=== PATIENT | female | born 1955 | race Caucasian/White ===

== ENCOUNTER 2019-09-04 15:03 | Outpatient (CLI) | payer OTHER, SELFPAY ==
[2019-09-04 16:01] LABS: Hematocrit 41.7 % (37.0-47.0); Hemoglobin 13.6 g/dL (12.0-15.0); Mean Corpuscular HGB Conc 32.6 g/dl (32-36); Mean Corpuscular Hemoglobin 32.5 pg (26-34); Mean Corpuscular Volume 99.8 fl (80-100); Mean Platelet Volume 9.2 fl (7.4-10.4); Platelet Count Result 211 k/mm3 (150-375); Red Blood Count 4.18 M/mm3 (4.2-5.4); Red Cell Distribution Width 12.9 % (11.5-14.5); White Blood Count 4.4 K/mm3 (4.5-10.0)
[2019-09-04 16:19] LABS: Alanine Aminotransferase 7 U/L (4-35); Albumin Level 4.3 g/dL (3.5-5.1); Alkaline Phosphatase 57 U/L (38-126); Amylase 114 U/L (30-110); Aspartate Amino Transferase 25 U/L (14-36); Bilirubin,Total 0.3 mg/dL (0.2-1.3); Blood Urea Nitrogen 24 mg/dL (7-17); Carbon Dioxide 26 mmol/L (22-30); Chloride 102 mmol/L (98-107); Estimated Glomerular Filt Rate > 60; Glucose 90 mg/dL (65-105); Potassium 4.2 mmol/L (3.4-5.0); Sodium 137 mmol/L (137-145)
== END 2019-09-04 15:04 | disposition home or self-care (01) ==
LOC: ANHLAB 15:05
PROVIDERS: PCP Internal Medicine; Visit Provider Internal Medicine Gastroenterology
DX: R10.9 Unspecified abdominal pain (principal)
CPT/HCPCS: 36415; 80053; 82150; 85027

== ENCOUNTER 2019-12-04 06:42 | Outpatient (CLI) | payer OTHER, SELFPAY ==
--- NOTE | ~2019-12-04 | MR_ITS ---
EXAMINATION: MR MRCP wo/w con/w 3D wo ind DATE: 12/04/2019 08:11 INDICATION: Severe abdominal pain. TECHNIQUE: Magnetic resonance imaging (MRI) of the abdomen was performed without and with 14 mL Multi Velasquez intravenous contrast. Sequences included coronal T2-weighted FS FSE, coronal T2-weighted FSE, a xial T1-weighted LAVA, coronal FS FIESTA, axial dual-echo T1-weighted SPGR, coronal lava-FLEX, sagitt al T2-weighted FSE, axial T2-weighted FSE, and axial DWI. Thick-slab T2-weighted FSE images were obta ined for magnetic resonance cholangiopancreatography (MRCP). Maximum intensity projection 3-D reconst ructions of the volumetric data were created by the technologist. Postcontrast sequences included cor onal LAVA-flex and time course of axial T1-weighted LAVA. COMPARISON: None. FINDINGS: ABDOMEN MRI: There is mild intrahepatic biliary duct dilatation. The common duct is dilated to 12 mm. The gallbladder is absent. The spleen, pancreas, adrenal glands, and kidneys are normal. There are n o dilated loops of bowel. There are no pathologically enlarged lymph nodes. There is trace pelvic asc ites. ABDOMEN MRCP: There is mild intrahepatic and extrahepatic biliary duct dilatation. The common duct is dilated to 12 mm. No choledocholithiasis. IMPRESSION: 1. Mild intrahepatic and extrahepatic biliary duct dilatation status post cholecystectomy. No choledo cholithiasis. Correlate with liver function tests to determine if this finding is clinically signific ant. Reviewed, dictated and finalized at location A. IMPRESSION: 1. Mild intrahepatic and extrahepatic biliary duct dilatation status post josef cystectomy. No choledocholithiasis. Correlate with liver function tests to dete rmine if this finding is clinically significant.
[2019-12-04 07:22] LABS: Estimated Glomerular Filt Rate > 60
== END 2019-12-04 06:43 | disposition home or self-care (01) ==
PROVIDERS: PCP Internal Medicine; Visit Provider Internal Medicine Gastroenterology
DX: R10.9 Unspecified abdominal pain (principal); Z90.49 Acquired absence of other specified parts of digestive tract
CPT/HCPCS: 74183; 76376; A9577

== ENCOUNTER 2019-12-30 04:06 | Outpatient (CLI) | payer OTHER, SELFPAY ==
[2019-12-30 19:05] LABS: SARS-CoV-2 RNA PCR Negative
== END 2019-12-30 04:07 | disposition home or self-care (01) ==
LOC: ANHCOVIDDT 04:06
PROVIDERS: PCP Internal Medicine; Visit Provider Internal Medicine Critical Care Medicine
DX: Z01.812 Encounter for preprocedural laboratory examination (principal); Z20.828 Contact with and (suspected) exposure to other viral communicable diseases
CPT/HCPCS: 87635; C9803; U0003

== ENCOUNTER 2021-12-30 17:30 | Emergency (ER) | payer OTHER, SELFPAY ==
[2021-12-30] VITALS (12 sets, daily range): BP systolic 91–139; BP diastolic 50–91; PULSE 78–92; RESP 8–21; TEMP 36.2–36.7; O2SAT 96–100
--- NOTE | ~2021-12-30 | CT_ITS ---
EXAMINATION: CT abdomen pelvis w con DATE: 12/30/2021 19:31 INDICATION: Epigastric pain. Nausea, vomiting and diarrhea. TECHNIQUE: Computed tomography (CT) of the abdomen and pelvis was performed with 100 mL Omnipaque-350 intravenous contrast. Automated exposure control and iterative reconstruction technique were employe d. The dose-length product was 497.61 mGy-cm. COMPARISON: MRI/MRCP dated 12/04/2019 FINDINGS: Mild atelectasis in the lingula and bilateral lower lobes. Heart size is normal. No pericardial or pl eural effusion. Postoperative change of prior Magaly-en-Y gastric bypass procedure. No significant celeste ge in mild intrahepatic biliary ductal dilation and mild dilation of the common bile duct which measu res up to 12 mm in maximal diameter likely related to prior cholecystectomy with surgical clips at th e gallbladder fossa. Calcified hepatic nodule along the ligamentum teres consistent with old granulom atous disease. Fluid scattered throughout the colon consistent with diarrhea. No dilated bowel to sug gest obstruction. The appendix is not visualized. No pericecal inflammatory change to suggest acute a ppendicitis. Bladder is normal. The uterus is not identified and has likely been surgically resected. No free intraperitoneal gas or fluid. No pathologically enlarged abdominal or pelvic lymphadenopathy . Mild S-shaped curvature of the thoracolumbar spine with severe spondylosis. IMPRESSION: 1. Chronic mild intrahepatic and extrahepatic biliary ductal dilation likely related to prior cholecy stectomy. Could consider correlation with liver function tests. 2. Nonspecific diarrhea. Correlate clinically for gastroenteritis. Reviewed, dictated and finalized at location A. IMPRESSION: 1. Chronic mild intrahepatic and extrahepatic biliary ductal dilation likely re lated to prior cholecystectomy. Could consider correlation with liver function tests. 2. Nonspecific diarrhea. Correlate clinically for gastroenteritis.
--- NOTE | 2021-12-30 17:45 | ED.ABDPAIN ---
HPI - Abdominal Pain General Chief Complaint: Abdominal Pain <ABBY Salazar Last Filed: 12/31/21 01:07> Stated Complaint: ABD Pain, Diarrhea <ABBY Salazar Last Filed: 12/31/21 01:07> Time Seen by Provider: 12/30/21 17:38 <ABBY Salazar Last Filed: 12/31/21 01:07> Source: patient <ABBY Salazar Last Filed: 12/31/21 01:07> Mode of arrival: ambulatory <ABBY Salazar Filed: 12/31/21 01:07> Limitations: no limitations <ABBY Salazar Filed: 12/31/21 01:07> History of Present Illness HPI narrative: Patient is a 66 y/o female who presents to the ED with c/o abdominal pain, N/V/D. Patient reports she received her flu vaccination on Saturday and began to feel unwell afterwards. She thought it was just a reaction to the vaccine. She then developed nausea, vomiting, diarrhea on Saturday evening. Symptoms, particularly the diarrhea, have since persisted. Patient also reports having upper abdominal pain, decreased intake, generalized weakness. Denies any relieving factors. She has not taken anything for pain. Patient denies any dysuria, hematuria, fevers, hematemesis, melena, rectal bleeding. <ABBY Salazar Last Filed: 12/31/21 01:07> Related Data Home Medications: Home Medications Medication Instructions Recorded Confirmed albuterol sulfate 90 mcg/actuation inhalation 12/30/21 aerosol inhaler alprazolam 1 mg tablet 1 mg PO HS PRN anxiety 12/30/21 folic acid 1 mg tablet 12/30/21 <ABBY Salazar Last Filed: 12/31/21 01:07> Allergies/Adverse Reactions: Allergies Allergy/AdvReac Type Severity Reaction Status Date / Time ipratropium Allergy Severe nervousness Verified 12/30/21 17:50 albuterol AdvReac Severe Short of Verified 12/30/21 17:50 breath amitriptyline AdvReac Severe Nervousness Verified 12/30/21 17:50 dexamethasone AdvReac Severe short of Verified 12/30/21 17:50 breath duloxetine AdvReac Severe Anxiety Verified 12/30/21 17:50 prednisone AdvReac Severe short of Verified 12/30/21 17:50 breath topiramate AdvReac Severe Nausea and Verified 12/30/21 17:50 Vomiting <Khadra Beach PA-C - Last Filed: 12/31/21 01:07> Review of Systems Review of Systems: CONSTITUTIONAL: Reports decreased appetite, generalized weakness. Denies fever, chills, or sweats. CARDIOVASCULAR: Denies chest pain. RESPIRATORY: Denies cough or dyspnea. GASTROINTESTINAL: Reports upper abdominal pain, nausea, vomiting, and diarrhea. Denies constipation, melena, rectal bleeding. GENITOURINARY: Denies dysuria or hematuria. NEUROLOGICAL: Denies focal weakness. <Khadra Beach PA-C - Last Filed: 12/31/21 01:07> All systems reviewed & are unremarkable except as noted in HPI and below <Khadra Beach PA-C - Last Filed: 12/31/21 01:07> [facility] Past Medical History Medical History: Medical History Anemia Anxiety Arthritis Asthma Chronic pain syndrome Dilated bile duct Establishing care with new doctor, encounter for Angie's thyroiditis Headache, migraine Influenza vaccination administered at current visit Kidney disease Nausea and vomiting in adult Personal history of diabetes mellitus resolved with gastric bypass Postherpetic neuralgia Psychiatric diagnosis Restless legs syndrome Skin cancer Small intestinal bacterial overgrowth Stomach ulcer Thyroid disease Vitamin B12 deficiency Vitamin D deficiency, unspecified Voice hoarseness <Khadra Beach PA-C - Last Filed: 12/31/21 01:07> Surgical History Surgical History: Surgical History History of cholecystectomy History of esophagogastroduodenoscopy (EGD) History of gastric bypass History of hysterectomy History of thyroidectomy History
[2021-12-30 18:26] LABS: Basophils Absolute Auto 0.1 K/mm3 (0.0-0.1); Basophils Percent Auto 1.8 % (0.2-1.2); Eosinophils Percent Auto 0.3 % (0-4.4); Hematocrit 40.3 % (37.0-47.0); Hemoglobin 13.7 g/dL (12.0-15.0); Immature Granulocyte Absolute 0.04 K/mm3 (0.00-0.031); Lymphocytes Percent Auto 12.9 % (18.3-44.2); Mean Corpuscular Hemoglobin 33.7 pg (26-34); Mean Corpuscular Volume 99.3 fl (80-100); Monocytes Absolute Auto 0.4 K/mm3 (0.1-0.6); Monocytes Percent Auto 10.6 % (2.6-8.5); Neutrophils Absolute Auto 2.9 K/mm3 (1.3-6.7); Neutrophils Percent Auto 73.4 % (45.5-73.1); Platelet Count Result 174 k/mm3 (150-375); Red Blood Count 4.06 M/mm3 (4.2-5.4); Red Cell Distribution Width 12.2 % (11.5-14.5); White Blood Count 3.9 K/mm3 (4.5-10.0)
[2021-12-30 18:36] LABS: Alanine Aminotransferase 15 U/L (6-35); Albumin Level 4.3 g/dL (3.5-5.1); Alkaline Phosphatase 69 U/L (38-126); Anion Gap 13 mmol/L (8-16); Aspartate Amino Transferase 45 U/L (14-36); Bilirubin,Total 0.9 mg/dL (0.2-1.3); Blood Urea Nitrogen 24 mg/dL (7-17); Calcium 7.2 mg/dL (8.4-10.2); Carbon Dioxide 24 mmol/L (22-30); Chloride 95 mmol/L (98-107); Estimated Glomerular Filt Rate 45; Glucose 112 mg/dL (65-110); Lipase 21 U/L (23-300); Potassium 3.4 mmol/L (3.4-5.0); Sodium 132 mmol/L (137-145)
[2021-12-30 18:41] LABS: Ovalocytes 1+ (NORMAL); Platelet Estimate Adequate (Adequate); Schistocytes None Seen (NORMAL)
[2021-12-30 19:00] LABS: Add Urine Microscopic? YES; Appearance Urine Cloudy (Clear); Bilirubin Urine Negative (Negative); Blood Urine 2+ (Negative); Color Urine Amber (Yellow); Glucose Urine UA Negative (Negative); Ketones Urine Trace mg/dL (Negative); Leukocyte Esterase Ur Negative LEU/UL (Negative); Mucus Urine Heavy /lpf; Nitrate Urine Negative (Negative); Protein Urine 1+ mg/dL (Negative); RBC Urine 21-50 /hpf (0-2); Urobilinogen Urine Negative mg/dL (<2.0)
[2021-12-30 19:01] LABS: Influenza A QL RT-PCR Negative (Negative); Influenza B QL RT-PCR Negative (Negative); SARS-CoV-2 RNA PCR Negative
[2021-12-30] MEDS: ONDANSETRON INJ 4 MG/2 ML VIAL IV PUSH (19:16)
[2021-12-30] MEDS: SODIUM CHLORIDE 0.9% IV 1,000 ML 999 ML IV CONT ×2 (19:32→20:54)
[2021-12-30 22:54] LABS: Toxigenic C. Diff NEGATIVE (NEGATIVE)
== END 2021-12-30 23:56 | disposition home or self-care (01) ==
PROVIDERS: Physician Assistant; Emergency Provider Emergency Medicine; PCP Physician Assistant Medical
DX: K52.9 Noninfective gastroenteritis and colitis, unspecified (principal); Z20.822 Contact with and (suspected) exposure to COVID-19; G89.4 Chronic pain syndrome; E06.3 Autoimmune thyroiditis; N28.9 Disorder of kidney and ureter, unspecified; F41.9 Anxiety disorder, unspecified; G25.81 Restless legs syndrome; E53.8 Deficiency of other specified B group vitamins; E55.9 Vitamin D deficiency, unspecified; E89.0 Postprocedural hypothyroidism; Z98.84 Bariatric surgery status; Z90.710 Acquired absence of both cervix and uterus; Z86.2 Personal history of diseases of the blood and blood-forming organs and certain disorders involving the immune mechanism; Z87.891 Personal history of nicotine dependence
CPT/HCPCS: 36415; 74177; 80053; 81001; 83690; 85025; 87045; 87077; 87086; 87186; 87427; 87493; 87502; 96361; 96365; 96375; 99284; C9803; J0131; J2405; J7030; Q9967; U0003; U0005

== ENCOUNTER 2022-09-17 18:03 | Emergency (ER) | payer MEDICARE, SELFPAY ==
[2022-09-17 18:10] VITALS: BP 107/62; PULSE 78; RESP 20; TEMP 36.5; O2SAT 97
[2022-09-17 20:14] VITALS: BP 116/80; PULSE 70; RESP 16; O2SAT 98
[2022-09-17 20:18] LABS: Basophils Percent Auto 0.9 % (0.2-1.2); Eosinophils Absolute Auto 0.1 K/mm3 (0-0.3); Eosinophils Percent Auto 1.5 % (0-4.4); Hematocrit 39.6 % (37.0-47.0); Hemoglobin 12.8 g/dL (12.0-15.0); Immature Granulocyte Absolute 0.01 K/mm3 (0.00-0.031); Immature Granulocyte Percent A 0.2 % (0-0.5); Lymphocytes Absolute Auto 1.71 K/mm3 (0.9-3.2); Lymphocytes Percent Auto 37.3 % (18.3-44.2); Mean Corpuscular HGB Conc 32.3 g/dl (32-36); Mean Corpuscular Hemoglobin 32.8 pg (26-34); Mean Corpuscular Volume 101.5 fl (80-100); Mean Platelet Volume 8.9 fl (7.4-10.4); Monocytes Absolute Auto 0.4 K/mm3 (0.1-0.6); Monocytes Percent Auto 9.6 % (2.6-8.5); Neutrophils Absolute Auto 2.3 K/mm3 (1.3-6.7); Neutrophils Percent Auto 50.5 % (45.5-73.1); Platelet Count Result 203 k/mm3 (150-375); Red Cell Distribution Width 12.9 % (11.5-14.5); White Blood Count 4.6 K/mm3 (4.5-10.0)
[2022-09-17 20:28] LABS: Anion Gap 3 mmol/L (8-16); Blood Urea Nitrogen 16 mg/dL (7-17); Calcium 5.4 mg/dL (8.4-10.2); Carbon Dioxide 35 mmol/L (22-30); Chloride 99 mmol/L (98-107); Estimated Glomerular Filt Rate > 60; Glucose 92 mg/dL (65-110); Sodium 137 mmol/L (137-145)
[2022-09-17 21:42] LABS: Parathyroid Intact 24.5 pg/mL (7.5-53.5)
--- NOTE | 2022-09-17 21:42 | ECG_ITS ---
Measurements Intervals [place] Rate: 68 P: 29 ND: 204 QRS: -10 QRSD: 78 T: 11 QT: 448 QTc: 477 Interpretive Statements SINUS RHYTHM DELAYED PRECORDIAL R/S TRANSITION LOW QRS VOLTAGE IN PRECORDIAL LEADS BASELINE ARTIFACT- I, II, III, AVR, AVL, AVF BORDERLINE ECG NO PREVIOUS ECG AVAILABLE FOR COMPARISON Electronically Signed On 09-18-2022 6:55:04 CDT by Marshall Knowles D.O.
--- NOTE | 2022-09-17 21:51 | ED.RECABL ---
HPI - Recheck/Abnormal Lab/Rx General Chief Complaint: Recheck/Abnormal Lab/Rx Stated Complaint: needs calcium infusion Time Seen by Provider: 09/17/22 20:12 Source: patient and old records reviewed Mode of arrival: ambulatory Limitations: no limitations History of Present Illness HPI narrative: Patient is a 67-year-old female who presents to the ED with report of muscle spasms. Patient reports a history of thyroidectomy and chronic hypocalcemia. She takes a calcium carbonate 500 mg supplement twice daily. Over the last 3 to 4 days, she reports having muscle spasms in her legs and hands, paraesthesias in her lips and fingers. She was advised to come to the ED for further evaluation. Patient states her symptoms have never been this severe before. She does not currently see an stock order lister. She denies any fevers, recent illness, CP, SOB, N/V, weakness. Related Data Home Medications Medication Instructions Recorded Confirmed calcium carbonate 500 mg calcium 500 mg PO BID 02/14/22 09/03/22 (1,250 mg) chewable tablet (Calcium 500) cholecalciferol (vitamin D3) 100 100 mcg PO DAILY 02/14/22 09/03/22 mcg (4,000 unit) tablet Allergies Allergy/AdvReac Type Severity Reaction Status Date / Time ipratropium Allergy Severe nervousness Verified 08/23/22 10:35 albuterol AdvReac Severe Short of Verified 08/23/22 10:35 breath amitriptyline AdvReac Severe Nervousness Verified 08/23/22 10:35 dexamethasone AdvReac Severe short of Verified 08/23/22 10:35 breath duloxetine AdvReac Severe Anxiety Verified 08/23/22 10:35 prednisone AdvReac Severe short of Verified 08/23/22 10:35 breath topiramate AdvReac Severe Nausea and Verified 08/23/22 10:35 Vomiting Review of Systems Review of Systems: CONSTITUTIONAL: Denies fever, chills, or sweats. EYES: Denies visual changes. CARDIOVASCULAR: Denies chest pain. RESPIRATORY: Denies dyspnea. GASTROINTESTINAL: Denies abdominal pain, nausea, vomiting. GENITOURINARY: Denies dysuria or hematuria. MUSCULOSKELETAL: See HPI. NEUROLOGIC: See HPI. All systems reviewed & are unremarkable except as noted in HPI and below PMFSH Past Medical History Medical History Anemia Anxiety Arthritis Asthma Chronic pain syndrome Dilated bile duct Establishing care with new doctor, encounter for Angie's thyroiditis Headache, migraine Influenza vaccination administered at current visit Kidney disease Nausea and vomiting in adult chronic, daily since Bariatric surgery Pain of right lower extremity Paresthesia hands and feet Personal history of diabetes mellitus resolved with gastric bypass Post-nasal drip Postherpetic neuralgia Psychiatric diagnosis Restless legs syndrome Skin cancer Small intestinal bacterial overgrowth Spinal stenosis Stomach ulcer Thyroid disease Vitamin B12 deficiency Vitamin D deficiency, unspecified Voice hoarseness Surgical History Surgical History History of cholecystectomy History of esophagogastroduodenoscopy (EGD) History of gastric bypass History of hysterectomy History of thyroidectomy History of tonsillectomy Family History Family History Mother Hypertension Family history of diabetes mellitus in first degree relative Family history of lung cancer Family history of heart disease in male family member before age 55 Father Malignant neoplasm of prostate Family history of heart disease in male family member before age 55 Other Family history of malignant neoplasm of breast Social History Social History Smoking packs per day: 1 Smoking cigarettes per day: 20.0 Years smoked: 15 Smoking pack-years: 15.00 Smoking status: Former smoker Second hand tobacco smoke exposure: No Smoking
[2022-09-17 22:05] LABS: Magnesium 1.9 mg/dL (1.6-2.3); Phosphorus 6.7 mg/dL (2.5-4.5)
[2022-09-17 22:06] VITALS: BP 107/75; PULSE 69; RESP 16; O2SAT 100
[2022-09-17] MEDS: CALCIUM GLUC 2,000 MG/NS 100ML 2,000 MG/100 ML BAG 100 MG IVPB (22:09)
[2022-09-17 23:11] VITALS: BP 121/74; PULSE 71; RESP 17; O2SAT 100
[2022-09-17 23:44] LABS: Free T4 Free Thyroxine Reflex 1.58 ng/dL (0.78-2.19)
[2022-09-18 00:26] LABS: Total Triiodothyronine (T3) 1.23 NG/ML (0.97-1.69)
[2022-09-18 01:43] VITALS: BP 115/80; PULSE 71; RESP 15; TEMP 36.9; O2SAT 97
[2022-09-18 03:50] VITALS: BP 122/78; PULSE 71; RESP 17; O2SAT 100
[2022-09-25 15:17] LABS: Parathyroid Hormone Related Pr 12 pg/mL (11-20)
== END 2022-09-18 03:54 | disposition short-term general hospital (02) ==
PROVIDERS: Emergency Medicine; Emergency Provider Physician Assistant; PCP Physician Assistant Medical
DX: E83.51 Hypocalcemia (principal); R20.2 Paresthesia of skin; R25.2 Cramp and spasm; E03.9 Hypothyroidism, unspecified; Z87.891 Personal history of nicotine dependence
CPT/HCPCS: 36415; 80048; 83519; 83735; 83970; 84100; 84439; 84443; 84480; 85025; 93005; 96365; 99285; J0613

== ENCOUNTER 2023-03-27 15:33 | Outpatient (CLI) | payer MEDICARE, SELFPAY ==
[2023-03-27 16:54] LABS: Iron 55 ug/dL (37-170)
[2023-03-27 16:56] LABS: Alanine Aminotransferase 13 U/L (6-35); Albumin Level 4.1 g/dL (3.5-5.1); Alkaline Phosphatase 98 U/L (38-126); Anion Gap 5 mmol/L (8-16); Aspartate Amino Transferase 41 U/L (14-36); Bilirubin,Total 0.3 mg/dL (0.2-1.3); Blood Urea Nitrogen 27 mg/dL (7-17); Carbon Dioxide 28 mmol/L (22-30); Chloride 104 mmol/L (98-107); Estimated Glomerular Filt Rate > 60; Glucose 90 mg/dL (65-110); Potassium 4.4 mmol/L (3.4-5.0); Sodium 137 mmol/L (137-145)
[2023-03-27 17:09] LABS: Percent Iron Saturation 10 % (20-50)
[2023-03-27 17:56] LABS: Ferritin 9.54 ng/mL (11.1-264)
[2023-03-27 18:25] LABS: Folic Acid > 20.0 ng/mL (2.76->20)
[2023-03-28 19:44] LABS: Immunoglobulin A 151 mg/dL (70-400); Immunoglobulin G 937 mg/dL (700-1600); Immunoglobulin M 77 mg/dL (40-230)
[2023-03-29 12:45] LABS: Kappa\\Lambda Light Chains 1.39 (0.26-1.65); Lambda Light Chain 16.8 mg/L (5.7-26.3)
[2023-03-29 17:16] LABS: Albumin 3.9 g/dL (3.8-4.8); Alpha 1 Globulin 0.3 g/dL (0.2-0.3); Alpha 2 Globulin 0.8 g/dL (0.5-0.9); Beta 1 Globulin 0.6 g/dL (0.4-0.6); Gamma Globulin 0.8 g/dL (0.8-1.7); Protein, Total 6.8 g/dL (6.1-8.1)
[2023-04-01 07:20] LABS: Methylmalonic Acid 146 nmol/L (87-318)
[2023-04-05 15:34] LABS: Soluble Transferrin Receptor 2.52 mg/L (0.76-1.76)
== END 2023-03-27 15:34 | disposition home or self-care (01) ==
LOC: ANHLAB 15:35
PROVIDERS: PCP Physician Assistant Medical; Visit Provider Internal Medicine Hematology & Oncology
DX: D47.2 Monoclonal gammopathy (principal); D64.9 Anemia, unspecified
CPT/HCPCS: 36415; 80053; 82607; 82728; 82746; 82784; 83540; 83550; 83883; 83921; 84155; 84165; 84238

== ENCOUNTER 2023-03-29 16:19 | Outpatient (CLI) | payer MEDICARE, SELFPAY ==
--- NOTE | ~2023-03-29 | XR_ITS ---
XR chest 2V DATE: 03/29/2023 16:38 INDICATION: Shortness of breath for 2 years, worsening lately. History of hypertension. TECHNIQUE: PA and lateral views COMPARISON: April 21, 2018 2 view chest FINDINGS: Heart size is within normal limits. There is aortic tortuosity. No hilar or mediastinal enl argement. No pulmonary infiltrate or consolidation, pleural effusion or pulmonary vascular congestion or pneumothorax. Postoperative change of left upper quadrant of abdomen. IMPRESSION: No active cardiopulmonary disease Reviewed, dictated and finalized at location B. MANAGER
== END 2023-03-29 16:20 | disposition home or self-care (01) ==
LOC: ANHIMG 16:21
PROVIDERS: PCP Physician Assistant Medical; Visit Provider Internal Medicine
DX: R06.02 Shortness of breath (principal)
CPT/HCPCS: 71046

== ENCOUNTER 2023-07-22 16:22 | Outpatient (CLI) | payer MEDICARE, SELFPAY ==
--- NOTE | ~2023-07-22 | MR_ITS ---
MRI of the cervical spine Clinical History: Cervicalgia Technique: Axial T2-weighted and gradient images, and sagittal T1-weighted, T2-weighted, and STIR [place] ges were acquired. Findings: There is no fracture or subluxation of the cervical spine. Vertebral bodies maintain normal height and alignment. No suspicious bone marrow signal abnormality seen. At C2-C3, there is mild degenerative disc narrowing. There is minimal disc bulge. No spinal canal piper nosis, cord compression, or neural foraminal narrowing. At C3-C4, there is minimal disc bulge and left-sided facet arthropathy. Probable minimal left neural foraminal narrowing. Right neural foramen preserved. No central canal stenosis or cord compression. At C4-C5, there is advanced degenerative distended with minimal disc bulge. There is mild bilateral f acet arthropathy with bilateral neural foraminal narrowing, left worse than right. No central canal s tenosis or cord compression. At C5-C6, there is advanced generative disc narrowing with small disc osteophyte complex. No canal st enosis or cord compression. There is mild bilateral facet arthropathy without definite neural foramin al narrowing. At C6-C7, there is advanced degenerative disc narrowing. There is minimal disc osteophyte complex, wi thout central canal stenosis or cord compression. No definite neural foraminal narrowing seen. No abnormal signal seen in the spinal cord. Paravertebral soft tissues are unremarkable. Impression: [id number] degenerative spondylosis, as above. Reviewed, dictated and finalized at [facility]. Impression: [id number] degenerative spondylosis, as above.
== END 2023-07-22 16:23 | disposition home or self-care (01) ==
LOC: ANHIMG 16:24
PROVIDERS: PCP Physician Assistant Medical; Visit Provider Physician Assistant Medical
DX: R20.2 Paresthesia of skin (principal); M48.00 Spinal stenosis, site unspecified; M47.892 Other spondylosis, cervical region
CPT/HCPCS: 72141

== ENCOUNTER 2023-07-31 09:54 | Outpatient (CLI) | payer MEDICARE, SELFPAY ==
--- NOTE | 2023-07-31 11:30 | NEURO_ITS ---
Impression: # Non-diabetic complains of numbness in upper and lower extremities. # No Carpal Tunnel Syndrome or ulnar neuropathy. # Sensory neuropathy of lower extremities. # Right posterior tibial neuropathy. # Needle/EMG exam decreased motor unit potentials but no fibs or myotonia. # Clinical correlation recommended. Nerve Conduction Studies Anti Sensory Summary Table Stim Site NR Peak (ms) P-T Amp (?V) Site1 Site2 Delta-P (ms) Dist (cm) Evin (m/s) Left Median Anti Sensory (2-3nd Digit) Wrist 3.7 27.5 Wrist 2-3nd Digit 3.7 14.0 38 Wrist 3.8 55.5 Wrist 2-3nd Digit 3.7 14.0 38 Right Median Anti Sensory (2-3nd Digit) Wrist 3.6 40.8 Wrist 2-3nd Digit 3.6 14.0 39 Wrist 3.4 51.6 Wrist 2-3nd Digit 3.6 14.0 39 Left Radial Anti Sensory (Base 1st Digit) Wrist 2.0 37.5 Wrist Base 1st Digit 2.0 0.0 Right Radial Anti Sensory (Base 1st Digit) Wrist 2.4 25.8 Wrist Base 1st Digit 2.4 0.0 Left Sup Fibular Anti Sensory (Ant Lat Mall) NO RESPONSE 14 cm NR 14 cm Ant Lat Mall 16.0 Right Sup Fibular Anti Sensory (Ant Lat Mall) NO RESPONSE 14 cm NR 14 cm Ant Lat Mall 16.0 Left Sural Anti Sensory (Lat Mall) Calf 3.8 7.3 Calf Lat Mall 3.8 16.0 42 Right Sural Anti Sensory (Lat Mall) NO RESPONSE Calf NR Calf Lat Mall 16.0 Left Ulnar Anti Sensory (5th Digit) Wrist 3.2 40.0 Wrist 5th Digit 3.2 14.0 44 Right Ulnar Anti Sensory (5th Digit) Wrist 2.8 23.7 Wrist 5th Digit 2.8 14.0 50 Motor Summary Table Stim Site NR Onset (ms) O-P Amp (mV) Site1 Site2 Delta-0 (ms) Dist (cm) Evin (m/s) Left Median Motor (Abd Poll Brev) Wrist 4.1 2.2 Elbow Wrist 4.6 28.0 61 Elbow 8.7 2.1 Right Median Motor (Abd Poll Brev) Wrist 3.6 1.9 Elbow Wrist 4.8 28.0 58 Elbow 8.4 5.8 Left Peroneal Motor (Vastus Med) Ankle 5.9 3.1 Popit Ankle 7.5 37.0 49 Popit 13.4 3.0 Right Peroneal Motor (Vastus Med) Ankle 5.9 1.0 Popit Ankle 6.4 34.0 53 Popit 12.3 1.0 Left Tibial Motor (Abd Shahid Brev) Ankle 5.5 1.9 Knee Ankle 8.9 39.0 44 Knee 14.4 3.0 Right Tibial Motor (Abd Shahid Brev) Ankle 5.2 3.0 Knee Ankle 10.3 37.0 36 Knee 15.5 2.5 Left Ulnar Motor (Abd Dig Minimi) Wrist 2.9 9.3 A Elbow Wrist 5.1 30.0 59 A Elbow 8.0 8.0 Right Ulnar Motor (Abd Dig Minimi) Wrist 2.6 10.1 A Elbow Wrist 4.7 28.0 60 A Elbow 7.3 8.4 F Wave Studies NR F-Lat (ms) L-R F-Lat (ms) Left Median (Mrkrs) (Abd Poll Brev) 27.27 0.00 Right Median (Mrkrs) (Abd Poll Brev) 27.27 0.00 Left Peroneal (Mrkrs) (EDB) 56.72 0.71 Right Peroneal (Mrkrs) (EDB) 57.43 0.71 Left Tibial (Mrkrs) (Abd Hallucis) 58.21 1.48 Right Tibial (Mrkrs) (Abd Hallucis) 56.72 1.48 Left Ulnar (Mrkrs) (Abd Dig Min) 27.42 1.07 Right Ulnar (Mrkrs) (Abd Dig Min) 26.35 1.07 EMG Side Muscle Nerve Root Ins Act Fibs Amp Dur Recrt Comment Right 1stDorInt Ulnar C8-T1 Nml Nml Nml Nml Nml Right Ext Indicis Radial (Post Int) C7-8 Nml Nml Nml Nml Nml Right Ext Digitorum Radial (Post Int) C7-8 Nml Nml Nml Nml Nml Right BrachioRad Radial C5-6 Nml Nml Nml Nml Nml Right PronatorTeres Median C6-7 Nml Nml Nml Nml Nm
== END 2023-07-31 09:55 | disposition home or self-care (01) ==
LOC: ANHNEURO 09:54
PROVIDERS: PCP Physician Assistant Medical; Visit Provider Physician Assistant Medical
DX: G62.89 Other specified polyneuropathies (principal)
CPT/HCPCS: 95886; 95913

== ENCOUNTER 2023-08-14 15:56 | Outpatient (CLI) | payer MEDICARE, SELFPAY ==
--- NOTE | ~2023-08-14 | CT_ITS ---
EXAMINATION: CT brain wo con DATE: 08/14/2023 16:22 INDICATION: Syncope. TECHNIQUE: Computed tomography (CT) of the head was performed without intravenous contrast. The mA wa s adjusted according to patient size. Iterative reconstruction technique was employed. The dose-lengt h product was 605.33 mGy-cm. COMPARISON: None FINDINGS: There is no intracranial hemorrhage, acute infarction, or abnormal intracranial mass lesion . The ventricles are normal in size. The orbits are normal. The paranasal sinuses are clear. The mast oid air cells are normal. IMPRESSION: 1. Normal brain. Reviewed, dictated and finalized at location A. IMPRESSION: 1. Normal brain.
--- NOTE | ~2023-08-14 | MR_ITS ---
MRI of the brain Clinical History: Myoclonus Technique: Axial and sagittal T1-weighted images were acquired. These were followed by axial T2-weigh patience, diffusion weighted, gradient, and FLAIR images. Following intravenous administration of 18 cc Mu ltiHance gadolinium, T1-weighted fat-sat imaging was performed in the axial and coronal planes. Findings: There is no acute infarct, intracranial hemorrhage or mass lesion. There are minimal chroni c white matter changes in the periventricular white matter bilaterally. Ventricles and subarachnoid spaces are unremarkable. Orbits are unremarkable. Paranasal sinuses and m astoid air cells are clear. Major intracranial flow voids are grossly intact. Sagittal midline structures are intact. No abnormal postcontrast enhancement identified. IMPRESSION: Minimal chronic microvascular ischemic change, otherwise unremarkable exam. Reviewed, dictated and finalized at location .
== END 2023-08-14 15:57 | disposition home or self-care (01) ==
LOC: ANHIMG 15:59
PROVIDERS: PCP Physician Assistant Medical; Visit Provider Physician Assistant Medical
DX: I67.82 Cerebral ischemia (principal); R20.2 Paresthesia of skin
CPT/HCPCS: 70450; 70553; A9577

== ENCOUNTER 2023-08-22 14:10 | Outpatient (CLI) | payer MEDICARE, SELFPAY ==
[2023-08-22 14:32] LABS: Basophils Absolute Auto 0.1 K/mm3 (0.0-0.1); Basophils Percent Auto 1.1 % (0.2-1.2); Eosinophils Percent Auto 0.9 % (0-4.4); Hematocrit 42.3 % (37.0-47.0); Hemoglobin 13.7 g/dL (12.0-15.0); Immature Granulocyte Absolute 0.01 K/mm3 (0.00-0.031); Immature Granulocyte Percent A 0.2 % (0-0.5); Immature Reticulocyte Fraction 9.1 % (3.0-15.9); Lymphocytes Absolute Auto 1.45 K/mm3 (0.9-3.2); Lymphocytes Percent Auto 31.2 % (18.3-44.2); Mean Corpuscular HGB Conc 32.4 g/dl (32-36); Mean Corpuscular Hemoglobin 31.7 pg (26-34); Mean Corpuscular Volume 97.9 fl (80-100); Mean Platelet Volume 8.8 fl (7.4-10.4); Monocytes Absolute Auto 0.4 K/mm3 (0.1-0.6); Monocytes Percent Auto 8.2 % (2.6-8.5); Neutrophils Absolute Auto 2.7 K/mm3 (1.3-6.7); Neutrophils Percent Auto 58.4 % (45.5-73.1); Platelet Count Result 210 k/mm3 (150-375); Red Blood Count 4.32 M/mm3 (4.2-5.4); Red Cell Distribution Width 14.1 % (11.5-14.5); Reticulocyte Hemoglobin Conten 34.8 pg (28.2-36.6); Reticulocyte Percent 1.42 % (0.7-4.3); Reticulocytes Absolute 0.06 10^6/uL (0.02-0.10); White Blood Count 4.7 K/mm3 (4.5-10.0)
== END 2023-08-22 14:11 | disposition home or self-care (01) ==
LOC: ANHLAB 14:12
PROVIDERS: PCP Physician Assistant Medical; Visit Provider Physician Assistant Medical
DX: D64.9 Anemia, unspecified (principal)
CPT/HCPCS: 36415; 85025; 85046

== ENCOUNTER 2024-02-26 16:31 | Outpatient (CLI) | payer MEDICARE, SELFPAY ==
--- NOTE | ~2024-02-26 | CT_ITS ---
EXAMINATION: CT abdomen pelvis wo con DATE: 02/26/2024 16:52 INDICATION: Unspecified abdominal pain. TECHNIQUE: Computed tomography (CT) of the abdomen and pelvis was performed without intravenous contr ast. Automated exposure control and iterative reconstruction technique were employed. The dose-length product was 1069.99 mGy-cm. COMPARISON: CT abdomen and pelvis 12/30/2021 FINDINGS: The visualized portions of the lung bases demonstrate mild atelectasis. A calcified left darien ng nodule is consistent with old granulomatous disease. No pleural effusion. The heart size is normal . No pericardial effusion. The liver is normal. Calcifications in the spleen are consistent with old granulomatous disease. There are changes of cholecystectomy. The pancreas, adrenal glands, and kidney s are normal. There is no urolithiasis. There is diverticulosis of the colon without evidence of dive rticulitis. There are no dilated loops of bowel. The appendix is not visualized. There are no patholo gically enlarged lymph nodes. There is no free intraperitoneal fluid. There are changes of gastric by pass procedure. There is severe lumbar spondylosis and moderate thoracic spondylosis. IMPRESSION: 1. No etiology for the patient's symptoms. Reviewed, dictated and finalized at location A. THAND REPORTER
== END 2024-02-26 16:32 | disposition home or self-care (01) ==
PROVIDERS: PCP Physician Assistant Medical; Visit Provider Physician Assistant Medical
DX: R10.9 Unspecified abdominal pain (principal)
CPT/HCPCS: 74176

== ENCOUNTER 2024-06-01 14:57 | Observation (INO) | payer MEDICARE, SELFPAY ==
[2024-06-01] VITALS (9 sets, daily range): BP systolic 133–147; BP diastolic 74–80; PULSE 61–73; RESP 17–20; TEMP 36.4–37.1; O2SAT 98–100; BMI 42.5
--- NOTE | ~2024-06-01 | MR_ITS ---
EXAMINATION: MR brain/brain stem wo/w con DATE: 06/02/2024 12:41 INDICATION: Right facial numbness. TECHNIQUE: Magnetic resonance imaging (MRI) of the brain and brainstem was performed without and with 18 mm ProHance intravenous contrast. COMPARISON: Brain MRI 08/14/2023, head CT 06/01/2024 FINDINGS: There are scattered areas of nonspecific increased T2-weighted signal intensity in the cere bral white matter similar to the prior exam, which is within normal limits for the patient's age. The re is no intracranial hemorrhage, acute infarction, or abnormal intracranial mass lesion. The ventric les are normal in size. IMPRESSION: 1. Normal aging brain. Reviewed, dictated and finalized at location A. IMPRESSION: 1. Normal aging brain.
--- NOTE | ~2024-06-01 | CT_ITS ---
EXAMINATION: CT brain wo con DATE: 06/01/2024 15:16 INDICATION: tingling/numbness one side of body . TECHNIQUE: Computed tomography (CT) of the head was performed without intravenous contrast. The mA wa s adjusted according to patient size. Iterative reconstruction technique was employed. The dose-lengt h product was 605.33 mGy-cm. COMPARISON: 08/14/2023. FINDINGS: No acute intracranial hemorrhage or extra-axial fluid collection. No hydrocephalus, mass, or herniation. No acute ischemic infarct. Unremarkable dural venous sinus attenuation. No acute osseous abnormality. The aerated spaces are clear. IMPRESSION: No acute intracranial process. Reviewed, dictated and finalized at location K.
--- NOTE | ~2024-06-01 | US_ITS ---
EXAMINATION: US carotid duplex BI DATE: 06/02/2024 10:51 INDICATION: Facial paresthesias. TECHNIQUE: Grayscale, color Doppler, and pulsed Doppler images of the cervical carotid arteries were obtained. The degree of vessel stenosis is placed in one of the following categories: normal, <50%, 5 0-69%, >=70% but less than near-occlusion, near-occlusion, or total occlusion. Note that percent sten osis relative to normal distal artery lumen diameter is indirectly measured from velocity measurement s as described by Micha, et al. Radiology 2003; 229:340-346. COMPARISON: None. FINDINGS: RIGHT: The right common carotid artery (CCA) peak systolic velocity (PSV) is 62 cm/s. The right internal car otid artery (ICA) PSV is 61 cm/s. The right ICA end-diastolic velocity (EDV) is 26 cm/s. The right IC A/CCA PSV ratio is 1.0. Grayscale and color Doppler images yield an estimate of <50% diameter reducti on from plaque in the ICA. There is antegrade flow in the right vertebral artery. LEFT: The left CCA PSV is 59 cm/s. The left ICA PSV is 45 cm/s. The left ICA EDV is 18 cm/s. The left ICA/C CA PSV ratio is 0.8. Grayscale and color Doppler images yield an estimate of <50% diameter reduction from plaque in the ICA. There is antegrade flow in the left vertebral artery. IMPRESSION: 1. <50% stenosis in the right internal carotid artery. 2. <50% stenosis in the left internal carotid artery. Reviewed, dictated and finalized at location A.
--- NOTE | ~2024-06-01 | US_ITS ---
EXAMINATION: US venous doppler [facility] DATE: 06/02/2024 18:16 INDICATION: Lower limb swelling, rule out dvt . TECHNIQUE: Grayscale images without and with compression and Doppler images of the bilateral lower ex tremity veins were obtained. COMPARISON: None FINDINGS: The right common femoral vein, profunda (deep) femoral vein, femoral vein, popliteal vein, peroneal v ein, posterior tibial veins, gastrocnemius vein, and greater saphenous vein are patent. The left common femoral vein, profunda (deep) femoral vein, femoral vein, popliteal vein, peroneal v ein, posterior tibial veins, gastrocnemius vein, and greater saphenous vein are patent. IMPRESSION: Patent bilateral lower extremity veins. No evidence of deep venous thrombosis. Reviewed, dictated and finalized at location K.
--- NOTE | 2024-06-01 15:06 | ED.NEUROSD ---
HPI - Neuro Symptoms/Deficit General Chief Complaint: Neuro Symptoms/Deficit <aKthy Meza APRN - Last Filed: 06/01/24 15:09> Stated Complaint: PCP sent her, numbness to face 05/30 <Kathy Meza APRN - Last Filed: 06/01/24 15:09> Time Seen by Provider: 06/01/24 15:00 <Kathy Meza APRN - Last Filed: 06/01/24 15:09> Focused HPI: Patient is a 9-year-old female who presents to the ER after being sent by her primary care provider. She reports she was told she has low calcium levels. Patient also endorses right-sided facial numbness that started on Saturday afternoon. This morning patient endorses left hand numbness and tingling. Patient endorses a history of right foot neuropathy. She denies any chest pain, shortness of breath, recent fevers. GENERAL: Well-appearing, well-nourished, and in no acute distress. HEAD: Normocephalic, atraumatic. CHEST: Clear to auscultation. ?No respiratory distress. HEART: Regular rate and rhythm.? NEURO: ?Alert and oriented x3. Patient screened in triage and initial orders placed.? ?Additional care and disposition to be based upon?diagnostic testing and treatment. <Kathy Meza APRN - Last Filed: 06/01/24 15:09> Source: patient <Quinn Lopez PA-C - Last Filed: 06/02/24 01:27> Mode of arrival: ambulatory <ABBY Zhang Last Filed: 06/02/24 01:27> Limitations: no limitations <Quinn Lopez PA-C - Last Filed: 06/02/24 01:27> History of Present Illness HPI Narrative: This is a 69-year-old female with PMH of hypocalcemia, GERD, chronic pain syndrome, spinal stenosis, lymphedema, anemia, peripheral neuropathy who presents to the ED for chief complaint of facial numbness that began Saturday afternoon. Patient states that the face was feeling numb and weak throughout the right side and has since decreased down to near the corner of the right side of the mouth. Patient states that this does affect her speech. States that she has had issues like this in the past with hypocalcemia. Denies numbness or weakness that is new to the extremities. She has chronic peripheral neuropathy to the right foot with weakness to the right foot chronically. Family members with the patient and states that she has not had any episodes of confusion. States that she has been taking Tums tabs multiple times a day for probable low calcium as well as her normal calcitriol. Patient states she is unsure what causes her hypocalcemia. Patient is denying double vision or dizziness. Denies head injury, neck pain, fevers, chills, abdominal pain, chest pain, shortness of breath. <Quinn Lopez PA-C - Last Filed: 06/02/24 01:27> Related Data Home Medications: Home Medications ?Medication ?Instructions ?Recorded ?Confirmed ?Last Taken ?Type calcium carbonate (Calcium 500) 1,500 mg PO TID 09/25/22 06/01/24 Unknown History calcitriol 0.5 mcg capsule 0.5 mcg PO Q12H 06/01/24 06/01/24 Unknown History ondansetron 4 mg disintegrating 4 mg PO Q6H PRN nausea and vomiting 06/01/24 06/01/24 Unknown History tablet <Kathy Meza APRN - Last Filed: 06/01/24 15:09> Allergies/Adverse Reactions: Allergies Allergy/AdvReac Type Severity Reaction Status Date / Time ipratropium Allergy Severe nervousness Verified 04/28/24 10:20 pregabalin (From Lyrica) Allergy Swelling Verified 04/28/24 10:20 of the legs albuterol AdvReac Severe Short of Verified 04/28/24 10:20 breath amitriptyline AdvReac Severe Nervousness Verified 04/28/24 10:20 dexamethasone AdvReac Severe short of Verified 04/28/24 10:20 breath duloxetine AdvReac Severe Anxiety Verified 04/28/24 10:20 prednisone AdvReac Severe short of Verified 04/28/24 10:20 breath topiramate AdvReac Severe Nausea and Verified 04/28/24 10:20 Vomiting fluoxetine (From Prozac) AdvReac [place] Verified 04/28/24 10:20 ?funny metoclopramide (From Reglan) AdvReac Anxious Verified 04/28/24 10:20 and jittery paroxetine (From Paxil) AdvReac [place] Verified 04/28/24 10:20 funny? sertraline AdvReac Jittery Verified 04/28/24 10:20 <Kathy Meza APRN - Last Filed: 06/01/24 15:09> Review of Systems Review of Systems: All systems as dictated in HPI <Quinn Lopez PA-C - Last Filed: 06/02/24 01:27> [facility] Past Medical History Medical History: Medical History (Updated 06/01/24 @ 20:35 by Delmy Cross DO) Post-traumatic stress disorder, chronic Allergic rhinitis Exocrine pancreatic insufficiency Cervical radiculopathy Iron deficiency Lichen sclerosus of vulva Chronic bronchitis Peripheral neuropathy In stocking-glove distribution Dysphagia EGD 09/12/2021-Dr. Batista Lymphedema Bilateral lower extremities Chronic malnutrition Hypogammaglobulinemia Polyarthralgia Cellulitis of toe of right foot Spinal stenosis Mild cervical at C5-6, mild lumbar at L4-5 Campylobacter diarrhea Stomach ulcer Closed fracture of right ankle Dilated bile duct Small intestinal bacterial overgrowth Nausea and vomiting in adult chronic, daily since Bariatric surgery Postherpetic neuralgia Carpal tunnel syndrome on both sides Chronic fatigue Chronic pain syndrome Hypothyroidism (acquired) Other intervertebral disc degeneration, lumbosacral region Personal history of diabetes mellitus resolved with gastric bypass Restless legs syndrome Vitamin D deficiency, unspecified Vitamin B12 deficiency Diastolic dysfunction Echocardiogram August 2018 demonstrated grade 2 diastolic dysfunction with EF is 66 5%, repeat echo May 2022 demonstrated EF of 55-60 with right ventricular dilatation no common of diastolic dysfunction Anxiety Anemia Headache, migraine Psychiatric diagnosis Kidney disease Skin cancer <Kathy Meza APRN - Last Filed: 06/01/24 15:09> Surgical History Surgical History: Surgical History (Updated 06/01/24 @ 20:32 by Delmy Cross, ) History of total abdominal hysterectomy and bilateral salpingo-oophorectomy (2003) Benign disease History of Magaly-en-Y gastric bypass (2008) History of esophagogastroduodenoscopy (EGD) History of tonsillectomy History of thyroidectomy History of cholecystectomy <Kathy Meza APRN - Last Filed: 06/01/24 15:09> Family History Family History: Family History Mother Hypertension Family history of diabetes mellitus in first degree relative Family history of lung cancer Family history of heart disease in male family member before age 55 Father Malignant neoplasm of prostate Family history of heart disease in male family member before age 55 Other Family history of malignant neoplasm of breast <Kathy Meza, STRAPPING MACHINE OPERATOR - Last Filed: 06/01/24 15:09> Social History Social History: Social History (Updated 06/01/24 @ 20:33 by Delmy Cross DO) Social History: Code status: Full code Surrogate decision maker: Smoking packs per day: 1 Smoking cigarettes per day: 20.0 Years smoked: 15 Smoking pack-years: 15.00 Smoking status: Former smoker Second hand tobacco smoke exposure: No Smoking end date: 03/11/88 Alcohol intake: never Substance use: never Substance use type: does not use Do You Feel Safe in your Home?: Yes Lack of Transportation: No Lack of Food: Never True Current Housing: I Have Housing Concerned About Future Housing: No Difficulty Paying Gas/Electric Bills: No Difficulty Paying for Meds: No Currently Unemployed: No Education: Trade/Vocational Certificate Difficulty w/ Childcare or Family Care: No Living arrangements: alone Occupation/Education: retired Gender identity (if verbalized by the patient): Female Spiritual care concerns: No <Kathy Meza, STRAPPING MACHINE OPERATOR - Last Filed: 06/01/24 15:09> Exam Narrative: GENERAL: Well-appearing, well-nourished, and in no acute distress. HEAD: Normocephalic, atraumatic. EYES: PERRLA and EOMI. ENT: Nares clear, no rhinorrhea or epistaxis. Mucous membranes moist. Oropharynx without tonsillar hypertrophy exudate or other lesions. NECK: Supple. No adenopathy or masses. CHEST: No respiratory distress. Clear to auscultation. No wheezes rales or rhonchi HEART: Regular rate and rhythm. No murmur heard. Normal peripheral pulses. ABDOMEN: Soft, nontender, nondistended, normal active bowel sounds. MSK: Normal range of motion. No edema. SKIN: Warm, dry, no rash. NEURO: Alert and oriented x4. Subjective sensation loss to the V1, V2, V3 branches of cranial nerve 5 on the right side of her face. Very slight and dysarthria noted with slight drooping at the corner of the right. Smiling and frowning is normal. Forehead is spared. Negative pronator drift bilaterally. Roll Scale Man strength equal bilaterally with no acute deficits noted to extremities. Normal finger-nose bilaterally. PSYCH: Normal mood and affect. <Quinn Lopez PA-C - Last Filed: 06/02/24 01:27> Course CUSTOMER ACQUISITION MANAGER/PA Physician Supervision For this patient encounter, I reviewed the CUSTOMER ACQUISITION MANAGER or PA documentation, treatment plan, and medical decision making; and I had [id number] time with this patient. <Canelo Parmar MD - Last Filed: 06/01/24 22:11> Consultations Consultation #1: Spoke with Dr. Willard (Neurology) who does agree that the patient needs to be admitted for MRI to rule out infarct, however we will not have official neuro covered over the next 2 days. <Quinn Lopez PA-C - Last Filed: 06/02/24 01:27> Date: 06/01/24 <Quinn Lopez PA-C - Last Filed: 06/02/24 01:27> Vital Signs Vital signs: Vital Signs Temperature 97.6 F 06/01/24 14:59 Pulse Rate 73 06/01/24 14:59 Respiratory Rate 18 06/01/24 14:59 Blood Pressure 147/75 H 06/01/24 14:59 Pulse Oximetry 100 06/01/24 14:59 Oxygen Delivery Room Air 06/01/24 14:59 Temperature 98.7 F 06/01/24 21:47 Pulse Rate 67 06/01/24 23:50 Respiratory Rate 18 06/01/24 23:50 Blood Pressure 134/77 06/01/24 21:47 Pulse Oximetry 98 06/01/24 23:50 Oxygen Delivery Room Air 06/01/24 23:50 <Kathy Meza APRN - Last Filed: 06/01/24 15:09> Vital Signs Temperature 97.6 F 06/01/24 14:59 Pulse Rate 73 06/01/24 14:59 Respiratory Rate 18 06/01/24 14:59 Blood Pressure 147/75 H 06/01/24 14:59 Pulse Oximetry 100 06/01/24 14:59 Oxygen Delivery Room Air 06/01/24 14:59 Temperature 98.7 F 06/01/24 21:47 Pulse Rate 67 06/01/24 23:50 Respiratory Rate 18 06/01/24 23:50 Blood Pressure 134/77 06/01/24 21:47 Pulse Oximetry 98 06/01/24 23:50 Oxygen Delivery Room Air 06/01/24 23:50 <Quinn Lopez PA-C - Last Filed: 06/02/24 01:27> Vital Signs Temperature 97.6 F 06/01/24 14:59 Pulse Rate 73 06/01/24 14:59 Respiratory Rate 18 06/01/24 14:59 Blood Pressure 147/75 H 06/01/24 14:59 Pulse Oximetry 100 06/01/24 14:59 Oxygen Delivery Room Air 06/01/24 14:59 Temperature 98.7 F 06/01/24 21:47 Pulse Rate 67 06/01/24 23:50 Respiratory Rate 18 06/01/24 23:50 Blood Pressure 134/77 06/01/24 21:47 Pulse Oximetry 98 06/01/24 23:50 Oxygen Delivery Room Air 06/01/24 23:50 <Canelo Parmar MD - Last Filed: 06/01/24 22:11> MDM - Neuro Symptoms/Deficit MDM Narrative Medical decision making narrative: This is a 69-year-old female who presents to the ED for chief complaint of right facial numbness, right mouth droop. Vitals are normal. Exam remarkable for the above. She does have slight dysarthria and slight drooping of the corner of the right mouth. She does have altered sensation to the right side of the face. Lab work shows mildly low calcium at 7.8, however do not feel this level calcium this sterilely correlate with an acute neurologic deficit. She is chronically hypocalcemic. CT brain shows no acute infarct. Urinalysis shows 1+ leuks, 6-10 whites but she has no urinary symptoms. Culture pending. Due to the above exam, there is concern for possible stroke. She is well out of the window for any kind of thrombolytics or neurointerventional therapy for this in the case of a stroke. I discussed with neurologist who does agree that patient needs to stay for MRI. Discussed with the hospitalist irregular as MR with and without contrast. Patient is understanding and agreeable to plan for admission and will be admitted in stable condition <Quinn Lopez PA-C - Last Filed: 06/02/24 01:27> Lab Data Result diagrams: 06/01/24 16:56 06/01/24 18:08 <Kathy Meza APRN - Last Filed: 06/01/24 15:09> Labs: Lab Results 06/01/24 06/01/24 06/01/24 Range/Units 16:56 17:24 18:08 WBC 4.7 (4.5-10.0) K/mm3 RBC 4.10 L (4.2-5.4) M/mm3 Hgb 14.1 (12.0-15.0) g/dL Hct 42.3 (37.0-47.0) % MCV 103.2 H (80-100) fl MCH 34.4 H (26-34) pg MCHC 33.3 (32-36) g/dl RDW 12.4 (11.5-14.5) % Plt Count 201 (150-375) k/mm3 MPV 9.0 (7.4-10.4) fl Immature Gran % (Auto) 0.4 (0-0.5) % Neut % (Auto) 65.5 (45.5-73.1) % Lymph % (Auto) 24.0 (18.3-44.2) % Crockett % (Auto) 8.5 (2.6-8.5) % Eos % (Auto) 0.8 (0-4.4) % Baso % (Auto) 0.8 (0.2-1.2) % Lymph # (Auto) 1.13 (0.9-3.2) K/mm3 [place] # (Auto) 0.4 (0.1-0.6) K/mm3 Eos # (Auto) 0.0 (0-0.3) K/mm3 Baso # (Auto) 0.0 (0.0-0.1) K/mm3 Abs Immat Gran (auto) 0.02 (0.00-0.031) K/mm3 Absolute Neuts (auto) 3.1 (1.3-6.7) K/mm3 Absolute Nucleated RBC 0.000 (0.0-0.012) K/mm3 Nucleated RBC % 0.0 (0.0-0.2) % PT 13.5 (11.1-14.7) Seconds INR 1.0 APTT 28.8 (22.3-36.8) Seconds Sodium 139 (137-145) mmol/L Potassium 4.1 (3.4-5.0) mmol/L Chloride 103 (98-107) mmol/L Carbon Dioxide 31 H (22-30) mmol/L Anion Gap 5 (4-12) mmol/L BUN 15 D (7-17) mg/dL Creatinine 0.80 (0.7-1.0) mg/dL Estim Creat Clear Calc Not Reportable Estimated GFR > 60 (59 - ) Glucose 93 (65-110) mg/dL Calcium 7.8 L (8.4-10.2) mg/dL Ionized Calcium Arash Pending Phosphorus 3.9 (2.5-4.5) mg/dL Magnesium 2.0 (1.6-2.3) mg/dL Total Bilirubin 0.4 (0.2-1.3) mg/dL AST 38 H (14-36) U/L ALT 18 (6-35) U/L Alkaline Phosphatase 82 (38-126) U/L Troponin I < 0.012 (0.000-0.034) ng/mL Total Protein 7.0 (6.3-8.2) g/dL Albumin 4.4 (3.5-5.1) g/dL TSH 5.930 H (0.465-4.680) uIU/mL Urine Color Yellow (Yellow) Urine Appearance Clear (Clear) Urine pH 7.5 (5.0-9.0) Ur Specific [place] 1.006 (1.001-1.035) Urine Protein Negative (Negative) mg/dL Urine Glucose (UA) Negative (Negative) mg/dL Urine Ketones Negative (Negative) mg/dL Ur Blood (Man) Negative (Negative) Urine Nitrate Negative (Negative) Urine Bilirubin Negative (Negative) Urine Urobilinogen 0.2 (<2.0) mg/dL Leukocyte Esterase Rfl 1+ H (Negative) FRANCISCA/UL Urine RBC 0-2 (0-2) /hpf Urine WBC 6-10 H (0-3) /hpf Ur Squamous Epith Cells None seen (Few) /hpf Urine Bacteria None seen /hpf Urine Casts 0-2 <Kathy Meza, STRAPPING MACHINE OPERATOR - Last Filed: 06/01/24 15:09> Lab Results 06/01/24 06/01/24 06/01/24 Range/Units 16:56 17:24 18:08 WBC 4.7 (4.5-10.0) K/mm3 RBC 4.10 L (4.2-5.4) M/mm3 Hgb 14.1 (12.0-15.0) g/dL Hct 42.3 (37.0-47.0) % MCV 103.2 H (80-100) fl MCH 34.4 H (26-34) pg MCHC 33.3 (32-36) g/dl RDW 12.4 (11.5-14.5) % Plt Count 201 (150-375) k/mm3 MPV 9.0 (7.4-10.4) fl Immature Gran % (Auto) 0.4 (0-0.5) % Neut % (Auto) 65.5 (45.5-73.1) % Lymph % (Auto) 24.0 (18.3-44.2) % Crockett % (Auto) 8.5 (2.6-8.5) % Eos % (Auto) 0.8 (0-4.4) % Baso % (Auto) 0.8 (0.2-1.2) % Lymph # (Auto) 1.13 (0.9-3.2) K/mm3 [place] # (Auto) 0.4 (0.1-0.6) K/mm3 Eos # (Auto) 0.0 (0-0.3) K/mm3 Baso # (Auto) 0.0 (0.0-0.1) K/mm3 Abs Immat Gran (auto) 0.02 (0.00-0.031) K/mm3 Absolute Neuts (auto) 3.1 (1.3-6.7) K/mm3 Absolute Nucleated RBC 0.000 (0.0-0.012) K/mm3 Nucleated RBC % 0.0 (0.0-0.2) % PT 13.5 (11.1-14.7) Seconds INR 1.0 APTT 28.8 (22.3-36.8) Seconds Sodium 139 (137-145) mmol/L Potassium 4.1 (3.4-5.0) mmol/L Chloride 103 (98-107) mmol/L Carbon Dioxide 31 H (22-30) mmol/L Anion Gap 5 (4-12) mmol/L BUN 15 D (7-17) mg/dL Creatinine 0.80 (0.7-1.0) mg/dL Estim Creat Clear Calc Not Reportable Estimated GFR > 60 (59 - ) Glucose 93 (65-110) mg/dL Calcium 7.8 L (8.4-10.2) mg/dL Ionized Calcium Arash Pending Phosphorus 3.9 (2.5-4.5) mg/dL Magnesium 2.0 (1.6-2.3) mg/dL Total Bilirubin 0.4 (0.2-1.3) mg/dL AST 38 H (14-36) U/L ALT 18 (6-35) U/L Alkaline Phosphatase 82 (38-126) U/L Troponin I < 0.012 (0.000-0.034) ng/mL Total Protein 7.0 (6.3-8.2) g/dL Albumin 4.4 (3.5-5.1) g/dL TSH 5.930 H (0.465-4.680) uIU/mL Urine Color Yellow (Yellow) Urine Appearance Clear (Clear) Urine pH 7.5 (5.0-9.0) Ur Specific [place] 1.006 (1.001-1.035) Urine Protein Negative (Negative) mg/dL Urine Glucose (UA) Negative (Negative) mg/dL Urine Ketones Negative (Negative) mg/dL Ur Blood (Man) Negative (Negative) Urine Nitrate Negative (Negative) Urine Bilirubin Negative (Negative) Urine Urobilinogen 0.2 (<2.0) mg/dL Leukocyte Esterase Rfl 1+ H (Negative) FRANCISCA/UL Urine RBC 0-2 (0-2) /hpf Urine WBC 6-10 H (0-3) /hpf Ur Squamous Epith Cells None seen (Few) /hpf Urine Bacteria None seen /hpf Urine Casts 0-2 <Quinn Lopez PA-C - Last Filed: 06/02/24 01:27> Lab Results 03/24/25 03/24/25 03/24/25 Range/Units 16:56 17:24 18:08 WBC 4.7 (4.5-10.0) K/mm3 RBC 4.10 L (4.2-5.4) M/mm3 Hgb 14.1 (12.0-15.0) g/dL Hct 42.3 (37.0-47.0) % MCV 103.2 H (80-100) fl MCH 34.4 H (26-34) pg MCHC 33.3 (32-36) g/dl RDW 12.4 (11.5-14.5) % Plt Count 201 (150-375) k/mm3 MPV 9.0 (7.4-10.4) fl Immature Gran % (Auto) 0.4 (0-0.5) % Neut % (Auto) 65.5 (45.5-73.1) % Lymph % (Auto) 24.0 (18.3-44.2) % [place]ett % (Auto) 8.5 (2.6-8.5) % Eos % (Auto) 0.8 (0-4.4) % Baso % (Auto) 0.8 (0.2-1.2) % Lymph # (Auto) 1.13 (0.9-3.2) K/mm3 [place]ett # (Auto) 0.4 (0.1-0.6) K/mm3 Eos # (Auto) 0.0 (0-0.3) K/mm3 Baso # (Auto) 0.0 (0.0-0.1) K/mm3 Abs Immat Gran (auto) 0.02 (0.00-0.031) K/mm3 Absolute Neuts (auto) 3.1 (1.3-6.7) K/mm3 Absolute Nucleated RBC 0.000 (0.0-0.012) K/mm3 Nucleated RBC % 0.0 (0.0-0.2) % PT 13.5 (11.1-14.7) Seconds INR 1.0 APTT 28.8 (22.3-36.8) Seconds Sodium 139 (137-145) mmol/L Potassium 4.1 (3.4-5.0) mmol/L Chloride 103 (98-107) mmol/L Carbon Dioxide 31 H (22-30) mmol/L Anion Gap 5 (4-12) mmol/L BUN 15 D (7-17) mg/dL Creatinine 0.80 (0.7-1.0) mg/dL Estim Creat Clear Calc Not Reportable Estimated GFR > 60 (59 - ) Glucose 93 (65-110) mg/dL Calcium 7.8 L (8.4-10.2) mg/dL Ionized Calcium Arash Pending Phosphorus 3.9 (2.5-4.5) mg/dL Magnesium 2.0 (1.6-2.3) mg/dL Total Bilirubin 0.4 (0.2-1.3) mg/dL AST 38 H (14-36) U/L ALT 18 (6-35) U/L Alkaline Phosphatase 82 (38-126) U/L Troponin I < 0.012 (0.000-0.034) ng/mL Total Protein 7.0 (6.3-8.2) g/dL Albumin 4.4 (3.5-5.1) g/dL TSH 5.930 H (0.465-4.680) uIU/mL Urine Color Yellow (Yellow) Urine Appearance Clear (Clear) Urine pH 7.5 (5.0-9.0) Ur Specific [place] 1.006 (1.001-1.035) Urine Protein Negative (Negative) mg/dL Urine Glucose (UA) Negative (Negative) mg/dL Urine Ketones Negative (Negative) mg/dL Ur Blood (Man) Negative (Negative) Urine Nitrate Negative (Negative) Urine Bilirubin Negative (Negative) Urine Urobilinogen 0.2 (<2.0) mg/dL Leukocyte Esterase Rfl 1+ H (Negative) FRANCISCA/UL Urine RBC 0-2 (0-2) /hpf Urine WBC 6-10 H (0-3) /hpf Ur Squamous Epith Cells None seen (Few) /hpf Urine Bacteria None seen /hpf Urine Casts 0-2 <Canelo Parmar MD - Last Filed: 06/01/24 22:11> Discharge Plan Discharge Clinical Impression: Right facial numbness <Kathy eMza APRN - Last Filed: 06/01/24 15:09> Patient Disposition: Still a Patient <Kathy Meza APRN - Last Filed: 06/01/24 15:09> Condition: Stable <Kathy Meza APRN - Last Filed: 06/01/24 15:09>
--- NOTE | 2024-06-01 15:50 | ECG_ITS ---
Test Date: 2024-06-01 16:05:19 Measurements Intervals Snyder Rate: 66 P: 53 MS: 229 QRS: -3 QRSD: 77 T: 27 QT: 398 QTc: 420 Interpretive Statements SINUS RHYTHM WITH FIRST DEGREE AV BLOCK LOW QRS VOLTAGE IN PRECORDIAL LEADS [QRS DEFLECTION < 1.0 mV IN CHEST LEADS] No previous ECG available for comparison Electronically Signed On 06-02-2024 15:39:46 CDT by Liz Ayala M.D.
--- NOTE | 2024-06-01 16:09 | PC.NURSE ---
Pt is a difficult stick for labs. During first attempt, pt requested I take it out. States she usually requires US. Unable to obtain labs at this time. EKG completed. Pt waiting on treatment room.
[2024-06-01 17:10] LABS: Basophils Percent Auto 0.8 % (0.2-1.2); Eosinophils Percent Auto 0.8 % (0-4.4); Hematocrit 42.3 % (37.0-47.0); Hemoglobin 14.1 g/dL (12.0-15.0); Immature Granulocyte Absolute 0.02 K/mm3 (0.00-0.031); Immature Granulocyte Percent A 0.4 % (0-0.5); Lymphocytes Absolute Auto 1.13 K/mm3 (0.9-3.2); Mean Corpuscular HGB Conc 33.3 g/dl (32-36); Mean Corpuscular Hemoglobin 34.4 pg (26-34); Mean Corpuscular Volume 103.2 fl (80-100); Monocytes Absolute Auto 0.4 K/mm3 (0.1-0.6); Monocytes Percent Auto 8.5 % (2.6-8.5); Neutrophils Absolute Auto 3.1 K/mm3 (1.3-6.7); Neutrophils Percent Auto 65.5 % (45.5-73.1); Platelet Count Result 201 k/mm3 (150-375); Red Cell Distribution Width 12.4 % (11.5-14.5); White Blood Count 4.7 K/mm3 (4.5-10.0)
--- OUTSIDE RECORDS SUMMARY | 2024-06-01 17:21 | XMS_ITS | Encounter Summary ---
Author Organization [facility] Address [facility] [place] [address] Care Team Providers Care Melt House Supervisor Name Role Phone Julio Giron MD Primary Care Provider Ayad Garcia MD Primary Care Provider [phone] Encounter Details Date Type Department Care Team (Late st Contact Info) Description 09/29/2021 [employer] Message Enc [facility] [address] [address] [facility] Provider results Social History Tobacco Use Types Packs/Day Years Used Date Smoking Tobacco: Former Cigarettes Q uit: 1989 Smokeless Tobacco: Never Alcohol Use Standard Drinks/Week Comments No 0 (1 standard drink = 0.6 oz pur e alcohol) AUDIT-C Answer Date Recorded Frequency of Alcohol Consumption Never 09/30/2018 Average Number of Drinks Not on file 019 Frequency of Binge Drinking Not on file 09/09 Comments No Sex and Gender Information Value Date Recorded Sex Assigned at Not on file Legal Sex Female 11:33 PM CDT Gender Identity Female 03/20/2021 5:50 PM CHARGING BOARD OPERATOR Sexual Orientation Straight 03/20/2021 5: 50 PM CHARGING BOARD OPERATOR COVID-19 Exposure Response Date Recorded In the last 10 days, have yo u been in contact with someone who was confirmed or suspected to have Coronavirus/COVID-19? No / Unsure 09/29/2021 9:07 AM CDT documented as of this encounter Plan of Treatment Not on file documented as of this encounter Visit Diagnoses Not on filedocumented in this encounter Care Teams Melt House Supervisor Relationship Specialty Start Date End Date Julio Giron MD PCP - General INTERNAL MEDICINE 12/26/20 10/08/21 Ayad Garcia MD [address] [place] [id number] PCP - General FAMILY PRACTICE 10/09/21 documented as of this encounter
--- OUTSIDE RECORDS SUMMARY | 2024-06-01 17:21 | XMS_ITS | Encounter Summary ---
Author Organization [facility] Address [facility] [place] [address] Care Team Providers Care Turpentine Farmer Name Role Phone Ayad Garcia MD Primary Care Provider [phone] Encounter Details Date Type Department Care Team (Late st Contact Info) Description 12/19/2022 [employer] Message Enc [facility] [place] BUSINESS OFFICE [facility], [facility] Provider Missed Call Social History Tobacco Use Types Packs/Day Years [...] CDT Gender Identity Female 03/20/2021 5:50 PM PUBLIC HEALTH ASSISTANT Sexual Orientation Straight 03/20/2021 5: 50 PM PUBLIC HEALTH ASSISTANT documented as of this encounter Plan of Treatment Not on file documented as of this encounter Visit Diagnoses Not on filedocumented in this encounter Care Teams Turpentine Farmer Relationship Specialty Start Date End Date Ayad Garcia MD [address] [place] [id number] PCP - General FAMILY PRACTICE 10/09/21 documented as of this encounter
--- OUTSIDE RECORDS SUMMARY | 2024-06-01 17:21 | XMS_ITS | Encounter Summary ---
Author Organization [facility] Address [address] [place] [address] Phone Care Team Providers Care Manager Service Desk Name Role Phone Adrienne Pereira Primary Care Provider [phone] Encounter Details Date Type Department Care Team (Late st Contact Info) Description 05/11/2024 Results Follow-Up [facility] General Neurology [address] [facility] [address] 6th [address] [place] [id number] Byron Burgess Jr., MD [address] [place] [address] Social History Tobacco Use Types Packs/Day Years Used Date Smoking Tobacco: Former Cigarettes 1 17 0 03/11/1970 - 03/11/1987 Passive Smoke Exposure: Past Smokeless Tobacco: Never Comments:wish id never start ed but i did quit cold turkey & never smoked since AUDIT-C Answer Date Recorded Q1: How often do you have a drink containing alc ohol? Never 05/11/2024 Average Number of Drinks Not on file 025 Frequency of Binge Drinking Not on file 05/2024 Comments Unknown Sex and Gender Information Value Date Recorded Sex Assigned at Not on file Legal Sex Female 11:54 PM NEWSPAPER EDITOR MANAGING Gender Identity Female 01/11/2024 3:47 AM CDT Sexual Orientation Straight 01/11/2024 3: 47 AM CDT documented as of this encounter Functional Status documented as of this encounter Plan of Treatment Not on file documented as of this encounter Visit Diagnoses Not on filedocumented in this encounter Care Teams Manager Service Desk Relationship Specialty Start Date End Date Adrienne Pereira PA [address] [place] [address] PCP - General Physician Electric Freight Car Operator 01/07/24 documented as of this encounter
--- OUTSIDE RECORDS SUMMARY | 2024-06-01 17:21 | XMS_ITS | Clinical Summary ---
Author Organization [facility] Address [address] [place] [address] Care Team Providers Care Manufacturing Project Manager Name Role Phone Dm Villanueva MD Primary Care Provider [phone] Source Comments [facility],non-owned Affiliates and Associated Physician Practices is amultiple site organization consisting of ambulatory clinics and hospital sitesin [place], [place], [place] and [place]. This disclosure is being madepursuant to the Care Everywhere program and may not contain all information available regarding this patient. Last updated 17.[facility] Allergies Active Allergy Reactions Criticality Noted Date Comments Albuterol-Ipratropium Shortness of Breath High 05/19 Amitriptyline Other Low 05/20/2015 Night sweats Dexamethasone Shortness of Breath High 05/20/2015 Duloxetine Other Low 05/20/2015 Panic attack Ipratropium Shortness of Breath High 05/20/2015 Polysorbate 80-Topiramate Other Low 05/20/2015 Passed out Prednisone Shortness of Breath High 05/20/2015 Topiramate Other,Swelling Low 05/20/2015 Passed out Medications * Be aware that medications may not be up to date on this document. Alwaysverify current medications with the patient. Medication Sig Dispensed Refills Start Date End Date Status ALPRAZolam (XANAX) 1 MG tablet Take 1 mg by mouth as needed 10/01/2019 Active ZENPEP [id number] units capsule TK 2 CS PO TID 09/10/2019 Active oxyCODONE-acetamin ophen (PERCOCET) 10-325 MG tablet TK 1 T PO FID PRN 09/23/2019 A ctive rOPINIRole (REQUIP) 2 MG tablet Take 2 mg by mouth 2 times daily 12/18/2018 Active tiZANidine (ZANAFLEX) 4 MG tablet TK 1 TO 2 TS PO BID PRF MSP OR CERVICOGENIC HEADACHE 09/23/2019 Active pregabalin (LYRICA) 200 MG capsule TK 1 C PO BID 10/15/2019 Active levothyroxine (SYNTHROID) 100 MCG tablet Take 100 mcg by mouth daily before breakfast 03/31/2019 Active NARCAN 4 MG/0.1ML nasal spray INSTILL 1 SPRAY INTO NOSTRIL NEEDED. MAY REPEAT 2ND DOSE. 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 Resolved Problems Problem Noted Date Diagnosed Date Resolved Date Constipation 11/03/2015 07/08/2017 Family History Medical History Relation Name Comments Dementia Father Heart Disease Father Status: Deceas ed Cancer Mother lung; Status: D eceased Relation Name Status Comments Father Mother Social History Tobacco Use Types Packs/Day Years Used Date Smoking Tobacco: Former Cigarettes Q uit: 03/11/1985 Smokeless Tobacco: Never Alcohol Use Standard Drinks/Week Comments No 0 (1 standard drink = 0.6 oz pur e alcohol) Sex and Gender Information Value Date Recorded Sex Assigned at Not on file Gender Identity Not on file Sexual Orientation Not on file Last Filed Vital Signs Vital Sign Reading Time Taken Comments Blood Pressure 112/70 12/22/2019 3:00 PM CDT Pulse 81 12/22/2019 3:00 PM CDT Temperature 36.3 C (97.3 F) 12/22/2019 3:00 PM CDT Respiratory Rate 16 12/22/2019 3:00 PM CDT Oxygen Saturation 96% 12/22/2019 3:00 PM CDT Inhaled Oxygen Concentration - - Weight 73.5 kg (162 lb) 04/28/2020 4:07 PM PENSION ADVISER Height 151.1 cm (4' 11.5 ) 04/28/2020 4:07 PM CS T Body Mass Index 32.17 04/28/2020 4:07 PM PENSION ADVISER Plan of Treatment Health Maintenance Due Date Last Done Comments BONE DENSITY TESTING 1955 COLOGUARD (AGES 45-75) - COL ON CA SCREENING 1957 COLON MONITORING 1957 COLONOSCOPY - COLON CA SCREENING 1957 CT COLONOGRAPHY - COLON CA SCREENING 1957 Colorectal Cancer Screening 1957 FIT - COLON CA SCREENING 1957 FLEX SIG - COLON CA SCREENING 1957 MAMMOGRAM 1957 HEPATITIS C SCREENING 02/09/1975 DTAP/TDAP/TD VACCINES (1 - Tdap) 02/14/1976 PNEUMOCOCCAL VACCINE 50+ (1 of 1 - PCV) 2007 ZOSTER VACCINE (1 of 2) 2007 SCREENING FOR DIABETES 10/20/2019 COVID-19 VACCINE ( - 2023-2 5 season) 2023 INFLUENZA VACCINE (#1) 2023 12/03/2018 DEPRESSION SCREENING 03/11/2024 LIPID TESTING 10/20/2024 10/21/2019, 08/13/2019 Respiratory Syncytial Virus (RSV) Vaccine Pt: or over 60 yrs (1 - 1-dose 75+ series) 02/14/2032 HEPATITIS B VACCINE Aged Out No longe r eligible based on patient's age to complete this topic HIB VACCINE Aged Out No longer eligi ble based on patient's age to complete this topic HPV VACCINE Aged Out No longer eligi ble based on patient's age to complete this topic MENINGOCOCCAL (Group B) VACCINE SHARED DECISION-MAKING Aged Out No longer eligible based on patient's age to complete this topic MENINGOCOCCAL GROUPS A/C/Y/W VACCINE Aged Out No longer eligible b ased on patient's age to complete this topic Care Teams Manufacturing Project Manager Relationship Specialty Start Date End Date Dm Villanueva MD [address] [address] PCP - General 05/20/15
--- OUTSIDE RECORDS SUMMARY | 2024-06-01 17:21 | XMS_ITS | Encounter Summary ---
Author Organization [facility] Address Replaced by [facility] [place] [address] Care Team Providers Care Food Mobile Driver Name Role Phone Ayad Garcia MD Primary Care Provider [phone] Encounter Details Date Type Department Care Team (Late st Contact Info) Description 06/07/2022 [facility] Message Enc [facility] [address] [address] [place], [facility] Provider Echocardiogram Social History Tobacco Use Types Packs/Day Years [...] CDT Gender Identity Female 03/20/2021 5:50 PM GUEST SERVICE AGENT Sexual Orientation Straight 03/20/2021 5: 50 PM GUEST SERVICE AGENT COVID-19 Exposure Response Date Recorded In the last 10 days, have yo u been in contact with someone who was confirmed or suspected to have Coronavirus/COVID-19? No / Unsure 06/06/2022 12:05 PM CDT documented as of this encounter Plan of Treatment Not on file documented as of this encounter Visit Diagnoses Not on filedocumented in this encounter Care Teams Food Mobile Driver Relationship Specialty Start Date End Date Ayad Garcia MD [address] [place] [address] PCP - General FAMILY PRACTICE 10/09/21 documented as of this encounter
--- OUTSIDE RECORDS SUMMARY | 2024-06-01 17:21 | XMS_ITS | Encounter Summary ---
Author Organization [facility] Address [address] [place] [address] Care Team Providers Care Personal Care Assistant Name Role Phone Adrienne Pereira Primary Care Provider [phone] Encounter Details Date Type Department Care Team (Late st Contact Info) Description 06/01/2024 Results Follow-Up [facility] Diabetes and Endocrinology [address] [place] [phone] [place] [address] [facility] [address] [place], [place] [id number] Social History Tobacco Use Types Packs/Day Years [...] on file Legal Sex Female 11:54 PM CHECK EMBOSSER Gender Identity Female 01/11/2024 3:47 AM CDT Sexual Orientation Straight 01/11/2024 3: 47 AM CDT documented as of this encounter Miscellaneous Notes * Result Encounter Note - Mi Prescott NP - 06/01/2024 5:06 PM CDT Are you taking the calcitrol? Did you use the GoodRx coupon to get the cheaper martinez? You were supposed to start 50mcg twice daily. documented in this encounter Plan of Treatment Not on file documented as of this encounter Visit Diagnoses Not on filedocumented in this encounter Care Teams Personal Care Assistant Relationship Specialty Start Date End Date Adrienne Pereira PA [address] [place] [address] PCP - General Physician Battalion Chief 01/07/24 documented as of this encounter
--- OUTSIDE RECORDS SUMMARY | 2024-06-01 17:21 | XMS_ITS | Encounter Summary ---
Author Organization [facility] Address [address] [place] [place] [address] Phone Care Team Providers Care Bowling Ball Molder Name Role Phone Dm Villanueva MD Primary Care Provider [phone] Julio Giron MD Primary Care Provider [phone] Stoney Barajas MD Unavailable [phone] Adrienne Pereira Primary Care Provider [phone] Encounter Details Date Type Department Care Team (Late st Contact Info) Description 02/18/2020 Telephone [facility] [address] [facility] [address] [place] [address] Stoney Barajas MD [address] [place] [address] Social History Tobacco Use Types Packs/Day Years Used Date Smoking Tobacco: Former Cigarettes Q uit: 03/16/1987 Smokeless Tobacco: Never PHQ-2 Answer Date Recorded PHQ-2 Score 0 08/20/2019 Comments Unknown Sex and Gender Information Value Date Recorded Sex Assigned at Not on file Legal Sex Female 12:37 PM LASTING ROOM SUPERVISOR Gender Identity Not on file Sexual Orientation Not on file documented as of this encounter Miscellaneous Notes * Telephone Encounter - Melissa Schroeder - 02/18/2020 8:12 AM CST Patient called early this morning before we opened to cancel her appointment. She stated that she has been throwing up and diarrhea since 5:00 this morning. ING ROOM SUPERVISOR documented in this encounter Plan of Treatment Not on file documented as of this encounter Visit Diagnoses Not on filedocumented in this encounter Additional Health Concerns Assessment Noted Time PHQ-9 Depression Total Score: 0 08/20/19 8:44 AM CDT documented as of this encounter Care Teams Bowling Ball Molder Relationship Specialty Start Date End Date Dm Villanueva MD [address] [place] [place] [address] PCP - General Internal Medicine 04/07/19 11/20/20 Julio Giron MD [address] [place] [address] PCP - General Internal Medicine 03/16/21 01/27/23 Adrienne Pereira PAC [address] [place] [address] PCP - General Physician Reading Assistant 01/28/23 Stoney Barajas MD [address] [place] [phone] Consulting Physician Oncology 01/28/23 documented as of this encounter
--- OUTSIDE RECORDS SUMMARY | 2024-06-01 17:22 | XMS_ITS | Referral Summary ---
Author Organization [facility] at the Medical Office Building Address [address] [place] [address] Care Team Providers Care Glaze Grinder Name Role Phone Adrienne Pereira Primary Care Provider [phone]- [phone] Encounters Date Type Department Care Team Description 06/01/2024 Results Follow-Up [facility] Diabetes and Endocrinology [address] [place] [phone] Mi Prescott NP 05/29/2024 1:20 PM CDT - 05/29/2024 11:59 PM CDT Hospital Encounter [facility] [place] [address] SOB (shortness of breath) Discharge Disposition: Discharge to home or self care 05/26/[address] [facility] General Neurology [address] [facility] 6th [place] [address] [place] [phone] Snehal Schroeder RN 05/19/[address] [facility] Scheduling [address] [place] [address] Kristal Caldera CMA 05/11/2024 Results Follow-Up [facility] General Neurology [address] [facility] 6th Floor [address] [place] [phone] Byron Burgess Jr., MD 05/11/2024 11:15 AM GEOCHEMICAL LABORATORY TECHNICIAN Lab [facility] [address] [place] [phone] Pain in right foot 05/11/2024 8:30 AM GEOCHEMICAL LABORATORY TECHNICIAN Office Visit [facility] General Neurology [address] [facility] 6th [place] [address] [place] [phone] Byron Burgess Jr., MD Imbalance (Primary Dx); Pain in right foot; Abnormal response to nerve stimulation; Memory loss; Obesity (BMI 30.0-34.9) 05/06/[address] [facility] Hematology [address] [facility] Floor 6 [place] [phone] Noelle Stevens 05/05/2024 2:00 PM GEOCHEMICAL LABORATORY TECHNICIAN Office Visit [facility] Diabetes and Endocrinology [address] [place] [phone] Mi Prescott NP Hypocalcemia (Primary Dx); Postoperative hypothyroidism; Vitamin D deficiency 04/21/2024 Orders Only [facility] Diabetes and Endocrinology [address] [place] [phone] Mi Prescott NP Hypocalcemia 04/16/2024 Telephone [facility] Pulmonology [address] [place] [phone] Parish Galarza MD 04/16/2024 9:25 AM GEOCHEMICAL LABORATORY TECHNICIAN - 04/16/2024 11:59 PM GEOCHEMICAL LABORATORY TECHNICIAN Hospital Encounter [facility] [address] [place] [address] SOB (shortness of breath) Discharge Disposition: Discharge to home or self care 04/16/2024 8:30 AM GEOCHEMICAL LABORATORY TECHNICIAN Office Visit [facility] Pulmonology [address] [place] [address] [place] [phone] Parish Galarza MD Obesity, unspecified class, unspecified obesity type, unspecified whether serious comorbidity present (Primary Dx); Cough, unspecified type; SOB (shortness of breath); Nicotine dependence, cigarettes, in remission; Snoring 04/02/2024 Orders Only [facility] Diabetes and Endocrinology [address] [place] [phone] Mi Prescott NP 03/25/2024 Orders Only LAB INTERFACE [id number] Adrienne Pereira PA 03/25/2024 12:17 PM GEOCHEMICAL LABORATORY TECHNICIAN - 03/25/2024 11:59 PM GEOCHEMICAL LABORATORY TECHNICIAN Hospital Encounter [facility] [address] [facility] [address] [place] [address] Right foot pain Discharge Disposition: Discharge to home or self care 03/25/2024 1:00 PM GEOCHEMICAL LABORATORY TECHNICIAN Office Visit [facility] Orthopaedic Surgery [address] [facility] Medical Office Building [address] [place] [phone] Maycol Koehler NP Right foot pain (Primary Dx); Pain in right foot; Abnormal response to nerve stimulation 03/09/2024 Orders Only [facility] Diabetes and Endocrinology [address] [place] [phone] Mi Prescott NP Vitamin D deficiency (Primary Dx); Hypocalcemia; Acquired hypothyroidism from Last 3 Months Allergies Active Allergy Reactions Criticality Noted Date Comments Amitriptyline Anxiety Low 07/11/2021 Bumetanide Syncope High 05/03/2023 Corticosteroids (Glucocorticoids) Anaphylaxis High 07/11/2021 Duloxetine Anxiety,Edema,Swelli n g Medium 05/20/2015 Panic attack Ipratropium Shortness of breath High 05/20/2015 Ipratropium-Albuterol Shortness of breath High 05/19 Topiramate Anxiety Low 07/11/2021 Medications albuterol HFA (PROVENTIL HFA,VENTOLIN HFA,PROAIR HFA) 90 mcg/actuation inhaler 1-2 puffs 06/03/19 22 Active ergocalciferol (VITAMIN D) 50,000 unit capsule 05/12/19 22 Active folic acid (FOLVITE) 1 mg tablet 05/12/19 22 Active HYDROcodone-acetam inophen (NORCO) 10-325 mg per tablet Take 1 tablet by mouth 3 (three) times a day as needed 06/15/19 22 Active rOPINIRole (REQUIP) 4 mg tablet TAKE 1/2 (ONE-HALF) TABLET BY MOUTH IN THE MORNING AND IN THE EVENING AND 1 AT BEDTIME 04/10/19 22 Active loratadine-pseudoe phedrine (CLARITIN-D 24-hour) 10-240 mg per 24 hr tablet Take 1 tablet by mouth daily Active ondansetron ODT (ZOFRAN-ODT) 4 mg disintegrating tablet DISSOLVE 1 TO 2 TABLETS ON THE TONGUE EVERY 6 HOURS NEEDED FOR NAUSEA OR VOMITING 09/25/19 23 Active TiZANidine (ZANAFLEX) 4 mg capsule TAKE 1 CAPSULE BY MOUTH TWICE DAILY NEEDED FOR MUSCLE SPASMS 11/16/19 23 Active nitroglycerin (NITROSTAT) 0.[address] 1 tablet (0.4 mg total) under the tongue every 5 (five) minutes as needed for chest pain Active ALPRAZolam (XANAX) 1 mg tablet Take 1 tablet (1 mg total) by mouth 2 (two) times a day as needed 04/16/19 24 Active diclofenac sodium (VOLTAREN) 1 % gel APPLY 4 GM TOPICALLY FOUR TIMES DAILY 06/12/19 24 Active furosemide (LASIX) 20 mg tablet Take 1 tablet (20 mg total) by mouth 2 (two) times a day 02/15/20 22 Active miSOPROStoL (CYTOTEC) 200 mcg tablet TAKE 1 TABLET BY MOUTH THREE TIMES DAILY AND EVERY NIGHT AT BEDTIME NEEDED 10/08/19 24 Active levothyroxine (SYNTHROID) 137 mcg tablet Take 1 tablet (137 mcg total) by mouth daily 11/25/19 24 Active potassium chloride ER (KLOR-CON) 10 mEq CR tabletIndications: Diastolic dysfunction without heart failure Take 2 tablet/capsule (20 mEq total) by mouth daily as needed (when taking more than 20 mg of furosemide) 60 tablet 3 11/28/19 24 Active Stiolto Respimat 2.5-2.5 mcg/actuation inhaler 01/22/20 24 Active clobetasoL (TEMOVATE) 0.05 % ointment 04/28/19 25 Active clotrimazole-betam ethasone (LOTRISONE) cream 04/27/19 25 Active ketoconazole (NIZORAL) 2 % cream 01/27/20 24 Active meclizine (ANTIVERT) 12.5 mg tablet 04/14/19 25 Active calcitRIOL (ROCALTROL) 0.5 mcg capsuleIndications :hypocalcemia Take 1 capsule (0.5 mcg total) by mouth 2 (two) times a day 180 capsule 3 05/05/19 25 026 Active fluticasone propionate (FLONASE) 50 mcg/actuation nasal spray Administer 2 sprays into affected nostril(s) daily 09/16/19 24 025 Discontin ued(Alter anne therapy) empagliflozin (JARDIANCE) 10 mg tabletIndications: Diastolic dysfunction without heart failure Take 1 tablet (10 mg total) by mouth daily 14 tablet 11/28/19 24 025 Discontin ued(Alter anne therapy) rosuvastatin (CRESTOR) 5 mg tablet Take 1 tablet (5 mg total) by mouth daily 30 tablet 11 01/02/20 24 025 Discontin ued(Thera py completed ) cefdinir (OMNICEF) 300 mg capsule 01/17/20 24 025 Discontin ued(Alter anne therapy) fluticasone furoate-vilanteroL (Breo Ellipta) 100-25 mcg/dose diskus inhaler Inhale 1 puff daily Rinse mouth with water after use. Do not swallow. 3 each 04/16/19 25 025 Discontin ued(Alter anne therapy) ipratropium (ATROVENT) 42 mcg (0.06 %) nasal spray Administer 2 sprays into each nostril 4 (four) times a day 60 mL 11 04/16/19 25 025 Discontin ued(Alter anne therapy) calcitRIOL (ROCALTROL) 0.5 mcg capsuleIndications :hypocalcemia Take 1 capsule (0.5 mcg total) by mouth 2 (two) times a day 180 capsule 3 04/21/19 25 025 Discontin ued(Reord er) fluconazole (DIFLUCAN) 150 mg tablet 04/27/19 25 025 Discontin ued(Thera py completed ) fluocinolone (DERMA-SMOOTHE) 0.01 % external oil 02/14/20 24 025 Discontin ued(Thera py completed ) Active Problems Problem Noted Date Diagnosed Date Iron deficiency anemia 05/10/2023 Shortness of breath 03/29/2023 Postoperative hypothyroidism 03/19/2023 Assessment & Plan (05/05/2024 4:03 PM GEOCHEMICAL LABORATORY TECHNICIAN): Chronic problems. Currently taking levothyroxine 137mcg daily. Aware of recommendations take 1st thing in morning, 30-60 minutes before food/drink/other medications but takes at HS 2 hours after evening meds. Reviewed sxs hypo/hyperthyroidism. Had normal TFTs 03/25/24. No changes at this time. Assessment & Plan (07/04/2023 3:17 PM CDT): Chronic problems. Reports historically that she's had issues regulating her thyroid levels. Reports that she used to have her TFTs checked q6 weeks. Discussed that her hormone levels may not be fully adjusted at 6wk srinivasa. Will repeat labs in 8 weeks (she was agreeable). Was in ER 06/12/23 and found to have suppressed TSH. Relates that she did not receive call from our office & adjusted her levothyroxine from 175mcg daily to 125mcg daily. Did then receive call 06/20 to move to 150mcg but she did not. Will continue on 125mcg & repeat labs early August (8 weeks from med change after ER visit). Aware of recommendations take 1st thing in morning, 30-60 minutes before food/drink/other medications but takes at HS 2 hours after evening meds. Reviewed sxs hypo/hyperthyroidism. Assessment & Plan (03/19/2023 12:54 PM GEOCHEMICAL LABORATORY TECHNICIAN): Patient currently on levothyroxine 112 mcg oral daily Recheck thyroid function test today and further plans based on it Hypocalcemia 03/19/2023 Assessment & Plan (05/05/2024 4:04 PM GEOCHEMICAL LABORATORY TECHNICIAN): Chronic problem. Currently taking Calcitrol 0.5mg daily as well as Tums approx 10/day (500 [id number] tabs). Was supposed to increase calcitriol to bid but states it was >$300. Looked up on [employer] & can get 50mcg bid for $36.75/mo. printed out coupon for her. She will start today. Resent script to [facility]. Will repeat labs mid May at [facility] at her PCP office. Discussed red flags for ER eval. DEXA completed 4/11/24: normal bone density. Assessment & Plan (07/04/2023 3:26 PM CDT): Chronic problem. Currently taking Calcitrol 0.5mg daily as well as Tums 6-8 day (500 to 1000mg tabs). Calcium level 06/20/23=8.3; was 9.0 in ER 06/12/23. PTH elevated at 166 (which jumped from 19 on to 166 on June 11). Magnesium is normal at 1.9; it is at the LOW end of normal (normal 4.7-5.5). Low calcium & lower magnesium levels can also increase your PTH level. I suggested an [id number] Magnesium supplement to take in the evening with medications to see if it would help with leg pain & lower PTH level. Assessment & Plan (03/19/2023 12:55 PM GEOCHEMICAL LABORATORY TECHNICIAN): Hypocalcemia, poor absorption, vitamin-D deficiency Continue current calcitriol and calcium supplementation Recheck levels today and further plans based on it Vitamin D deficiency 03/19/2023 Assessment & Plan (05/05/2024 4:08 PM GEOCHEMICAL LABORATORY TECHNICIAN): Chronic problem. Currently taking ergocalciferol 50,000IU weekly. Last vitamin D level normal at 58 (03/25/24). No changes at this time. Assessment & Plan (07/04/2023 3:19 PM CDT): Chronic problem. Currently taking ergocalciferol 50,000IU weekly. Last level 86 (range 30-100 at that lab) at 06/12/23 ER visit. Discussed fat soluble vitamin & may need to decrease/skip week in future if it goes to/above 100. No changes at this time. Assessment & Plan (03/19/2023 12:54 PM GEOCHEMICAL LABORATORY TECHNICIAN): Patient currently on replacement therapy Recheck levels today and further plans based on it Syncope and collapse 12/07/2022 Chest pain 12/07/2022 Dysphonia 07/11/2021 Chronic cough 07/11/2021 Laryngopharyngeal reflux (LPR) 07/11/2021 Immunizations Immunization Administration Dates Next Due Influenza, Quadrivalent, Yany l Culture-based MDCK, Preservative Free, Antibiotic Free, Intramuscular 12/04/2019 Influenza, Quadrivalent, Rec ombinant, Egg Free, Preservative Free, Intramuscular 12/29/2020 Influenza, Quadrivalent, Split, Intramuscular Influenza, Trivalent, Cell C ulture-based MDCK, Preservative Free, Antibiotic Free, Intramuscular 12/04/2019 Influenza, Unspecified 12/29/2020,12/04/2019 Tdap 12/05/2018 ZOSTER Recombinant 12/29/2020 Social History Tobacco Use Types Packs/Day Years Used Date Smoking Tobacco: Former Cigarettes 1 17 0 03/11/1970 - 03/11/1987 Passive Smoke Exposure: Past Smokeless Tobacco: Never Tobacco Cessation:Counseling Given: Not Answered Comments:wish id never started but i did quit cold turkey & never smoked since AUDIT-C Answer Date Recorded Q1: How often do you have a drink containing alc ohol? Never 05/11/2024 Average Number of Drinks Not on file 025 Frequency of Binge Drinking Not on file 05/2024 Comments Unknown Sex and Gender Information Value Date Recorded Sex Assigned at Not on file Legal Sex Female 11:54 PM GEOCHEMICAL LABORATORY TECHNICIAN Gender Identity Female 01/11/2024 3:47 AM CDT Sexual Orientation Straight 01/11/2024 3: 47 AM CDT Last Filed Vital Signs Vital Sign Reading Time Taken Comments Blood Pressure 142/82 05/11/2024 8:19 AM GEOCHEMICAL LABORATORY TECHNICIAN Pulse 66 05/11/2024 8:19 AM GEOCHEMICAL LABORATORY TECHNICIAN Temperature 36.4 C (97.5 F) 04/16/2024 8:33 AM GEOCHEMICAL LABORATORY TECHNICIAN Respiratory Rate 18 05/05/2024 1:51 PM GEOCHEMICAL LABORATORY TECHNICIAN Oxygen Saturation 98% 04/16/2024 8:33 AM GEOCHEMICAL LABORATORY TECHNICIAN Inhaled Oxygen Concentration - - Weight 95.7 kg (211 lb) 05/11/2024 8:19 AM GEOCHEMICAL LABORATORY TECHNICIAN Height 149.9 cm (4' 11 ) 05/11/2024 8:19 AM GEOCHEMICAL LABORATORY TECHNICIAN Body Mass Index 42.62 05/11/2024 8:19 AM GEOCHEMICAL LABORATORY TECHNICIAN Plan of Treatment Not on file Procedures Procedure Name Priority Date/Time Associated Diagnosis Comments PULMONARY FUNCTION TEST (PFT) Routine 05/29/2024 2:35 PM CDT SOB (shortness of breath) PTH Routine 05/26/2024 9:52 AM CDT BASIC METABOLIC PANEL Routine 05/26/2024 9:52 AM CDT COPY(IES) SENT TO: Routine 05/26/2024 9: 52 AM CDT CALCIUM, IONIZED Routine 05/26/2024 9:52 AM CDT Hypocalcemia DERRICK QUALITATIVE WITH REFLEX TO DERRICK QUANTITATIVE Routine 05/11/2024 10:13 AM GEOCHEMICAL LABORATORY TECHNICIAN Pain in right foot ANTI-DOUBLE STRANDED DNA ANTIBODIES Routine 05/11/2024 10:13 AM GEOCHEMICAL LABORATORY TECHNICIAN Pain in right foot ASHLYN ANTIBODY EVALUATION WITH REFLEX Routine 05/11/2024 10:13 AM GEOCHEMICAL LABORATORY TECHNICIAN Pain in right foot XR CHEST PA LATERAL 2 VIEWS Schedule Routine, Read Routine (OP Routine) 04/16/2024 9:42 AM GEOCHEMICAL LABORATORY TECHNICIAN SOB (shortness of breath) XR FOOT RIGHT 3 OR MORE VIEWS Schedule Routine, Read Routine (OP Routine) 03/25/2024 1:16 PM GEOCHEMICAL LABORATORY TECHNICIAN Right foot pain COPY(IES) SENT TO: Routine 03/25/2024 9: 52 AM GEOCHEMICAL LABORATORY TECHNICIAN CBC WITH AUTO DIFFERENTIAL Routine 03/25/2024 9:52 AM GEOCHEMICAL LABORATORY TECHNICIAN Iron deficiency anemia, unspecified iron deficiency anemia type FERRITIN Routine 03/25/2024 9:52 AM GEOCHEMICAL LABORATORY TECHNICIAN Iron deficiency anemia, unspecified iron deficiency anemia type IRON PROFILE W/ IBC Routine 03/25/2024 9 :52 AM GEOCHEMICAL LABORATORY TECHNICIAN Iron deficiency anemia, unspecified iron deficiency anemia type VITAMIN D 25 HYDROXY Routine 03/25/2024 9:48 AM GEOCHEMICAL LABORATORY TECHNICIAN TSH W/REFL FT4 Routine 03/25/2024 9:48 AM GEOCHEMICAL LABORATORY TECHNICIAN T4, FREE Routine 03/25/2024 9:48 AM GEOCHEMICAL LABORATORY TECHNICIAN ANACHOICE(R) SPECIFIC AB CASCADING REFLEX Routine 03/25/2024 9:48 AM GEOCHEMICAL LABORATORY TECHNICIAN CYCLIC CITRUL PEPTIDE ANTIBODY, IGG Routine 03/25/2024 9:48 AM GEOCHEMICAL LABORATORY TECHNICIAN CRP, HIGH SENSITIVITY Routine 03/25/2024 9:48 AM GEOCHEMICAL LABORATORY TECHNICIAN RHEUMATOID FACTOR Routine 03/25/2024 9:4 8 AM GEOCHEMICAL LABORATORY TECHNICIAN ERYTHROCYTE SEDIMENTATION RATE Routine 03/25/2024 9:48 AM GEOCHEMICAL LABORATORY TECHNICIAN COMPREHENSIVE METABOLIC PANEL Routine 03/25/2024 9:48 AM GEOCHEMICAL LABORATORY TECHNICIAN T4, FREE Routine 03/25/2024 Acquired hypothyroidism TSH Routine 03/25/2024 Acquired hypothyroidism VITAMIN D 25 HYDROXY Routine 03/25/2024 Vitamin D deficiency COMPREHENSIVE METABOLIC PANEL Routine 03/25/2024 Hypocalcemia from Last 3 Months Results * COPY(IES) SENT TO: (05/26/2024 9:52 AM CDT) COPY(IES) SENT TO: [facility] Comment: [facility] [address] [place] [address] 05/26/2024 9:52 AM CDT 05/26/2024 9:56 AM CDT Narrative [facility] - 05/27/2024 4:39 PM CDT FASTING:YES FASTING: YES us Mi Prescott REPLENISHER LAB BLOOD ORDERABLES Patricia l Result [facility] * (ABNORMAL) Calcium, ionized (05/26/2024 9:52 AM CDT) Calcium, Ionized 4.3(L) 4.7 - 5.5 mg/dL [facility] Comment: Your request to have a duplicate copy faxed has been acknowledged. Queued to: [id number] Blood 05/26/2024 9:52 AM CDT 05/26/2024 9:56 AM CDT Narrative [facility] - 05/27/2024 4:39 PM CDT FASTING:YES FASTING: YES Mi Prescott REPLENISHER LAB BLOOD ORDERABLES Patricia live Result Performing Organization Address [facility] Co de Phone Number [facility] [address] [place] [address] * (ABNORMAL) PTH (05/26/2024 9:52 AM CDT) Parathyroid hormone, intact 15(L) 16 - 77 pg/mL [facility] Comment: Interpretive Guide Intact PTH Calcium ------- Normal Parathyroid Normal Normal Hypoparathyroidism Low or Low Normal Low Hyperparathyroidism Primary Normal or High High Secondary High Normal or Low Tertiary High High Non-Parathyroid Hypercalcemia Low or Low Normal High 05/26/2024 9:52 AM CDT 05/26/2024 9:56 AM CDT Narrative [facility] - 05/27/2024 4:39 PM CDT FASTING:YES FASTING: YES us Mi Prescott REPLENISHER LAB BLOOD ORDERABLES Patricia live Result Performing Organization Address [facility] de Phone Number [facility] [address] [place] [address] * (ABNORMAL) Basic metabolic panel (05/26/2024 9:52 AM CDT) Glucose 88 65 - 99 mg/dL [facility] Comment: Fasting reference interval BUN 22 7 - 25 mg/dL [facility] Creatinine 0.89 0.50 - 1.05 mg/dL [facility] eGFR 71 > OR = 60 mL/min/1.7 3m2 [facility] BUN/creat ratio SEE NOTE: 6 - 22 (calc) [facility] Comment: Not Reported: BUN and Creatinine are within reference range. Sodium 141 135 - 146 mmol/L [facility] Potassium, pl 4.1 3.5 - 5.3 mmol/L [facility] Chloride 102 98 - 110 mmol/L [facility] CO2 30 20 - 32 mmol/L [facility] Calcium 7.7(L) 8.6 - 10.4 mg/dL [facility] 05/26/2024 9:52 AM CDT 05/26/2024 9:56 AM CDT Narrative [facility] - 05/27/2024 4:39 PM CDT FASTING:YES FASTING: YES us Mi Prescott REPLENISHER LAB BLOOD ORDERABLES Patricia l Result [facility] [address] [place] [address] * DERRICK ab ql w/rflx to DERRICK qn (05/11/2024 10:13 AM GEOCHEMICAL LABORATORY TECHNICIAN) DERRICK Negative Comment: Interpretive Data Normal range for DERRICK Qualitative Antibody = Negative. 1. DERRICK is performed using indirect immunofluorescence against HEp-2 cells 2. DERRICK titers are performed on all positive qualitative results. 3. A significantly positive DERRICK result is defined as a positive nuclear fluorescence at a titer of 1:80 or greater. 4. 15% of normal people above age 65 have significantly positive DERRICK results. 5% or less of normal people age 65 or under have significantly positive DERRICK results. Current interpretive data was last revised on 2019. Blood 05/11/2024 10:1 3 AM GEOCHEMICAL LABORATORY TECHNICIAN 05/11/2024 10:47 AM GEOCHEMICAL LABORATORY TECHNICIAN Byron Burgess Jr., MD LAB BLOOD ORDERABL ES Final Result Performing Organization Address [facility] de Phone Number [facility] [employer] [place] [address] * Anti-double stranded DNA abs (05/11/2024 10:13 AM GEOCHEMICAL LABORATORY TECHNICIAN) dsDNA Ab <1.0 <=4.0 IUnits/mL Comment: Interpretive Data Negative: < or = 4 IUnits/mL Indeterminate: 5 - 9 IUnits/mL Positive: > or = 10 IUnits/mL Current interpretive data was last revised on 2016. Blood 05/11/2024 10:1 3 AM GEOCHEMICAL LABORATORY TECHNICIAN 05/11/2024 10:47 AM GEOCHEMICAL LABORATORY TECHNICIAN Byron Burgess Jr., MD LAB BLOOD ORDERABL ES Final Result Performing Organization Address [facility] de Phone Number [facility] [employer] [place] [address] * ASHLYN ab eval w/reflex (05/11/2024 10:13 AM GEOCHEMICAL LABORATORY TECHNICIAN) Pathologist [facility] ASHLYN ab Negative Negative Comment: Interpretive Data Positive Screens will be reflexed to specific testing for Antibodies against the following antigens: Vielka-1 Ab, MACHINE TAPER Ab, Scl-70 Ab, Greene Ab, SS-A/Ro Ab, and SS- B/La Ab. Further testing for dsDNA, Centromere, or Ribosomal P antibodies is suggested in patient with a positive screen and negative specific antibodies. Current interpretive data was last revised on 2022. Blood 05/11/2024 10:1 3 AM GEOCHEMICAL LABORATORY TECHNICIAN 05/11/2024 10:47 AM GEOCHEMICAL LABORATORY TECHNICIAN Byron Burgess Jr., MD LAB BLOOD ORDERABL ES Final Result Performing Organization Address [facility] de Phone Number [facility] [place] [place] [address] * XR Chest Pa Lateral 2 Views (04/16/2024 9:42 AM GEOCHEMICAL LABORATORY TECHNICIAN) Anatomical Region Laterality Modality Body, Chest N/A Computed Radiogr aphy 04/20/2024 11:2 2 AM GEOCHEMICAL LABORATORY TECHNICIAN Narrative 04/20/2024 11:23 AM GEOCHEMICAL LABORATORY TECHNICIAN EXAM DESCRIPTION: XR CHEST PA LATERAL 2 VIEWS REASON FOR STUDY: Patient reports it has been harder to breathe for the past 6 months. Reports past 3 years, she has been having trouble breathing. History of asthma. 20 years ago, patient had part of thyroid removed. TECHNIQUE: 2 radiographic view(s) of the chest. COMPARISON: None FINDINGS: LUNGS: No focal opacity, pleural effusion, or pneumothorax. HEART/MEDIASTINUM: Cardiac silhouette normal in size. Mediastinal and hilar contours appear normal. LINES/TUBES: None. BONES: No acute osseous abnormality. IMPRESSION: No acute cardiopulmonary abnormality. THIS IS AN ELECTRONICALLY VERIFIED FINAL REPORT 04/20/2024 11:23 AM - Electronically signed by Angel Villanueva M.D. AM T: Report ID: [id number] Reading Location: [place] [id number] Procedure Note Angel Villanueva MD - 04/20/2024 EXAM DESCRIPTION: XR CHEST PA LATERAL 2 VIEWS REASON FOR STUDY: Patient reports it has been harder to breathe for the past 6 months.Reports past 3 years, she has been having trouble breathing. History of asthma. 20 years ago, patient had part of thyroid removed. TECHNIQUE: 2 radiographic view(s) of the chest. COMPARISON: None FINDINGS: LUNGS: No focal opacity, pleural effusion, or pneumothorax. HEART/MEDIASTINUM: Cardiac silhouette normal in size. Mediastinal andhilar contours appear normal. LINES/TUBES: None. BONES: No acute osseous abnormality. IMPRESSION: No acute cardiopulmonary abnormality. THIS IS AN ELECTRONICALLY VERIFIED FINAL REPORT 04/20/2024 11:23 AM - Electronically signed by Angel Villanueva M.D. AM T: Report ID: [id number] Reading Location: [id number] us Parish Galarza MD IMG XR PROCEDURES Final Resu lt * XR Foot Right 3 or More Views (03/25/2024 1:16 PM GEOCHEMICAL LABORATORY TECHNICIAN) Anatomical Region Laterality Modality Lower Extremities, Foot Right Computed Radiography 03/25/2024 1:30 PM GEOCHEMICAL LABORATORY TECHNICIAN Impressions 03/25/2024 1:30 PM GEOCHEMICAL LABORATORY TECHNICIAN 1. Mild distal right Achilles tendinopathy and small heel spur. 2. Mild right midfoot osteoarthritis. Electronically signed by: Ifeanyi Lewis M.D. Narrative 03/25/2024 1:30 PM GEOCHEMICAL LABORATORY TECHNICIAN EXAMINATION: XR FOOT RIGHT 3 OR MORE VIEWS HISTORY: Right foot pain FINDINGS: 3 view weightbearing examination of the right foot is read without comparison. There is mild midfoot osteoarthritis involving the tarsometatarsal joints. The other joint spaces and alignment are normal. There is mild distal Achilles tendinopathy with intratendinous calcification in tendon thickening, as well as small insertional enthesophyte and plantar spur. Procedure Note Ifeanyi Lewis MD - 03/25/2024 EXAMINATION: XR FOOT RIGHT 3 OR MORE VIEWS HISTORY: Right foot pain FINDINGS: 3 view weightbearing examination of the right foot is read without comparison. There is mild midfoot osteoarthritis involving the tarsometatarsal joints. The other joint spaces and alignment are normal. There is mild distal Achilles tendinopathy with intratendinous calcification in tendon thickening, as well as small insertional enthesophyte and plantar spur. IMPRESSION: 1. Mild distal right Achilles tendinopathy and small heel spur. 2. Mild right midfoot osteoarthritis. Electronically signed by: Ifeanyi Lewis M.D. Maycol Koehler NP IMG XR PROCEDURES Final Re sult * COPY(IES) SENT TO: (03/25/2024 9:52 AM GEOCHEMICAL LABORATORY TECHNICIAN) COPY(IES) SENT TO: [facility] Comment: [facility] ADMN [address] [place] [address] 03/25/2024 9:52 AM GEOCHEMICAL LABORATORY TECHNICIAN 03/25/2024 9:52 AM GEOCHEMICAL LABORATORY TECHNICIAN Narrative [facility] - 03/26/2024 6:49 AM GEOCHEMICAL LABORATORY TECHNICIAN FASTING:YES FASTING: YES Rubi Schofield REPLENISHER LAB BLOOD ORDERABLES Final Result [facility] * Iron profile w/ IBC (03/25/2024 9:52 AM GEOCHEMICAL LABORATORY TECHNICIAN) Pathologist [facility] Iron 96 45 - 160 mcg/dL [facility] TIBC 371 250 - 450 mcg/dL (calc) [facility] Iron saturation 26 16 - 45 % (calc) [facility] Blood 03/25/2024 9:52 AM GEOCHEMICAL LABORATORY TECHNICIAN 03/25/2024 9:52 AM GEOCHEMICAL LABORATORY TECHNICIAN Narrative [facility] - 03/26/2024 6:49 AM GEOCHEMICAL LABORATORY TECHNICIAN FASTING:YES FASTING: YES Rubi Schofield REPLENISHER LAB BLOOD ORDERABLES Final Result Performing Organization Address City/[facility]/ZIP Co de Phone Number [facility] [address] [place] [address] * (ABNORMAL) CBC with auto differential (03/25/2024 9:52 AM GEOCHEMICAL LABORATORY TECHNICIAN) Pathologist [facility] WBC 4.2 3.8 - 10.8 Thousand/u L [facility] RBC, POC 3.95 3.80 - 5.10 Million/uL [facility] Hgb 13.2 11.7 - 15.5 g/dL [facility] Hct 40.1 35.0 - 45.0 % [facility] MCV 101.5(H) 80.0 - 100.0 fL [facility] MCH 33.4(H) 27.0 - 33.0 pg [facility] MCHC 32.9 32.0 - 36.0 g/dL [facility] Comment: For adults, a slight decrease in the calculated MCHC value (in the range of 30 to 32 g/dL) is most likely not clinically significant; however, it should be interpreted with caution in correlation with other red cell parameters and the patient's clinical condition. Rdw 11.9 11.0 - 15.0 % [facility] Platelets 235 140 - 400 Thousand/u L [facility] MPV 9.3 7.5 - 12.5 fL [facility] Neutrophils, abs 2,167 1,500 - 7,800 cells/uL [facility] Lymphocytes, abs 1,525 850 - 3,900 cells/uL [facility] Monocyte abs 407 200 - 950 cells/uL [facility] Eosinophils, abs 71 15 - 500 cells/uL [facility] Basophils, abs 29 0 - 200 cells/uL [facility] Neutrophils 51.6 % [facility] Lymphocyte pct 36.3 % [facility] Monocytes 9.7 % [facility] Eosinophils 1.7 % [facility] Basophils 0.7 % [facility] Blood 03/25/2024 9:52 AM GEOCHEMICAL LABORATORY TECHNICIAN 03/25/2024 9:52 AM GEOCHEMICAL LABORATORY TECHNICIAN Narrative [facility] - 03/26/2024 6:49 AM GEOCHEMICAL LABORATORY TECHNICIAN FASTING:YES FASTING: YES Rubi Schofield NP LAB BLOOD ORDERABLES Final Result [facility] [address] [place] [address] * Ferritin (03/25/2024 9:52 AM GEOCHEMICAL LABORATORY TECHNICIAN) Ferritin 20 16 - 288 ng/mL [facility] Blood 03/25/2024 9:52 AM GEOCHEMICAL LABORATORY TECHNICIAN 03/25/2024 9:52 AM GEOCHEMICAL LABORATORY TECHNICIAN Narrative [facility] - 03/26/2024 6:49 AM GEOCHEMICAL LABORATORY TECHNICIAN FASTING:YES FASTING: YES Rubi Schofield REPLENISHER LAB BLOOD ORDERABLES Final Result [facility] [address] [place] [address] * TSH W/REFL FT4 (03/25/2024 9:48 AM GEOCHEMICAL LABORATORY TECHNICIAN) Pathologist [facility] TSH 2.07 0.40 - 4.50 mIU/L [facility] 03/25/2024 9:48 AM GEOCHEMICAL LABORATORY TECHNICIAN 03/25/2024 9:49 AM GEOCHEMICAL LABORATORY TECHNICIAN Narrative [facility] - 03/27/2024 12:44 AM GEOCHEMICAL LABORATORY TECHNICIAN FASTING:YES Patient Report History copied from and originally reported to client [id number] in site (ST) Adrienne VALDEZ LAB BLOOD ORDERABLES Final Result [facility] [address] [place] [address] * ANAChoice (R) specific Ab cascading reflex (03/25/2024 9:48 AM GEOCHEMICAL LABORATORY TECHNICIAN) Pathologist [facility] DERRICK, qual NEGATIVE NEGATIVE [facility] Comment: A negative DERRICK Multiplex indicates the absence of detectable antibodies to component analytes consisting of double stranded DNA (dsDNA), chromatin, ribonucleoprotein (MACHINE TAPER), Greene/MACHINE TAPER (Sm/MACHINE TAPER), Greene (Sm), SS-A, SS-B, Vielka-1, centromere B, Scl-70 and ribosomal P. A negative result should be interpreted in the context of the clinical and laboratory findings and does not rule out autoimmune disease characterized by other autoantibody specificities such as rheumatoid arthritis, autoimmune hepatitis, primary biliary cirrhosis, autoimmune thyroiditis, Gregg's disease, pernicious anemia, autoimmune neuropathies, vasculitis, celiac disease, and bullous disease. For additional information, please refer to http://education.[employer]/faq/MSI854 (This link is being provided for informational/ educational purposes only.) 03/25/2024 9:48 AM GEOCHEMICAL LABORATORY TECHNICIAN 03/25/2024 9:49 AM GEOCHEMICAL LABORATORY TECHNICIAN Narrative [facility] - 03/27/2024 12:44 AM GEOCHEMICAL LABORATORY TECHNICIAN FASTING:YES Patient Report History copied from and originally reported to client [id number] in site ([facility]) Adrienne VALDEZ LAB BLOOD ORDERABLES Final Result Performing Organization Address [facility] Co de Phone Number [facility] [address] [place] [address] * Cyclic citrul peptide antibody, IgG (03/25/2024 9:48 AM GEOCHEMICAL LABORATORY TECHNICIAN) Pathologist [facility] Cyclic citrullinated peptide ab, IgG <16 UNITS [facility] Comment: Reference Range Negative: <20 Weak Positive: 20-39 Moderate Positive: 40-59 Strong Positive: >59 03/25/2024 9:48 AM GEOCHEMICAL LABORATORY TECHNICIAN 03/25/2024 9:49 AM GEOCHEMICAL LABORATORY TECHNICIAN Narrative [facility] - 03/27/2024 12:44 AM GEOCHEMICAL LABORATORY TECHNICIAN FASTING:YES Patient Report History copied from and originally reported to client [id number] in site ([facility]) Adrienne VALDEZ LAB BLOOD ORDERABLES Final Result Performing Organization Address [facility] de Phone Number [facility] [employer] [facility] [address] [address] [place] [address] * Vitamin D 25 hydroxy (03/25/2024 9:48 AM GEOCHEMICAL LABORATORY TECHNICIAN) [facility] Vitamin D 25-OH 58 30 - 100 ng/mL [facility] Comment: Vitamin D Status 25-OH Vitamin D: Deficiency: <20 ng/mL Insufficiency: 20 - 29 ng/mL Optimal: > or = 30 ng/mL For 25-OH Vitamin D testing on patients on D2-supplementation and patients for whom quantitation of D2 and D3 fractions is required, the QuestAssureD(TM) 25-OH VIT D, (D2,D3), LC/MS/MS is recommended: order code 36361 (patients >2yrs). Comment [facility] Comment: See Note 1 Note 1 For additional information, please refer to http://education.[employer]/faq/CHU105 (This link is being provided for informational/ educational purposes only.) 03/25/2024 9:48 AM GEOCHEMICAL LABORATORY TECHNICIAN 03/25/2024 9:49 AM GEOCHEMICAL LABORATORY TECHNICIAN Narrative [facility] - 03/27/2024 12:44 AM GEOCHEMICAL LABORATORY TECHNICIAN FASTING:YES Patient Report History copied from and originally reported to client [id number] in site ([facility]) Adrienne VALDEZ LAB BLOOD ORDERABLES Final Result Performing Organization Address City/[facility]/ZIP Co de Phone Number [facility] [address] [place] [address] * Erythrocyte sedimentation rate (03/25/2024 9:48 AM GEOCHEMICAL LABORATORY TECHNICIAN) [facility] Erythrocyte sedimentation rate 9 < OR = 30 mm/h [facility] 03/25/2024 9:48 AM GEOCHEMICAL LABORATORY TECHNICIAN 03/25/2024 9:49 AM GEOCHEMICAL LABORATORY TECHNICIAN Narrative [facility] - 03/27/2024 12:44 AM GEOCHEMICAL LABORATORY TECHNICIAN FASTING:YES Patient Report History copied from and originally reported to client [id number] in site ([facility]) dArienne VALDEZ LAB BLOOD ORDERABLES Final Result Performing Organization Address [facility]/ZIP Co de Phone Number [facility] [address] [place] [address] * Rheumatoid factor (03/25/2024 9:48 AM GEOCHEMICAL LABORATORY TECHNICIAN) [facility] Rheumatoid factor, quant <10 <14 IU/mL [facility] 03/25/2024 9:48 AM GEOCHEMICAL LABORATORY TECHNICIAN 03/25/2024 9:49 AM GEOCHEMICAL LABORATORY TECHNICIAN Narrative [facility] - 03/27/2024 12:44 AM GEOCHEMICAL LABORATORY TECHNICIAN FASTING:YES Patient Report History copied from and originally reported to client [id number] in site ([facility]) Adrienne VALDEZ LAB BLOOD ORDERABLES Final Result Performing Organization Address [facility] Co de Phone Number [facility] [address] [place] [address] * CRP (cardiac risk) (03/25/2024 9:48 AM GEOCHEMICAL LABORATORY TECHNICIAN) [facility] hsCRP 1.1 mg/L [facility] Comment: Reference Range Optimal <1.0 Mikki PS et al. Endocr Pract.2017;23(Suppl 2):1-87. For ages >17 Years: hs-CRP mg/L Risk According to AHA/CDC Guidelines <1.0 Lower relative cardiovascular risk. 1.0-3.0 Average relative cardiovascular risk. 3.1-10.0 Higher relative cardiovascular risk. Consider retesting in 1 to 2 weeks to exclude a benign transient elevation in the baseline CRP value secondary to infection or inflammation. >10.0 Persistent elevation, upon retesting, may be associated with infection and inflammation. Dakotah TA, Jaz GA, Devendra RW, et al. Markers of inflammation and cardiovascular disease: application to clinical and public health practice: A statement for healthcare professionals from the Centers for Disease Control and Prevention and the [place] [employer]. Circulation 2003; 107(3): 499-511. 03/25/2024 9:48 AM GEOCHEMICAL LABORATORY TECHNICIAN 03/25/2024 9:49 AM GEOCHEMICAL LABORATORY TECHNICIAN Narrative [facility] - 03/27/2024 12:44 AM GEOCHEMICAL LABORATORY TECHNICIAN FASTING:YES Patient Report History copied from and originally reported to client [id number] in site (ST) Adrienne VALDEZ LAB BLOOD ORDERABLES Final Result [facility] [address] [place] [address] * T4, free (03/25/2024 9:48 AM GEOCHEMICAL LABORATORY TECHNICIAN) Pathologist [facility] Free T4 1.6 0.8 - 1.8 ng/dL [facility] 03/25/2024 9:48 AM GEOCHEMICAL LABORATORY TECHNICIAN 03/25/2024 9:49 AM GEOCHEMICAL LABORATORY TECHNICIAN Narrative [facility] - 03/27/2024 12:44 AM GEOCHEMICAL LABORATORY TECHNICIAN FASTING:YES Patient Report History copied from and originally reported to client [id number] in site (ST) Adrienne VALDEZ LAB BLOOD ORDERABLES Final Result [facility] [address] [place] [address] * (ABNORMAL) Comprehensive metabolic panel (03/25/2024 9:48 AM GEOCHEMICAL LABORATORY TECHNICIAN) Glucose 98 65 - 99 mg/dL [facility] Comment: Fasting reference interval BUN 23 7 - 25 mg/dL [facility] Creatinine 0.86 0.50 - 1.05 mg/dL [facility] eGFR 74 > OR = 60 mL/min/1.7 3m2 [facility] BUN/creat ratio SEE NOTE: 6 - 22 (calc) [facility] Comment: Not Reported: BUN and Creatinine are within reference range. Sodium 140 135 - 146 mmol/L [facility] Potassium, pl 3.9 3.5 - 5.3 mmol/L [facility] Chloride 103 98 - 110 mmol/L [facility] CO2 30 20 - 32 mmol/L [facility] Calcium 8.2(L) 8.6 - 10.4 mg/dL [facility] Protein, sr 6.4 6.1 - 8.1 g/dL [facility] Albumin 4.1 3.6 - 5.1 g/dL [facility] GLOBULIN 2.3 1.9 - 3.7 g/dL (calc) [facility] Alb/glob ratio 1.8 1.0 - 2.5 (calc) [facility] Bilirubin, total 0.4 0.2 - 1.2 mg/dL [facility] Alk phos 64 37 - 153 U/L [facility] AST 21 10 - 35 U/L [facility] ALT (SGPT) 12 6 - 29 U/L [facility] 03/25/2024 9:48 AM GEOCHEMICAL LABORATORY TECHNICIAN 03/25/2024 9:49 AM GEOCHEMICAL LABORATORY TECHNICIAN Narrative [facility] - 03/27/2024 12:44 AM GEOCHEMICAL LABORATORY TECHNICIAN FASTING:YES Patient Report History copied from and originally reported to client [id number] in site ([facility]) us Adrienne VALDEZ LAB BLOOD ORDERABLES Final Result [facility] [address] [facility] [place] [address] * Vitamin D 25 hydroxy (03/25/2024) SCRIBED 25-OH Vitamin D 58 30 - 100 ng/mL EXTERNAL LAB Blood 03/25/2024 us Mi Prescott REPLENISHER LAB BLOOD ORDERABLES Patricia l Result Performing Organization Address [facility] Co de Phone Number EXTERNAL LAB * TSH (03/25/2024) Pathologist [facility] Scribed TSH 2.07 0.40 - 4.50 mcU/mL EXTERNAL LAB Blood 03/25/2024 us Mi Prescott REPLENISHER LAB BLOOD ORDERABLES Patricia l Result Performing Organization Address [facility] Co de Phone Number EXTERNAL LAB * T4, free (03/25/2024) SCRIBED T4, Free 1.6 0.8 - 1.8 mcg/dL EXTERNAL LAB Blood 03/25/2024 us Mi Prescott REPLENISHER LAB BLOOD ORDERABLES Patricia l Result Performing Organization Address City/[facility]/ZIP Co de Phone Number EXTERNAL LAB * (ABNORMAL) Comprehensive metabolic panel (03/25/2024) SCRIBED Sodium 140 135 - 146 mmol/L EXTERNAL LAB SCRIBED Potassium 3.9 3.5 - 5.3 mmol/L EXTER[facility] LAB SCRIBED Chloride 103 98 - 110 mmol/L EXTERNAL LAB SCRIBED Carbon Dioxide 30 20 - 32 mmol/L EXTERNAL LAB SCRIBED Urea Nitrogen (BUN) 23 7 - 25 mg/dl EXTERNAL LAB SCRIBED Creatinine 0.86 0.50 - 1.05 mg/dl EXTERNAL LAB SCRIBED Glucose 98 65 - 99 mg/dl EXTERNAL LAB SCRIBED Calcium 8.2(A) 8.6 - 10.4 mg/dl EXTERNAL LAB SCRIBED Bilirubin 0.4 0.2 - 1.2 mg/dl EXTERNAL LAB SCRIBED Plasma Protein 6.4 6.1 - 8.1 g/dl EXTERNAL LAB SCRIBED Albumin 4.1 3.6 - 5.1 g/dl EXTERNAL LAB SCRIBED Alkaline Phosphatase 64 37 - 153 Units/L EXTERNAL LAB SCRIBED Alanine Transaminase (ALT) 12 6 - 29 Units/L EXTERNAL LAB SCRIBED Aspartate Transaminase (AST) 21 10 - 35 Units/L EXTERNAL LAB SCRIBED eGFR in NonAfrican Guinean 74 >=60 - NA EXTERNAL LAB Blood 03/25/2024 us Mi Prescott NP LAB BLOOD ORDERABLES Patricia live Result EXTERNAL LAB from Last [address] [facility] Care Teams Glaze Grinder Relationship Specialty Start Date End Date Adrienne Pereira PA [address] [place] [address] PCP - General Physician Target Network Analyst 01/07/24
--- OUTSIDE RECORDS SUMMARY | 2024-06-01 17:22 | XMS_ITS | Encounter Summary ---
Author Organization [facility] Address [address] [place] [address] Care Team Providers Care Grinding Operator Name Role Phone Ayad Garcia MD Primary Care Provider [phone] Reason for Visit * Reason Onset Date Comments SYMPTOMATIC HYPOCALCEMIA 09/18/[address] BECKFORD Encounter Details Date Type Department Care Team (Late st Contact Info) Description 09/18/2022 Telephone [facility]ly [facility] Admitting [address] [place] [address] [place] [address] [facility] [address] [place] [address] SYMPTOMATIC HYPOCALCEMIA (SPOKE TO DR. BECKFORD) Social History Tobacco Use Types Packs/Day Years Used Date Smoking Tobacco: Former Cigarettes 1 15 1 974 - 1988 Alcohol Use Standard Drinks/Week Comments Never 0 (1 standard drink = 0.6 oz pur e alcohol) Feeling Safe Answer Date Recorded Are you in a relationship wi th someone who hurts you emotionally and/or physically? No 09/18/2022 Food Insecurity Answer Date Recorded Social/Environmental Concerns No concerns Transportation Needs Answer Date Record ed Social/Environmental Concerns No concerns Housing Stability Answer Date Recorded Social/Environmental Concerns No concerns Utility Needs Answer Date Recorded Social/Environmental Concerns No concerns Comments Unknown Sex and Gender Information Value Date Recorded Sex Assigned at Female 03/20/2023 3:29 PM SALES AND MARKETING ASSISTANT Legal Sex Female 11:25 PM CDT Gender Identity Female 03/20/2023 3:29 PM SALES AND MARKETING ASSISTANT Sexual Orientation Straight 03/20/2023 3: 29 PM SALES AND MARKETING ASSISTANT COVID-19 Exposure Response Date Recorded In the last 10 days, have yo u been in contact with someone who was confirmed or suspected to have Coronavirus/COVID-19? No / Unsure 09/18/2022 6:29 AM CDT documented as of this encounter Plan of Treatment Not on file documented as of this encounter Visit Diagnoses Not on filedocumented in this encounter Care Teams Grinding Operator Relationship Specialty Start Date End Date Ayad Garcia MD [address] [place] [address] PCP - General Family Practice 09/18/22 documented as of this encounter
--- OUTSIDE RECORDS SUMMARY | 2024-06-01 17:22 | XMS_ITS | Encounter Summary ---
Author Organization [facility] Address [address] [place] [address] Care Team Providers Care Pharmaceutical Specialty Representative Name Role Phone Dm Villanueva MD Primary Care Provider [facility] Julio Giron MD Primary Care Provider [phone] Ayad Garcia MD Primary Care Provider [phone] Encounter Details Date Type Department Care Team (Late st Contact Info) Description 01/12/2017 Abstract [place] [address] , Generic ConversionMD Social History Tobacco Use Types Packs/Day Years Used Date Smoking Tobacco: Never Assessed Comments Unknown Sex and Gender Information Value Date Recorded Sex Assigned at Not on file Legal Sex Female 11:33 PM CDT Gender Identity Female 03/20/2021 5:50 PM MULTI SPINDLE OPERATOR Sexual Orientation Straight 03/20/2021 5: 50 PM MULTI SPINDLE OPERATOR documented as of this encounter Plan of Treatment Not on file documented as of this encounter Visit Diagnoses Not on filedocumented in this encounter Care Teams Pharmaceutical Specialty Representative Relationship Specialty Start Date End Date Dm Villanueva MD PCP - General INTERNAL MEDICINE 01/29/18 12/25/20 Julio Giron MD PCP - General INTERNAL MEDICINE 12/26/20 10/08/21 Ayad Garcia MD [address] [place] [address] PCP - General FAMILY PRACTICE 10/09/21 documented as of this encounter
--- OUTSIDE RECORDS SUMMARY | 2024-06-01 17:22 | XMS_ITS | Encounter Summary ---
Author Organization [facility] Address [facility] [place] [address] Care Team Providers Care Planning Associate Name Role Phone Dm Villanueva MD Primary Care Provider Unava Julio Farmer MD Primary Care Provider [phone] Ayad Garcia MD Primary Care Provider [phone] Encounter Details Date Type Department Care Team (Late st Contact Info) Description 08/22/2019 MyChart Message Enc [facility] [address] [place], [place] [id number] [place] [address] [place], [place] [phone] RE: Test Results Social History Tobacco Use Types Packs/Day Years Used Date Smoking Tobacco: Former Smokeless Tobacco: Never Alcohol Use Standard Drinks/Week Comments No 0 (1 standard drink = 0.6 oz pur e alcohol) AUDIT-C Answer Date Recorded Frequency of Alcohol Consumption Never 09/30/2018 Average Number of Drinks Not on file 019 Frequency of Binge Drinking Not on file 09/09 Comments Unknown Sex and Gender Information Value Date Recorded Sex Assigned at Not on file Legal Sex Female 11:33 PM CDT Gender Identity Female 03/20/2021 5:50 PM THERMO PROCESSOR Sexual Orientation Straight 03/20/2021 5: 50 PM THERMO PROCESSOR COVID-19 Exposure Response Date Recorded In the last month, have you been in contact with someone who was confirmed or suspected to have Coronavirus / COVID-19? No / Unsure 08/13/2019 7:48 AM CDT documented as of this encounter Plan of Treatment Not on file documented as of this encounter Visit Diagnoses Not on filedocumented in this encounter Care Teams Planning Associate Relationship Specialty Start Date End Date Dm Villanueva MD PCP - General INTERNAL MEDICINE 01/29/18 12/25/20 Julio Giron MD PCP - General INTERNAL MEDICINE 12/26/20 10/08/21 Ayad Garcia MD [address] [place] [address] PCP - General FAMILY PRACTICE 10/09/21 documented as of this encounter
--- OUTSIDE RECORDS SUMMARY | 2024-06-01 17:22 | XMS_ITS | Clinical Summary ---
Author Organization [facility] Address [address] [place] [address] Phone Care Team Providers Care Health And Social Care Teacher Name Role Phone Ayad Garcia MD Primary Care Provider [phone] Allergies No known active allergies Medications folic acid (FOLVITE) 1 mg tablet Take 1 mg by mouth daily. Active pantoprazole (PROTONIX) [address] for susp in Packet 40 mg daily. Active furosemide (LASIX) 20 mg tablet Take 20 mg by mouth daily. Active loratadine-pseu doephedrine (CLARITIN-D) 10-240 mg Extended Release 24 hour tablet Take 1 Tablet by mouth daily. Active albuterol sulfate HFA 90 mcg/actuation aerosol inhaler Take 2 Puffs by inhalation every 6 hours as needed for Shortness of Breath. Active ALPRAZolam (XANAX) 1 mg tablet Take 1 mg by mouth 2 times daily as needed for Anxiety. Active ondansetron (ZOFRAN) 4 mg Tablet Take 4 mg by mouth every 6 hours as needed for Nausea/Emesis. Active HYDROcodone-jennifer taminophen (NORCO) 10-325 mg Tablet Take 1 Tablet by mouth every 8 hours as needed for Pain, Moderate. Active rOPINIRole (REQUIP) 4 mg Tablet Take 4 mg by mouth 3 times daily. Active tiZANidine (ZANAFLEX) 4 mg Capsule Take 4 mg by mouth 2 times daily as needed for Spasm. Active levothyroxine 125 mcg tablet Starting 09/22/22, Take 1 Tablet (125 mcg) by mouth daily in the morning. 30 Tablet 3 09/21/2022 5:03 PM CDT 3 Active Additional Information Patient taking differently: 137 mcgOral DAILY EARLY, Reported on 03/27/2023 calcitRIOL (ROCALTROL) 0.25 mcg capsule Starting 09/22/22, Take 1 Capsule (0.25 mcg) by mouth daily. 30 Capsule 2 09/21/2022 5:03 PM CDT 3 Active calcium as carbonate (TUMS) 500 mg (200 mg elemental) Tablet, Chewable Chew and Swallow 3 Tablets (600 mg) by mouth 3 times daily with meals. 150 Tablet 3 09/21/2022 5:03 PM CDT 3 Active ergocalciferol (VITAMIN D2) 50,000 unit capsule Starting 09/26/22, Take 1 Capsule (50,000 Units) by mouth every 7 days. 4 Capsule 3 09/21/2022 5:03 PM CDT 3 Active naloxone (NARCAN) 4 mg/spray [place], Non-Aerosol EMERGENCY USE ONLY: Administer 1 spray (4 mg) in one nostril one time. May repeat in alternating nostrils every 2-3 minutes until responsive or EMS arrives. 2 Each 3 3 Active Active Problems Problem Noted Date Diagnosed Date Hypocalcemia 09/18/2022 Gastroesophageal reflux disease without esophagi tis 09/18/2022 Asthma 09/18/2022 Hyperphosphatemia 09/18/2022 Hx of thyroidectomy 09/18/2022 Hx of gastric bypass 09/18/2022 Chronic pain 09/18/2022 Polyarthritis 09/18/2022 Anxiety 09/18/2022 Other specified hypothyroidism 09/18/2022 Encounters Date Type Department Care Team Description 04/01/2024 External Device Data [facility] Provider, Abstract 04/01/2024 External Device Data [facility] Provider, Abstract 03/25/2024 External Device Data [facility] Provider, Abstract 03/17/2024 External Device Data [facility] Provider, Abstract from Last 3 Months Family History Medical History Relation Name Comments Heart Disease Father Hypertension Mother Relation Name Status Comments Father Mother Social History Tobacco Use Types Packs/Day Years Used Date Smoking Tobacco: Former Cigarettes 1 15 1 974 - 1988 Tobacco Cessation:Counseling Given: Not Answered Alcohol Use Standard Drinks/Week Comments Never 0 [...] Sex Assigned at Female 03/20/2023 3:29 PM STRATEGIC DEBRIEFING OFFICER Legal Sex Female 11:25 PM CDT Gender Identity Female 03/20/2023 3:29 PM STRATEGIC DEBRIEFING OFFICER Sexual Orientation Straight 03/20/2023 3: 29 PM STRATEGIC DEBRIEFING OFFICER Last Filed Vital Signs Vital Sign Reading Time Taken Comments Blood Pressure 131/69 03/27/2023 2:50 PM STRATEGIC DEBRIEFING OFFICER Pulse 90 03/27/2023 2:50 PM STRATEGIC DEBRIEFING OFFICER Temperature 36 C (96.8 F) 03/27/2023 2:50 PM STRATEGIC DEBRIEFING OFFICER Respiratory Rate 10 03/27/2023 2:50 PM STRATEGIC DEBRIEFING OFFICER Oxygen Saturation 98% 03/27/2023 2:50 PM STRATEGIC DEBRIEFING OFFICER Inhaled Oxygen Concentration - - Weight 94.3 kg (208 lb) 03/27/2023 2:50 PM STRATEGIC DEBRIEFING OFFICER Height 149.9 cm (4' 11 ) 09/18/2022 6:00 AM CDT Body Mass Index 42.01 09/18/2022 6:00 AM CDT Plan of Treatment Health Maintenance Due Date Last Done Comments PNEUMOCOCCAL VACCINE 50+ YEA RS (1 of 2 - PCV) 02/14/1976 COLORECTAL SCREENING 2002 Colorectal Cancer Screening 2002 FIT-DNA Q 3 years 2002 FIT/FOBT Q 1 year 2002 Flex Sig/CT Colonography Q 5 years 2002 RSV VACCINE (60+ or ) (1 - Risk 60-74 years 1-dose series) 2017 ZOSTER VACCINE (2 of 2) 02/23/2021 12/29/2020 BREAST CANCER SCREENING 06/13/2023 06/13/19 23, 05/19/2021, 09/08/2018 INFLUENZA VACCINE (#1) 2023 , 12/03/2018, 12/03/2018 COVID-19 Vaccine ( season) 11/10/202304/2020, 07/10/2020 DTAP/TDAP/TD VACCINES (2 - T d or Tdap) 12/05/2028 12/05/2018 OSTEOPOROSIS SCREENING Completed 05/19/2021 Insurance AETNA PPO [facility] RX AETNA Medicare Part D RX [employer] (INTERNAL) [facility] [employer] PPO MCR Advance Directives For more information, please contact: [phone] * Full Code (Latest Code Status on File) Date Activated Date Inactivated Comments 09/18/2022 8:25 AM 09/21/2022 9:31 PM Care Teams Health And Social Care Teacher Relationship Specialty Start Date End Date Ayad Garcia MD [address] [place] [id number] PCP - General Family Practice 09/18/22
--- OUTSIDE RECORDS SUMMARY | 2024-06-01 17:22 | XMS_ITS | Clinical Summary ---
Author Organization [facility] at [facility] Medical Office Building Address [address] [place] [address] Care Team Providers Care Passenger Car Upholsterer Apprentice Name Role Phone Adrienne Pereira Primary Care Provider [phone] Allergies Active Allergy Reactions Criticality Noted Date [...] 2 sprays into affected nostril(s) daily 09/16/19 Discontin ued(Alter anne therapy) empagliflozin (JARDIANCE) 10 mg tabletIndications: Diastolic dysfunction without heart failure Take 1 tablet (10 mg total) by mouth daily 14 tablet 11/28/19 24 Discontin ued(Alter anne therapy) rosuvastatin (CRESTOR) 5 mg tablet Take 1 tablet (5 mg total) by mouth daily 30 tablet 11 01/02/20 24 025 Discontin ued(Thera py completed ) cefdinir (OMNICEF) 300 mg capsule 01/17/20 Discontin ued(Alter anne therapy) fluticasone furoate-vilanteroL (Breo Ellipta) 100-25 mcg/dose diskus inhaler Inhale 1 puff daily Rinse mouth with water after use. Do not swallow. 3 each 11 04/16/19 Discontin ued(Alter anne therapy) ipratropium (ATROVENT) 42 mcg (0.06 %) nasal spray Administer 2 sprays into each nostril 4 (four) times a day 60 mL 11 04/16/19 Discontin ued(Alter anne therapy) calcitRIOL (ROCALTROL) 0.5 mcg capsuleIndications :hypocalcemia Take 1 capsule (0.5 mcg total) by mouth 2 (two) times a day 180 capsule 3 04/21/19 025 Discontin ued(Reord er) fluconazole (DIFLUCAN) 150 mg tablet 04/27/19 025 Discontin ued(Thera py completed ) fluocinolone (DERMA-SMOOTHE) 0.01 % external oil 02/14/20 025 Discontin ued(Thera py completed ) Active Problems Problem Noted Date Diagnosed Date Iron deficiency anemia 05/10/2023 Shortness of breath 03/29/2023 Postoperative hypothyroidism 03/19/2023 Assessment & Plan (05/05/2024 4:03 PM TANK DRIVER): Chronic problems. Currently taking levothyroxine 137mcg daily. [...] hypo/hyperthyroidism. Assessment & Plan (03/19/2023 12:54 PM TANK DRIVER): Patient currently on levothyroxine 112 mcg oral daily Recheck thyroid function test today and further plans based on it Hypocalcemia 03/19/2023 Assessment & Plan (05/05/2024 4:04 PM TANK DRIVER): Chronic problem. Currently taking Calcitrol 0.5mg daily as well as Tums approx 10/day (500 [id number] tabs). Was supposed to increase calcitriol to bid but states it was >$300. Looked up on GoodRx & can get 50mcg bid for $36.75/mo. printed out coupon for her. She will start today. Resent script to [facility]. Will repeat labs mid May at [facility] at her PCP office. Discussed red flags for ER eval. DEXA completed 06/20/23: normal bone density. Assessment & Plan (07/04/2023 [...] increase your PTH level. I suggested an [id number] Magnesium supplement to take in the evening with medications to see if it would help with leg pain & lower PTH level. Assessment & Plan (03/19/2023 12:55 PM TANK DRIVER): Hypocalcemia, poor absorption, vitamin-D deficiency Continue current calcitriol and calcium supplementation Recheck levels today and further plans based on it Vitamin D deficiency 03/19/2023 Assessment & Plan (05/05/2024 4:08 PM TANK DRIVER): Chronic problem. Currently taking ergocalciferol 50,000IU weekly. [...] time. Assessment & Plan (03/19/2023 12:54 PM TANK DRIVER): Patient currently on replacement therapy Recheck levels today and further plans based on it Syncope and collapse 12/07/2022 Chest pain 12/07/2022 Dysphonia 07/11/2021 Chronic cough 07/11/2021 Laryngopharyngeal reflux (LPR) 07/11/2021 Encounters Date Type Department Care Team Description 06/01/2024 Results Follow-Up [facility] Medical [facility] Diabetes and Endocrinology [address] [place] [phone] Mi Prescott NP 05/29/2024 1:20 PM CDT - 05/29/2024 11:59 PM CDT Hospital Encounter [facility] Respiratory [address] [place] [address] SOB (shortness of breath) Discharge Disposition: Discharge to home or self care 05/26/2024 Telephone [facility] General Neurology [address] [facility] Advanced [facility] 6th [place] [address] [place] [address] Snehal Schroeder RN 05/19/2024 Telephone [facility] Scheduling [address] [place] [address] Kristal Caldera CMA 05/11/2024 11:15 AM TANK DRIVER Lab [facility] Advanced Medicine (CAM) [address] [place] [phone] Pain in right foot 05/11/2024 8:30 AM TANK DRIVER Office Visit [facility] General Neurology [address] [facility] 6[address] [place] [address] [place] [address] Byron Burgess Jr., MD Imbalance (Primary Dx); Pain in right foot; Abnormal response to nerve stimulation; Memory loss; Obesity (BMI 30.0-34.9) 05/11/2024 Results Follow-Up [facility] General Neurology [address] [facility] 6th Floor [address] [place] [phone] Byron Burgess Jr., MD 05/06/2024 Orders Only [facility] Hematology [address] [facility] Floor 6 [place] [address] Noelle Stevens 05/05/2024 2:00 PM TANK DRIVER Office Visit [facility] Medical Group Diabetes and Endocrinology [address] [place] [phone] Mi Prescott NP Hypocalcemia (Primary Dx); Postoperative hypothyroidism; Vitamin D deficiency 04/21/2024 Orders Only [facility] Medical Group Diabetes and Endocrinology [address] [place] [phone] Mi Prescott NP Hypocalcemia 04/16/2024 9:25 AM TANK DRIVER - 04/16/2024 11:59 PM TANK DRIVER Hospital Encounter [facility] Diagnostic Imaging [address] [place] [address] SOB (shortness of breath) Discharge Disposition: Discharge to home or self care 04/16/2024 8:30 AM TANK DRIVER Office Visit [facility] Pulmonology [address] [place] [address] [address] [place] [address] Parish Galarza MD Obesity, unspecified class, unspecified obesity type, unspecified whether serious comorbidity present (Primary Dx); Cough, unspecified type; SOB (shortness of breath); Nicotine dependence, cigarettes, in remission; Snoring 04/16/2024 Telephone [facility] Pulmonology [address] [place] [address] [address] [place] [address] Parish Galarza MD 04/02/[address] [facility] Group Diabetes and Endocrinology [address] [place] [phone] Mi Prescott NP 03/25/2024 1:00 PM TANK DRIVER Office Visit [facility] Orthopaedic Surgery [address] [facility] Medical Office Building [address] [place] [address] Maycol Koehler NP Right foot pain (Primary Dx); Pain in right foot; Abnormal response to nerve stimulation 03/25/2024 12:17 PM TANK DRIVER - 03/25/2024 11:59 PM TANK DRIVER Hospital Encounter [facility] [address] [facility] [address] [place] [address] Right foot pain Discharge Disposition: Discharge to home or self care 03/25/2024 Orders Only [facility] INTERFACE [address] Adrienne Pereira PA 03/09/[address] [facility] Diabetes and Endocrinology [address] [place] [address] Mi Prescott NP Vitamin D deficiency (Primary Dx); Hypocalcemia; Acquired hypothyroidism from Last 3 Months Immunizations Immunization Administration Dates Next Due Influenza, Quadrivalent, Yany l Culture-based MDCK, Preservative Free, Antibiotic Free, Intramuscular 12/04/2019 Influenza, Quadrivalent, Rec ombinant, Egg Free, Preservative Free, Intramuscular 12/29/2020 Influenza, Quadrivalent, Split, Intramuscular Influenza, Trivalent, Cell C ulture-based MDCK, Preservative Free, Antibiotic Free, Intramuscular 12/04/2019 Influenza, Unspecified 12/29/2020,12/04/2019 Tdap 12/05/2018 ZOSTER Recombinant 12/29/2020 Surgical History Surgery Date Site/Laterality Comments APPENDECTOMY TONSILLECTOMY AND ADENOIDECTOMY CHOLECYSTECTOMY GASTRIC BYPASS BREAST BIOPSY HYSTERECTOMY 2003 BARIATRIC SURGERY 2006 TOTAL THYROIDECTOMY 03/11/2006 - 03/10/2007 R sided 2005, L sided 2006 Medical History Medical History Date Comments Allergic rhinitis Anxiety Skin cancer Cataract Peptic ulcer Chronic recurrent bronchiolitis (HCC) GERD (gastroesophageal reflux disease) Sinusitis Anemia 2014 Arthritis Asthma Osteoporosis Chronic bronchitis (HCC) 2022 Heart disease 2021 Hypothyroidism Family History Medical History Relation Name Comments Hypertension Daughter Alcohol abuse Father LEONID Alzheimer's disease Father LEONID Arthritis Father LEONID Cancer Father LEONID Dementia Father LEONID Depression Father LEONID Hearing loss Father LEONID Heart attack Father LEONID Heart disease Father LEONID Hypertension Father LEONID Memory loss Father LEONID Rashes / Skin problems Father LEONID Vision loss Father LEONID ESKD Requiring Dialysis Half-Sister 2 Anemia Mother Wendel Arthritis Mother Wendel Asthma Mother Wendel Bleeding Disorder Mother Sona COPD Mother Wendel Cancer Mother Wendel Clotting disorder Mother Sona Dementia Mother Sona Depression Mother Wendel Diabetes Mother Wendel Early Mother Wendel Hearing loss Mother Wendel Heart attack Mother Sona Hyperlipidemia Mother Wendel Hypertension Mother Sona Kidney disease Mother Sona Lung cancer Mother Sona Mental illness Mother Sona Obesity Mother Sona Rashes / Skin problems Mother Wendel Relation Name Status Comments Daughter Alive Father LEONID Half-Sister 1 Alive Half-Sister 2 Alive Mother Sona Social History Tobacco Use Types Packs/Day Years [...] on file Legal Sex Female 11:54 PM TANK DRIVER Gender Identity Female 01/11/2024 3:47 AM CDT Sexual Orientation Straight 01/11/2024 3: 47 AM CDT Obstetrics History Last Filed Vital Signs Vital Sign Reading Time Taken Comments Blood Pressure 142/82 05/11/2024 8:19 AM TANK DRIVER Pulse 66 05/11/2024 8:19 AM TANK DRIVER Temperature 36.4 C (97.5 F) 04/16/2024 8:33 AM TANK DRIVER Respiratory Rate 18 05/05/2024 1:51 PM TANK DRIVER Oxygen Saturation 98% 04/16/2024 8:33 AM TANK DRIVER Inhaled Oxygen Concentration - - Weight 95.7 kg (211 lb) 05/11/2024 8:19 AM TANK DRIVER Height 149.9 cm (4' 11 ) 05/11/2024 8:19 AM TANK DRIVER Body Mass Index 42.62 05/11/2024 8:19 AM TANK DRIVER Plan of Treatment Health Maintenance Due Date Last Done Comments Colon Cancer Screening-Colonoscopy 1955 Depression Screening 1955 Hepatitis C Screening 1957 Hepatitis B Screening 1975 Pneumococcal vaccine 65+ (1 of 2 - PCV) 02/14/1976 Zoster Vaccine (2 of 2) 02/23/2021 12/29/2020 Well Visit 65+ 2022 Covid-19 Vaccine (3 - 2023-2 5 season) 2023 02/09/2021, 07/10/2020 Influenza Vaccine (#1) 2023 , 12/29/2020, 12/04/2019, Additional history exists Breast Cancer Screening-Mammogram 06/19/2024 06/20/2023, 06/20/2023, 06/12/2022, Additional history exists Fall Risk Assessment 07/03/2024 07/04/2023 Osteoporosis Screening-Bone Density Scan 06/19/2025 06/20/2023, 05/19/2021 DTaP/Tdap/Td Vaccine (2 - Td or Tdap) 12/05/2028 12/05/2018 Procedures Procedure Name Priority Date/Time Associated Diagnosis Comments PULMONARY FUNCTION TEST (PFT) Routine 05/29/2024 2:35 PM CDT SOB (shortness of breath) PTH Routine 05/26/2024 9:52 AM CDT BASIC METABOLIC PANEL Routine 05/26/2024 9:52 AM CDT COPY(IES) SENT TO: Routine 05/26/2024 9: 52 AM CDT CALCIUM, IONIZED Routine 05/26/2024 9:52 AM CDT Hypocalcemia DERRICK QUALITATIVE WITH REFLEX TO DERRICK QUANTITATIVE Routine 05/11/2024 10:13 AM TANK DRIVER Pain in right foot ANTI-DOUBLE STRANDED DNA ANTIBODIES Routine 05/11/2024 10:13 AM TANK DRIVER Pain in right foot ASHLYN ANTIBODY EVALUATION WITH REFLEX Routine 05/11/2024 10:13 AM TANK DRIVER Pain in right foot XR CHEST PA LATERAL 2 VIEWS Schedule Routine, Read Routine (OP Routine) 04/16/2024 9:42 AM TANK DRIVER SOB (shortness of breath) XR FOOT RIGHT 3 OR MORE VIEWS Schedule Routine, Read Routine (OP Routine) 03/25/2024 1:16 PM TANK DRIVER Right foot pain COPY(IES) SENT TO: Routine 03/25/2024 9: 52 AM TANK DRIVER CBC WITH AUTO DIFFERENTIAL Routine 03/25/2024 9:52 AM TANK DRIVER Iron deficiency anemia, unspecified iron deficiency anemia type FERRITIN Routine 03/25/2024 9:52 AM TANK DRIVER Iron deficiency anemia, unspecified iron deficiency anemia type IRON PROFILE W/ IBC Routine 03/25/2024 9 :52 AM TANK DRIVER Iron deficiency anemia, unspecified iron deficiency anemia type VITAMIN D 25 HYDROXY Routine 03/25/2024 9:48 AM TANK DRIVER TSH W/REFL FT4 Routine 03/25/2024 9:48 AM TANK DRIVER T4, FREE Routine 03/25/2024 9:48 AM TANK DRIVER ANACHOICE(R) SPECIFIC AB CASCADING REFLEX Routine 03/25/2024 9:48 AM TANK DRIVER CYCLIC CITRUL PEPTIDE ANTIBODY, IGG Routine 03/25/2024 9:48 AM TANK DRIVER CRP, HIGH SENSITIVITY Routine 03/25/2024 9:48 AM TANK DRIVER RHEUMATOID FACTOR Routine 03/25/2024 9:4 8 AM TANK DRIVER ERYTHROCYTE SEDIMENTATION RATE Routine 03/25/2024 9:48 AM TANK DRIVER COMPREHENSIVE METABOLIC PANEL Routine 03/25/2024 9:48 AM TANK DRIVER T4, FREE Routine 03/25/2024 Acquired hypothyroidism TSH Routine 03/25/2024 Acquired hypothyroidism VITAMIN D 25 HYDROXY Routine 03/25/2024 Vitamin D deficiency COMPREHENSIVE METABOLIC PANEL Routine 03/25/2024 Hypocalcemia from Last 3 Months Results * COPY(IES) SENT TO: (05/26/2024 9:52 AM CDT) COPY(IES) SENT TO: RAVINDRA Comment: [facility] [address] [place] [address] 05/26/2024 9:52 AM CDT 05/26/2024 9:56 AM CDT Narrative [facility] - 05/27/2024 4:39 PM CDT FASTING:YES FASTING: YES us Mi Prescott SPONGE PRESS OPERATOR LAB BLOOD ORDERABLES Patricia l Result Performing Organization Address City/[facility] Co de Phone Number [facility] * (ABNORMAL) Calcium, ionized (05/26/2024 9:52 AM CDT) Calcium, Ionized 4.3(L) 4.7 - 5.5 mg/dL [facility] Comment: Your request to have a duplicate copy faxed has been acknowledged. Queued to: [id number] Blood 05/26/2024 9:52 AM CDT 05/26/2024 9:56 AM CDT Narrative [facility] - 05/27/2024 4:39 PM CDT FASTING:YES FASTING: YES us Mi Prescott SPONGE PRESS OPERATOR LAB BLOOD ORDERABLES Patricia l Result Performing Organization Address [facility] de Phone Number [facility] [address] [place] [address] * (ABNORMAL) PTH (05/26/2024 9:52 AM CDT) Parathyroid hormone, intact 15(L) 16 - 77 pg/mL [facility] Comment: Interpretive Guide Intact PTH Calcium ------- Normal Parathyroid Normal Normal Hypoparathyroidism Low or Low Normal Low Hyperparathyroidism Primary Normal or High High Secondary High Normal or Low Tertiary High High Non-Parathyroid Hypercalcemia Low or Low Normal High 05/26/2024 9:52 AM CDT 05/26/2024 9:56 AM CDT Narrative [facility] - 05/27/2024 4:39 PM CDT FASTING:YES FASTING: YES us Mi Prescott SPONGE PRESS OPERATOR LAB BLOOD ORDERABLES Particia l Result Performing Organization Address [facility] Co de Phone Number [facility] [address] [facility] [place] [address] * (ABNORMAL) Basic metabolic panel (05/26/2024 9:52 [...] AM CDT 05/26/2024 9:56 AM CDT Narrative [facility] - 05/27/2024 4:39 PM CDT FASTING:YES FASTING: YES us Mi Prescott SPONGE PRESS OPERATOR LAB BLOOD ORDERABLES Patricia l Result [facility] [address] [place] [address] * DERRICK ab ql w/rflx to DERRICK qn (05/11/2024 10:13 AM TANK DRIVER) DERRICK Negative Comment: Interpretive Data Normal range [...] on 2019. Blood 05/11/2024 10:1 3 AM TANK DRIVER 05/11/2024 10:47 AM TANK DRIVER Byron Burgess Jr., MD LAB BLOOD ORDERABL ES Final Result Performing Organization Address [facility] Phone Number [facility] [place] [address] * Anti-double stranded DNA abs (05/11/2024 10:13 AM TANK DRIVER) dsDNA Ab <1.0 <=4.0 IUnits/mL Comment: Interpretive Data Negative: < or = 4 IUnits/mL Indeterminate: 5 - 9 IUnits/mL Positive: > or = 10 IUnits/mL Current interpretive data was last revised on 2016. Blood 05/11/2024 10:1 3 AM TANK DRIVER 05/11/2024 10:47 AM TANK DRIVER Byron Burgess Jr., MD LAB BLOOD ORDERABL ES Final Result Performing Organization Address [facility] de Phone Number [facility] [place] [address] * ASHLYN ab eval w/reflex (05/11/2024 10:13 AM TANK DRIVER) ASHLYN ab Negative Negative Comment: Interpretive Data Positive Screens will be reflexed to specific testing for Antibodies against the following antigens: Vielka-1 Ab, FERRYBOAT OPERATOR HELPER Ab, Scl-70 Ab, Greene Ab, SS-A/Ro Ab, and SS- B/La Ab. Further testing for dsDNA, Centromere, or Ribosomal P antibodies is suggested in patient with a positive screen and negative specific antibodies. Current interpretive data was last revised on 2022. Blood 05/11/2024 10:1 3 AM TANK DRIVER 05/11/2024 10:47 AM TANK DRIVER Byron Burgess Jr., MD LAB BLOOD ORDERABL ES Final Result [facility] Department [place] [address] * XR Chest Pa Lateral 2 Views (04/16/2024 9:42 AM TANK DRIVER) Anatomical Region Laterality Modality Body, Chest N/A Computed Radiogr aphy 04/20/2024 11:2 2 AM TANK DRIVER Narrative 04/20/2024 11:23 AM TANK DRIVER EXAM DESCRIPTION: XR CHEST PA LATERAL 2 [...] Angel Villanueva M.D. AM T: Report ID: [id number] Reading Location: [id number] Procedure Note Angel Villanueva MD - 04/20/2024 [...] Angel Villanueva M.D. AM T: Report ID: [id number] Reading Location: [id number] Parish Galarza MD IMG XR PROCEDURES Final Resu lt * XR Foot Right 3 or More Views (03/25/2024 1:16 PM TANK DRIVER) Anatomical Region Laterality Modality Lower Extremities, Foot Right Computed Radiography 03/25/2024 1:30 PM TANK DRIVER Impressions 03/25/2024 1:30 PM TANK DRIVER 1. Mild distal right Achilles tendinopathy and small heel spur. 2. Mild right midfoot osteoarthritis. Electronically signed by: Ifeanyi Lewis M.D. Narrative 03/25/2024 1:30 PM TANK DRIVER EXAMINATION: XR FOOT RIGHT 3 OR MORE [...] * COPY(IES) SENT TO: (03/25/2024 9:52 AM TANK DRIVER) Pathologist [facility] COPY(IES) SENT TO: RAVINDRA Comment: [facility] [address] [place] [address] 03/25/2024 9:52 AM TANK DRIVER 03/25/2024 9:52 AM TANK DRIVER Narrative [facility] - 03/26/2024 6:49 AM TANK DRIVER FASTING:YES FASTING: YES Rubi Schofield SPONGE PRESS OPERATOR LAB BLOOD ORDERABLES Final Result [facility] * Iron profile w/ IBC (03/25/2024 9:52 AM TANK DRIVER) Pathologist [facility] Iron 96 45 - 160 mcg/dL [facility] TIBC 371 250 - 450 mcg/dL (calc) [facility] Iron saturation 26 16 - 45 % (calc) [facility] Blood 03/25/2024 9:52 AM TANK DRIVER 03/25/2024 9:52 AM TANK DRIVER Narrative [facility] - 03/26/2024 6:49 AM TANK DRIVER FASTING:YES FASTING: YES Rubi Schofield SPONGE PRESS OPERATOR LAB BLOOD ORDERABLES Final Result Performing Organization Address City/[facility]/ZIP Co de Phone Number [facility] [address] [place] [address] * (ABNORMAL) CBC with auto differential (03/25/2024 9:52 AM TANK DRIVER) Pathologist [facility] WBC 4.2 3.8 - 10.8 Thousand/u L [...] [facility] Blood 03/25/2024 9:52 AM TANK DRIVER 03/25/2024 9:52 AM TANK DRIVER Narrative [facility] - 03/26/2024 6:49 AM TANK DRIVER FASTING:YES FASTING: YES Rubi Schofield SPONGE PRESS OPERATOR LAB BLOOD ORDERABLES Final Result [facility] [address] [address] * Ferritin (03/25/2024 9:52 AM TANK DRIVER) Ferritin 20 16 - 288 ng/mL [facility] Blood 03/25/2024 9:52 AM TANK DRIVER 03/25/2024 9:52 AM TANK DRIVER Narrative [facility] - 03/26/2024 6:49 AM TANK DRIVER FASTING:YES FASTING: YES Rubi Schofield SPONGE PRESS OPERATOR LAB BLOOD ORDERABLES Final Result Performing Organization Address City/[facility]/ZIP Co de Phone Number [facility] [address] [place] [address] * TSH W/REFL FT4 (03/25/2024 9:48 AM TANK DRIVER) TSH 2.07 0.40 - 4.50 mIU/L [facility] 03/25/2024 9:48 AM TANK DRIVER 03/25/2024 9:49 AM TANK DRIVER Narrative [facility] - 03/27/2024 12:44 AM TANK DRIVER FASTING:YES Patient Report History copied from and originally reported to client [id number] in site ([facility]) Adrienne Pereira PA LAB BLOOD ORDERABLES Final Result Performing Organization Address [facility] Co de Phone Number [facility] [address] [place] [address] * ANAChoice (R) specific Ab cascading reflex (03/25/2024 9:48 AM TANK DRIVER) Pathologist [facility] DERRICK, qual NEGATIVE NEGATIVE [facility] Comment: A negative DERRICK Multiplex indicates the absence of detectable antibodies to component analytes consisting of double stranded DNA (dsDNA), chromatin, ribonucleoprotein (FERRYBOAT OPERATOR HELPER), Greene/FERRYBOAT OPERATOR HELPER (Sm/FERRYBOAT OPERATOR HELPER), Greene (Sm), SS-A, SS-B, Vielka-1, centromere B, Scl-70 and ribosomal P. A negative result should be interpreted in the context of the clinical and laboratory findings and does not rule out autoimmune disease characterized by other autoantibody specificities such as rheumatoid arthritis, autoimmune hepatitis, primary biliary cirrhosis, autoimmune thyroiditis, Melbourne's disease, pernicious anemia, autoimmune neuropathies, vasculitis, celiac disease, and bullous disease. For additional information, please refer to http://education.Hitch Radio/faq/VRI898 (This link is being provided for informational/ educational purposes only.) 03/25/2024 9:48 AM TANK DRIVER 03/25/2024 9:49 AM TANK DRIVER Narrative [facility] - 03/27/2024 12:44 AM TANK DRIVER FASTING:YES Patient Report History copied from and originally reported to client [id number] in site ([facility]) Adrienne VALDEZ LAB BLOOD ORDERABLES Final Result Performing Organization Address [facility]/ZIP Co de Phone Number [facility] [address] [place] [address] * Cyclic citrul peptide antibody, IgG (03/25/2024 9:48 AM TANK DRIVER) Pathologist [facility] Cyclic citrullinated peptide ab, IgG <16 UNITS [facility] Comment: Reference Range Negative: <20 Weak Positive: 20-39 Moderate Positive: 40-59 Strong Positive: >59 03/25/2024 9:48 AM TANK DRIVER 03/25/2024 9:49 AM TANK DRIVER Narrative [facility] - 03/27/2024 12:44 AM TANK DRIVER FASTING:YES Patient Report History copied from and originally reported to client [id number] in site ([facility]) Adrienne VALDEZ LAB BLOOD ORDERABLES Final Result Performing Organization Address [facility] de Phone Number [facility] [address] [place] [address] * Vitamin D 25 hydroxy (03/25/2024 9:48 AM TANK DRIVER) Pathologist [facility] Vitamin D 25-OH 58 30 - 100 ng/mL [facility] Comment: Vitamin D Status 25-OH Vitamin D: Deficiency: <20 ng/mL Insufficiency: 20 - 29 ng/mL Optimal: > or = 30 ng/mL For 25-OH Vitamin D testing on patients on D2-supplementation and patients for whom quantitation of D2 and D3 fractions is required, the Quest[facility]ure[facility](TM) 25-OH VIT D, (D2,D3), LC/MS/MS is recommended: order code 07738 (patients >2yrs). Comment [facility] Comment: See Note 1 Note 1 For additional information, please refer to http://education.Shopgate.MailMeNetwork/faq/NIC290 (This link is being provided for informational/ educational purposes only.) 03/25/2024 9:48 AM TANK DRIVER 03/25/2024 9:49 AM TANK DRIVER Narrative [facility] - 03/27/2024 12:44 AM TANK DRIVER FASTING:YES Patient Report History copied from and originally reported to client [id number] in site ([facility]) Adrienne VALDEZ LAB BLOOD ORDERABLES Final Result Performing Organization Address [facility]/ZIP Co de Phone Number [facility] [address] [place] [address] * Erythrocyte sedimentation rate (03/25/2024 9:48 AM TANK DRIVER) Erythrocyte sedimentation rate 9 < OR = 30 mm/h [facility] 03/25/2024 9:48 AM TANK DRIVER 03/25/2024 9:49 AM TANK DRIVER Narrative [facility] - 03/27/2024 12:44 AM TANK DRIVER FASTING:YES Patient Report History copied from and originally reported to client [id number] in site ([facility]) Adrienne VALDEZ LAB BLOOD ORDERABLES Final Result Performing Organization Address [facility] Co de Phone Number [facility] [address] [place] [address] * Rheumatoid factor (03/25/2024 9:48 AM TANK DRIVER) Rheumatoid factor, quant <10 <14 IU/mL [facility] 03/25/2024 9:48 AM TANK DRIVER 03/25/2024 9:49 AM TANK DRIVER Narrative [facility] - 03/27/2024 12:44 AM TANK DRIVER FASTING:YES Patient Report History copied from and originally reported to client [id number] in site ([facility]) Adrienne VALDEZ LAB BLOOD ORDERABLES Final Result Performing Organization Address City/[facility]/ZIP Co de Phone Number [facility] [address] [place] [address] * CRP (cardiac risk) (03/25/2024 9:48 AM TANK DRIVER) [facility] hsCRP 1.1 mg/L [facility] [...] for Disease Control and Prevention and the [place] [employer]. Circulation 2003; 107(3): 499-511. 03/25/2024 9:48 AM TANK DRIVER 03/25/2024 9:49 AM TANK DRIVER Narrative [facility] - 03/27/2024 12:44 AM TANK DRIVER FASTING:YES Patient Report History copied from and originally reported to client [id number] in site ([facility]) Adrienne VALDEZ LAB BLOOD ORDERABLES Final Result [facility] [address] [place] [address] * T4, free (03/25/2024 9:48 AM TANK DRIVER) Pathologist [facility] Free T4 1.6 0.8 - 1.8 ng/dL [facility] 03/25/2024 9:48 AM TANK DRIVER 03/25/2024 9:49 AM TANK DRIVER Narrative [facility] - 03/27/2024 12:44 AM TANK DRIVER FASTING:YES Patient Report History copied from and originally reported to client [id number] in site ([facility]) us Adrienne VALDEZ LAB BLOOD ORDERABLES Final Result [facility] [address] [place] [id number] * (ABNORMAL) Comprehensive metabolic panel (03/25/2024 9:48 AM TANK DRIVER) Glucose 98 65 - 99 mg/dL [facility] [...] U/L [facility] 03/25/2024 9:48 AM TANK DRIVER 03/25/2024 9:49 AM TANK DRIVER Narrative [facility] - 03/27/2024 12:44 AM TANK DRIVER FASTING:YES Patient Report History copied from and originally reported to client [id number] in site ([facility]) us Adrienne VALDEZ LAB BLOOD ORDERABLES Final Result [facility] [address] [place] [address] * Vitamin D 25 hydroxy (03/25/2024) SCRIBED 25-OH Vitamin D 58 30 - 100 ng/mL EXTERNAL LAB Blood 03/25/2024 us Mi Prescott NP LAB BLOOD ORDERABLES Patricia l Result Performing Organization Address [facility] Co de Phone Number EXTERNAL LAB * TSH (03/25/2024) Scribed TSH 2.07 0.40 - 4.50 mcU/mL EXTERNAL LAB Blood 03/25/2024 us Mi Prescott NP LAB BLOOD ORDERABLES Patricia l Result Performing Organization Address [facility] Co de Phone Number EXTERNAL LAB * T4, free (03/25/2024) SCRIBED T4, Free 1.6 0.8 - 1.8 mcg/dL EXTERNAL LAB Blood 03/25/2024 us Misusi Prescott SPONGE PRESS OPERATOR LAB BLOOD ORDERABLES Patricia l Result Performing Organization Address City/[facility]/ZIP Co de Phone Number EXTERNAL LAB [...] Units/L EXTERNAL LAB SCRIBED eGFR in NonAfrican Greek 74 >=60 - NA EXTERNAL LAB Blood 03/25/2024 us Mi Prescott NP LAB BLOOD ORDERABLES Patricia live Result EXTERNAL LAB from Last 3 Months Insurance [facility]NA MEDICARE Address: [facility] [id number] [place] [id number] [facility] Care Teams Passenger Car Upholsterer Apprentice Relationship Specialty Start Date End Date Adrienne Pereira PA [address] [place] [id number] PCP - General Physician Filter Tip Catcher 01/07/24
--- OUTSIDE RECORDS SUMMARY | 2024-06-01 17:22 | XMS_ITS | Encounter Summary ---
Author Organization [facility] Address [address] [place] [address] Care Team Providers Care Trade Analyst Name Role Phone Dm Villanueva MD Primary Care Provider [facility] Julio Giron MD Primary Care Provider [phone] Ayad Garcia MD Primary Care Provider [phone] Encounter Details Date Type Department Care Team (Late st Contact Info) Description 06/01/2015 Abstract [facility] CONVERSION [address] [place] [address] , Beatriz Chandra MD Social History Tobacco Use Types Packs/Day Years Used Date Smoking Tobacco: Never Assessed Comments Unknown Sex and Gender Information Value Date Recorded Sex Assigned at Not on file Legal Sex Female 11:33 PM CDT Gender Identity Female 03/20/2021 5:50 PM MOLD YARD CRANE OPERATOR Sexual Orientation Straight 03/20/2021 5: 50 PM MOLD YARD CRANE OPERATOR documented as of this encounter Plan of Treatment Not on file documented as of this encounter Visit Diagnoses Not on filedocumented in this encounter Care Teams Trade Analyst Relationship Specialty Start Date End Date Dm Villanueva MD PCP - General INTERNAL MEDICINE 01/29/18 12/25/20 Julio Giron MD PCP - General INTERNAL MEDICINE 12/26/20 10/08/21 Ayad Garcia MD [address] [place] [id number] PCP - General FAMILY PRACTICE 10/09/21 documented as of this encounter
--- OUTSIDE RECORDS SUMMARY | 2024-06-01 17:22 | XMS_ITS | Encounter Summary ---
Author Organization [facility] Address [address] [place] [address] Care Team Providers Care Research Lab Assistant Name Role Phone Dm Villanueva MD Primary Care Provider [facility] Julio Giron MD Primary Care Provider [phone] Ayad Garcia MD Primary Care Provider [phone] Encounter Details Date Type Department Care Team (Late st Contact Info) Description 09/24/2016 Abstract [facility] CONVERSION [address] [place] [address] , Beatriz Chandra MD Social History Tobacco Use Types Packs/Day Years Used Date Smoking Tobacco: Never Assessed Comments Unknown Sex and Gender Information Value Date Recorded Sex Assigned at Not on file Legal Sex Female 11:33 PM CDT Gender Identity Female 03/20/2021 5:50 PM SSN/SSBN WEAPONS EQUIPMENT OPERATOR Sexual Orientation Straight 03/20/2021 5: 50 PM SSN/SSBN WEAPONS EQUIPMENT OPERATOR documented as of this encounter Plan of Treatment Not on file documented as of this encounter Visit Diagnoses Not on filedocumented in this encounter Care Teams Research Lab Assistant Relationship Specialty Start Date End Date Dm Villanueva MD PCP - General INTERNAL MEDICINE 01/29/18 12/25/20 Julio Giron MD PCP - General INTERNAL MEDICINE 12/26/20 10/08/21 Ayad Garcia MD [address] [place] [address] PCP - General FAMILY PRACTICE 10/09/21 documented as of this encounter
--- OUTSIDE RECORDS SUMMARY | 2024-06-01 17:22 | XMS_ITS | Encounter Summary ---
Author Organization [facility] Address [address] [place] [address] Care Team Providers Care Telegraphic Typewriter Installer Name Role Phone Dm Villanueva MD [facility] Primary Care Provider [phone] Ayad Garcia MD Primary Care Provider [phone] Encounter Details Date Type Department Care Team (Late st Contact Info) Description 12/03/2018 Therapy Plan [facility] [address] [place], [place] [id number] Dm Villanueva MD Social History Tobacco Use Types Packs/Day [...] CDT Gender Identity Female 03/20/2021 5:50 PM PHONOGRAPH CARTRIDGE ASSEMBLER Sexual Orientation Straight 03/20/2021 5: 50 PM PHONOGRAPH CARTRIDGE ASSEMBLER documented as of this encounter Plan of Treatment Not on file documented as of this encounter Visit Diagnoses Not on filedocumented in this encounter Care Teams Telegraphic Typewriter Installer Relationship Specialty Start Date End Date Dm Villanueva MD PCP - General INTERNAL MEDICINE 01/29/18 12/25/20 Julio Giron MD PCP - General INTERNAL MEDICINE 12/26/20 10/08/21 Ayad Garcia MD [address] [place] [id number] PCP - General FAMILY PRACTICE 10/09/21 documented as of this encounter
--- OUTSIDE RECORDS SUMMARY | 2024-06-01 17:22 | XMS_ITS | Clinical Summary ---
Author Organization [facility] Address [address] [place] [address] Care Team Providers Care Airborne And Air Delivery Specialist Name Role Phone Ayad Garcia MD Primary Care Provider [phone] Allergies Active Allergy Reactions Criticality Noted Date Comments Amitriptyline Anxiety,Unknown,Othe r (see comment) Low 05/20/2015 Night sweats Bumetanide Unknown,Syncope High 04/06/2023 Corticosteroids Anaphylaxis High 07/11/2021 Dexamethasone Shortness of Breath High 05/20/2015 Duloxetine Anxiety,Angioedema,S welli ng Medium 05/20/2015 Panic attack Duloxetine Hcl Swelling,Anxiety Low 01/29/2018 Ipratropium-Albuterol Shortness of Breath High 05/19 Prednisone Shortness of Breath,Unknown High 04/08/2014 Topiramate Swelling,Anxiety Low 01/29/2018 Medications tizanidine 4 MG tablet Take 1 tablet (4 mg total) by mouth 2 (two) times a day. 5 Active ALPRAZolam 1 MG tablet Take 0.5 tablets (0.5 mg total) by mouth nightly as needed for Anxiety or Sleep. 0 8 Active levothyroxine (SYNTHROID) 112 MCG tablet Take 1 tablet (112 mcg total) by mouth daily. 0 9 Active ROPINIROLE 4 MG tabletIndicatio ns:Restless leg syndrome TAKE 1 TABLET BY MOUTH THREE TIMES DAILY 90 tablet 0 Active Additional Information Patient taking differently: 4 mg Oral 3 times daily, (No instructions reported), Reported on 06/20/2023 HYDROcodone-jennifer taminophen 10-325 MG tablet Take 1 tablet by mouth 3 (three) times daily as needed. 2 Active ondansetron 4 MG tablet Take 1 tablet (4 mg total) by mouth every 6 (six) hours as needed for Nausea. 2 Active calcium citrate 950 (200 CA) MG Tab tablet 950 mg 2 (two) times daily. Active Vitamin D3, cholecalciferol , 2000 UNIT Tab tablet Take 1 tablet (2,000 Units total) by mouth daily. Active furosemide (LASIX) 20 MG tablet Take 1 tablet (20 mg total) by mouth 2 (two) times a day. 3 Active sulfamethoxazol e-trimethoprim (BACTRIM DS) 800-160 MG tablet Take 1 tablet by mouth every 12 (twelve) hours. 3 Active calcitriol (ROCALTROL) 0.25 MCG capsule Take 1 capsule (0.25 mcg total) by mouth daily. Active folic acid (FOLVITE) 1 MG tablet Take 1 tablet (1 mg total) by mouth daily. Active albuterol sulfate HFA 108 (90 Base) MCG/ACT inhaler INHALE 2 PUFFS BY MOUTH EVERY 4 TO 6 HOURS NEEDED FOR SHORTNESS OF BREATH OR WHEEZING Active vitamin D2, ergocalciferol, (DRISDOL) 1.25 mg capsule Take 1 capsule (1.25 mg total) by mouth once a week. 4 Active fluticasone propionate (FLONASE) 50 MCG/ACT nasal spray 2 sprays by Each Nostril route daily. SHAKE LIQUID 4 Active nitroglycerin (NITROSTAT) 0.[address] 1 tablet (0.4 mg total) under the tongue every 5 (five) minutes as needed. Active levothyroxine (SYNTHROID) 137 MCG tablet Take 1 tablet (137 mcg total) by mouth every morning. 4 Active Active Problems Problem Noted Date Diagnosed Date Coronary artery calcification 09/15/2021 Assessment & Plan (10/27/2021 8:19 AM CDT): lexiscan myoview obtained due to reports of chest pain and known underlying coronary atherosclerosis. Neg for ischemia Atorvastatin continued Assessment & Plan (09/15/2021 2:06 PM CDT): I am recommending that she undergo exercise nuclear stress testing because she has coronary artery calcification and chest discomfort. I have also recommended that she start atorvastatin 20 mg daily. Lymphadenopathy of head and neck region 09/16/19 22 Assessment & Plan (09/15/2021 2:07 PM CDT): She has lymphadenopathy of the head and neck region. I recommended that I dedicated CT neck. I reviewed her CT chest with radiology her CT chest does not cover the submandibular lymph nodes. 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 Anxiety 04/08/2014 Backache 04/08/2014 Chronic interstitial cystitis 04/08/2014 Esophageal reflux 04/08/2014 Generalized osteoarthritis of multiple sites Hypothyroidism 04/08/2014 Nausea 04/08/2014 Sinusitis 04/08/2014 Resolved Problems Problem Noted Date Diagnosed Date Resolved Date Immunization, tetanus-diphtheria 12/03/2018 04/11/2020 Encounter for preventive health examination 04/08/2014 11/20/2019 Immunizations Name Administration Dates Next Due Afluria 36 MONTHS+ (Prefilled Syringe IIV4) 11/10 Flucelvax 6 Months+ (Prefilled Syringe) 12/04/19 20 Influenza (Generic) 12/29/2020,12/03/2018 Influenza Adult (Generic) 12/04/2019,12/03/2018 GARY ([facility]) COVID-19 AD26 VACCINE 0.5 ML IM SUSP 02/09/2021 Shingrix 12/29/2020 Tdap (Adacel) 12/05/2018 Family History Medical History Relation Comments Dementia Father Breast Cancer Maternal Aunt 1 Breast Cancer Maternal Aunt 2 Diabetes Mother Heart Attack Mother Stroke Mother Relation Status Comments Father Maternal Aunt 1 Maternal Aunt 2 Mother Social History Tobacco Use Types Packs/Day Years Used Date Smoking Tobacco: Former Cigarettes Q uit: 1989 Smokeless Tobacco: Never Tobacco Cessation:Counseling Given: No Alcohol Use Standard Drinks/Week Comments No 0 (1 standard drink = 0.6 oz pur e alcohol) AUDIT-C Answer Date Recorded Frequency of Alcohol Consumption Never 09/30/2018 Average Number of Drinks Not on file 019 Frequency of Binge Drinking Not on file 09/09 PHQ-2 Answer Date Recorded Patient Health Questionnaire-2 Score 1 10/10/2023 Comments No Sex and Gender Information Value Date Recorded Sex Assigned at Not on file Legal Sex Female 11:33 PM CDT Gender Identity Female 03/20/2021 5:50 PM MILK INSPECTOR Sexual Orientation Straight 03/20/2021 5: 50 PM MILK INSPECTOR Last Filed Vital Signs Vital Sign Reading Time Taken Comments Blood Pressure 112/69 10/10/2023 2:34 PM CDT Pulse 80 10/10/2023 2:34 PM CDT Temperature 36.7 C (98 F) 10/10/2023 2:34 PM CDT Respiratory Rate 18 10/10/2023 2:34 PM CDT Oxygen Saturation 97% 10/10/2023 2:34 PM CDT Inhaled Oxygen Concentration - - Weight 92.4 kg (203 lb 12.8 oz) 10/10/2023 2:34 PM CDT Height 152.4 cm (5') 10/10/2023 2:34 PM CDT Body Mass Index 39.8 10/10/2023 2:34 PM CDT Plan of Treatment Health Maintenance Due Date Last Done Comments Colorectal Cancer Screening Colonoscopy (10 Years) 1955 Hepatitis C 1975 Zoster Vaccines (2 of 2) 02/23/2021 12/29/2020 Annual Medicare Wellness Visit 2022 COVID-19 Vaccine ( season) 2023 02/09/2021, 07/10/2020 Influenza Adult (#1) 2023 12/15/2022, 12/29/2020, 12/04/2019, Additional history exists PHQ-2 (Physician [place]) 03/11/2024 10/10/2023 Mammogram Screening 06/19/2025 06/20/2023, 06/12/2022, 05/19/2021, Additional history exists DTaP, Tdap and Td Vaccines (2 - Td or Tdap) 12/05/2028 12/05/2018 RSV Immunization or 60+ Years (1 - 1-dose 75+ series) 02/14/2032 Pneumococcal Vaccine: 65+ Years Completed 01/18/2023 Dexa Scan (General) Completed 06/20/2023, 05/19/2021, 05/19/2021 Meningococcal B Vaccine Aged Out No l onger eligible based on patient's age to complete this topic Meningococcal Vaccine Aged Out No thomas sammy eligible based on patient's age to complete this topic RSV Immunizations Under 20 Months Aged Out No longer eligible based on patient's age to complete this topic Procedures Procedure Name Priority Date/Time Associated Diagnosis Comments BONE DENSITY/DEXA Routine 06/20/2023 3:1 3 PM CDT Other primary ovarian failure MG SCREENING W YAEL CHRISTIE DIGI Routine 06/20/2023 2:49 PM CDT Encounter for screening mammogram for malignant neoplasm of breast from Last 3 Months or Most Recently Relevant to Health Maintenance Results * BONE DENSITY/DEXA (06/20/2023 3:13 PM CDT) Anatomical Region Laterality Modality Bone Bone Density 06/22/2023 7:04 AM CDT Impressions 06/22/2023 7:06 AM CDT IMPRESSION: WHO Classification: normal. FRAX: No score calculated as all T scores are within normal limits.. Referred By: ADRIENNE CONWAY Interpreted By: Van Dale MD, 06/22/2023 7:04 AM Narrative 06/22/2023 7:06 AM CDT Examination: Bone Density Axial Exam Date/Time: 06/20/2023 1:42 PM Reason For Exam: Postmenopausal. Other primary ovarian failure. Comparison: None Findings: DEXA bone densitometry The bone mineral density (BMD) was determined by dual-energy x-ray absorptiometry, the results are as follows: AP Lumbar Spine L1 through L4 BMD Patient (GM/SQCM): 1.002 T-Score (Standard deviations from young adult peak bone density): -0.4 Left femoral neck: BMD Patient (GM/SQCM): 0.774 T-Score (Standard deviations from young adult peak bone density): -0.7 Total Right femur: BMD Patient (GM/SQCM): 0.963 T-Score (Standard deviations from young adult peak bone density): 0.2 Recommendations: All patients should ensure an adequate intake of dietary calcium and vitamin D. The NOF recommend adults under the age of 50 need 1000 mg of calcium and 400-800 IU of vitamin D daily. Effective therapy for the prevention and treatment of osteoporosis include biphosphonates. Follow-up: People with diagnosed cases of osteoporosis or at high risk for fracture should have regular bone mineral density test. For patients eligible for Medicare, routine testing is allowed once every 2 years. Testing frequency can be increased to one year for patients who have rapidly progressing disease, those who are receiving or discontinuing medical therapy to restore bone mass, or have additional risk factors. Procedure Note Van Dale MD - 06/22/2023 Examination: Bone Density Axial Exam Date/Time: 06/20/2023 1:42 PM Reason For Exam: Postmenopausal. Other primary ovarian failure. Comparison: None Findings: DEXA bone densitometry The bone mineral density (BMD) was determined bydual-energy x-ray absorptiometry, the results are as follows: AP Lumbar Spine L1 through L4 BMD Patient (GM/SQCM): 1.002 T-Score (Standard deviations from young adult peak bonedensity): -0.4 Left femoral neck: BMD Patient (GM/SQCM): 0.774 T-Score (Standard deviations from young adult peak bonedensity): -0.7 Total Right femur: BMD Patient (GM/SQCM): 0.963 T-Score (Standard deviations from young adult peak bonedensity): 0.2 Recommendations: All patients should ensure an adequate intake of dietary calcium andvitamin D. The NOF recommend adults under the age of 50 need 1000 mg ofcalcium and 400-800 IU of vitamin D daily. Effective therapy for theprevention and treatment of osteoporosis include biphosphonates. Follow-up: People with diagnosed cases of osteoporosis or at high risk for fractureshould have regular bone mineral density test. For patients eligible forMedicare, routine testing is allowed once every 2 years. Testing frequencycan be increased to one year for patients who have rapidly progressingdisease, those who are receiving or discontinuing medical therapy torestore bone mass, or have additional risk factors. IMPRESSION: WHO Classification: normal. FRAX: No score calculated as all T scores are within normal limits.. Referred By: ADRIENNE CONWAY Interpreted By: Van Dale MD, 06/22/2023 7:04 AM us Adrienne VALDEZ DEXA Final Result * MG SCREENING W YAEL CHRISTIE DIGI (06/20/2023 2:49 PM CDT) Anatomical Region Laterality Modality Breast Bilateral Mammography 06/21/2023 11:2 7 AM CDT Impressions 06/21/2023 11:29 AM CDT ===== IMPRESSION: ===== 1. Stable mammographic appearance with no new findings to suggest malignancy in either breast. Assessment: ACR BI-RADS 2 - BENIGN FINDING(S) Recommendation: 1:Routine Screening Bilateral Comments: Ordered By: ADRIENNE CONWAY Interpreted By: Van Dale MD, 06/21/2023 11:27 AM Narrative 06/21/2023 11:29 AM CDT Examination: Digital bilateral screening mammogram with 3D Tomosynthesis Exam Date/Time: 06/20/2023 1:43 PM Reason For Exam: screening mammogram Benign left biopsy 2001. No other prior breast procedures. No personal or first-degree relative history of breast cancer. No current complaints Comparison: Mammograms from 06/12/2022 05/19/2021 09/08/2018 Technique: Digital screening mammography of both breasts was performed in addition to 3-D Tomosynthesis technique. This study was read with the assistance of a computer-aided detection system. Tissue density: The breast tissue is heterogeneously dense, which may obscure small masses. Findings: Benign axillary lymph nodes. Overall parenchymal pattern unchanged from prior studies. There is no new focal asymmetry, dominant mass lesion, area of skin thickening, or cluster of suspicious appearing calcifications in either breast to suggest malignancy. Adrienne VALDEZ MAMMO Final Result from Last 3 Months or Most Recently Relevant to Health Maintenance Insurance [employer] Care Teams Airborne And Air Delivery Specialist Relationship Specialty Start Date End Date Ayad Garcia MD [address] [place] [id number] PCP - General FAMILY PRACTICE 10/09/21
--- OUTSIDE RECORDS SUMMARY | 2024-06-01 17:22 | XMS_ITS | Encounter Summary ---
Author Organization [facility] Address [address] [place] [address] Care Team Providers Care Business Analyst Manager Name Role Phone Dm Villanueva MD Primary Care Provider [facility] Julio Giron MD Primary Care Provider [phone] Ayad Garcia MD Primary Care Provider [phone] Encounter Details Date Type Department Care Team (Late st Contact Info) Description 09/03/2017 Abstract [facility] CONVERSION [address] [place] [address] , Beatriz Chandra MD Social History Tobacco Use Types Packs/Day Years Used Date Smoking Tobacco: Never Assessed Comments Unknown Sex and Gender Information Value Date Recorded Sex Assigned at Not on file Legal Sex Female 11:33 PM CDT Gender Identity Female 03/20/2021 5:50 PM FURNACE UTILITY OPERATOR Sexual Orientation Straight 03/20/2021 5: 50 PM FURNACE UTILITY OPERATOR documented as of this encounter Plan of Treatment Not on file documented as of this encounter Visit Diagnoses Not on filedocumented in this encounter Care Teams Business Analyst Manager Relationship Specialty Start Date End Date Dm Villanueva MD PCP - General INTERNAL MEDICINE 01/29/18 12/25/20 Julio Giron MD PCP - General INTERNAL MEDICINE 12/26/20 10/08/21 Ayad Garcia MD [address] [place] [id number] PCP - General FAMILY PRACTICE 10/09/21 documented as of this encounter
--- OUTSIDE RECORDS SUMMARY | 2024-06-01 17:22 | XMS_ITS | Continuity of Care Document ---
Author Organization [facility] unt Address [address] [place] [address] Phone Care Team Providers Care Medical Case Manager Name Role Phone Priyanka Palacios Unavailable Unavailab le Procedures Procedure Date OV Est Problem Focus ROSANA Wet Prep OV Est Expanded Advance Directives Directive Yes / No Effective Date File Name No Information Encounters Encounter Description Practice Location Reason(s) For Visit Diagnoses Date Provider Providers Copied on Encounter OV Est Problem Focus [address], [id number], tel:[phone] DinnerTime No Information 0201 1 Tiffany Mathew. [address] [place], [place], [id number]. tel:[phone] OV Est Expanded [address], [id number], tel:[phone] DinnerTime FFS No Information 2-201 0 No Information Family History Family Member Type Diagnosis Age At Onset No Information Payers Payer name Insurance type Covered republican ID Authorsanjaya day(s) Sahil [facility] [id number] 0 Social History Type Description Quantity Date Captured Comments Sex Female Smoking Status No Information Chief Complaint And Reason For Visit No Information Reason For Referral Reason For Referral No Information History Of Present Illness Encounter Date Complaint History Of Prese nt Illness No Information Functional Status Date Functional Assessmen t No Information Instructions Date Instruction Additional Infor mation No Information Assessments Type Assessment Date No Information Patient Care Teams Name Effective Dates (start - stop) Status Members No Information
--- OUTSIDE RECORDS SUMMARY | 2024-06-01 17:22 | XMS_ITS | Clinical Summary ---
Author Organization [facility] Address [address] [place] [address] Phone Care Team Providers Care Sprinkler Inspector Name Role Phone Stoney Barajas MD Unavailable Adrienne Pereira I PAC Primary Care Provider [phone] Allergies Active Allergy Reactions Criticality Noted Date Comments Amitriptyline Other (see Comments),Unknown Low 05/09 Night sweats Duloxetine Hcl Swelling 04/16/2019 Dexamethasone Shortness of Breath High 05/20/2015 Ipratropium Shortness of Breath High 05/20/2015 Prednisone Shortness of Breath,Unknown High 04/08/19 15 Topiramate Swelling,Other (see Comments) Low 2015 Passed out Medications levothyroxine (SYNTHROID) 100 MCG Tablet 0 Active ROPINIROLE HYDROCHLORIDE 4 MG Tablet 2 mg. 0 Active tiZANidine (ZANAFLEX) 4 MG Tablet 2 mg. 0 Active ALPRAZolam (XANAX) 0.5 MG Tablet 0 Active Calcium Carbonate-Vit D-Min (CALCIUM 1200 PO) Take 2 Caps by mouth daily. Active Multiple Vitamins-Minerals (MULTIVITAMIN WOMEN 50+ PO) Take by mouth. Active Narcan 4 MG/0.1ML Liquid INSTILL 1 SPRAY INTO NOSTRIL NEEDED. MAY REPEAT 2ND DOSE. CALL 911 1 Active HYDROcodone-acetam inophen (NORCO) 10-325 MG Tablet TAKE 1 TABLET BY MOUTH THREE TIMES DAILY NEEDED FOR SEVERE PAIN 1 Active ondansetron (ZOFRAN) 4 MG Tablet TAKE 1 TABLET BY MOUTH EVERY 4 HOURS 1 Active pantoprazole (PROTONIX) 40 MG Tablet Delayed Response Take 40 mg by mouth daily. Active montelukast (SINGULAIR) 10 MG Tablet Take 10 mg by mouth every evening. Active folic acid (FOLVITE) 1 MG Tablet Take 1 tablet by mouth once daily 30 Tablet 2 Active furosemide (LASIX) 20 MG Tablet TAKE 1/2 TO 1 (ONE-HALF TO ONE) TABLET BY MOUTH IN THE MORNING 2 Active Active Problems Problem Noted Date Diagnosed Date Iron deficiency anemia 04/16/2019 Immunizations Immunization Administration Dates Next Due Covid-19 Vaccine, Vector-nr, Rs-ad26, Pf, 0.5 Ml ([employer]) 07/10/2020 Influenza Vaccine, MDCK,quadrivalent, pres free 12/04/2019 Influenza Vaccine, Quadrivalent, PF 12/03/2018 Influenza, Injectable, Quadrivalent 12/03/2018 TDAP Vaccine 12/05/2018 Family History Medical History Relation Name Comments Hypertension Father Cancer Mother Relation Name Status Comments Father Mother lung Social History Tobacco Use Types Packs/Day Years Used Date Smoking Tobacco: Former Cigarettes Q uit: 03/16/1987 Smokeless Tobacco: Never Tobacco Cessation:Counseling Given: Not Answered PHQ-2 Answer Date Recorded Total Score - Questions 1-9 4 03/11 Comments No Sex and Gender Information Value Date Recorded Sex Assigned at Not on file Legal Sex Female 12:37 PM LAYER UP Gender Identity Not on file Sexual Orientation Not on file Last Filed Vital Signs Vital Sign Reading Time Taken Comments Blood Pressure 130/86 03/22/2022 1:40 PM LAYER UP Pulse 83 03/22/2022 1:40 PM LAYER UP Temperature 36.7 C (98 F) 03/22/2022 1:40 PM LAYER UP Respiratory Rate 18 03/22/2022 1:40 PM LAYER UP Oxygen Saturation 96% 03/22/2022 1:40 PM LAYER UP Inhaled Oxygen Concentration - - Weight 77.6 kg (171 lb) 03/22/2022 1:40 PM LAYER UP Height 152.4 cm (5') 03/22/2022 1:40 PM LAYER UP Body Mass Index 33.4 03/22/2022 1:40 PM LAYER UP Plan of Treatment Health Maintenance Due Date Last Done Comments DEXA Bone Density 1957 Hepatitis C Virus (HCV) Screening 1955 Colonoscopy 2002 Colorectal Cancer Screening 2002 Cologuard 2007 Immunochemical Fecal Occult Blood 2007 Zoster Immunization (2 of 2) 02/23/2021 12/29/2020 Mammogram 06/13/2023 06/12/2022 Influenza Immunization (#1) 11/10/202309/2022, 12/29/2020, 12/29/2020, Additional history exists SARS-COV-2 Immunization ( season) 2023 02/09/2021, 07/10/2020 Respiratory Syncytial Virus (RSV) Immunization (Adult) (1 - 1-dose 75+ series) 02/14/2032 DTaP/Tdap/Td Immunization Discontinued 12/05/2018 Pneumococcal Immunization (50+ years) Completed 01/18/2023 Pneumococcal Immunization Combined Discontinued 01/18/2023 Hepatitis B Immunization Aged Out No longer eligible based on patient's age to complete this topic Meningococcal Immunization (ACWY) Aged Out No longer eligible based on patient's age to complete this topic Rotavirus Immunization Aged Out No lo nger eligible based on patient's age to complete this topic Insurance MEDICARE C AETNA Care Teams Sprinkler Inspector Relationship Specialty Start Date End Date Adrienne Pereira PAC [address] [place] [address] PCP - General Physician Senior Science Consultant 01/28/23 Stoney Barajas MD [address] [place] [phone] Consulting Physician Oncology 01/28/23
[2024-06-01 17:34] LABS: Prothrombin Time 13.5 Seconds (11.1-14.7)
[2024-06-01 17:35] LABS: Partial Thromboplastin Time 28.8 Seconds (22.3-36.8)
[2024-06-01 17:40] LABS: Add Urine Microscopic? YES; Appearance Urine Clear (Clear); Bacteria Urine None Seen /hpf; Bilirubin Urine Negative (Negative); Blood Urine Negative (Negative); Color Urine Yellow (Yellow); Glucose Urine UA Negative (Negative); Ketones Urine Negative (Negative); Leukocyte Esterase Ur 1+ LEU/UL (Negative); Nitrate Urine Negative (Negative); Non Pathogenic Casts 0-2; Protein Urine Negative (Negative); RBC Urine 0-2 /hpf (0-2); Specific Grav Ur 1.006 (1.001-1.035); Squamous Epithelial Cell Urine None Seen /hpf (Few); Urobilinogen Urine 0.2 mg/dL (<2.0); pH Urine 7.5 (5.0-9.0)
[2024-06-01 18:30] LABS: Phosphorus 3.9 mg/dL (2.5-4.5)
[2024-06-01 18:31] LABS: Alanine Aminotransferase 18 U/L (6-35); Albumin Level 4.4 g/dL (3.5-5.1); Alkaline Phosphatase 82 U/L (38-126); Anion Gap 5 mmol/L (4-12); Aspartate Amino Transferase 38 U/L (14-36); Bilirubin,Total 0.4 mg/dL (0.2-1.3); Blood Urea Nitrogen 15 mg/dL (7-17); Calcium 7.8 mg/dL (8.4-10.2); Carbon Dioxide 31 mmol/L (22-30); Chloride 103 mmol/L (98-107); Estimated Glomerular Filt Rate > 60; Glucose 93 mg/dL (65-110); Potassium 4.1 mmol/L (3.4-5.0); Sodium 139 mmol/L (137-145)
[2024-06-01 18:42] LABS: Troponin I < 0.012 ng/mL (0.000-0.034)
[2024-06-01] MEDS: MAGNESIUM SULF 1 GM/D5W 100 ML 1 GM/100 ML BAG IVPB (18:46)
--- OUTSIDE RECORDS SUMMARY | 2024-06-01 18:57 | XMS_ITS | Continuity of Care Document ---
Author Organization [facility] unt Address [address] [place] [address] Phone Care Team Providers Care Vp Clinical Name Role Phone Priyanka Palacios Unavailable Unavailab le Procedures Procedure Date OV Est Problem Focus ROSANA Wet Prep OV Est Expanded Advance Directives Directive Yes / No Effective Date File Name No Information Encounters Encounter Description Practice Location Reason(s) For Visit Diagnoses Date Provider Providers Copied on Encounter OV Est Problem Focus [address], [id number], tel:[phone] Su[employer] No Information 0201 1 Tiffany Mathew. [address] [place], [place], [id number]. tel:[phone] OV Est Expanded [address], [id number], tel:[phone] [employer] FFS No Information 2-201 0 No Information Family History Family Member Type Diagnosis Age At Onset No Information Payers Payer name Insurance type Covered alliance party ID Authorsanjaya day(s) Sahil [facility] [id number] Social History Type Description Quantity Date [...]
--- OUTSIDE RECORDS SUMMARY | 2024-06-01 18:57 | XMS_ITS | Clinical Summary ---
Author Organization [facility] Address [address] [facility] [place] [address] Care Team Providers Care Ramp Service Agent Name Role Phone Dm Villanueva MD Primary Care Provider [phone] Source Comments [facility],non-owned Affiliates and Associated Physician Practices is amultiple site organization consisting of ambulatory clinics and hospital sitesin [place], [place] and [place]. This disclosure is being madepursuant to the Care Everywhere program and may not contain all information available regarding this patient. Last updated 17.[facility] Allergies Active Allergy Reactions Criticality Noted Date [...] by mouth as needed 10/01/2019 Active ZENPEP [id number] units capsule TK 2 CS PO TID [...] 73.5 kg (162 lb) 04/28/2020 4:07 PM ART TRACER Height 151.1 cm (4' 11.5 ) 04/28/2020 4:07 PM CS T Body Mass Index 32.17 04/28/2020 4:07 PM ART TRACER Plan of Treatment Health Maintenance Due Date [...] age to complete this topic Care Teams Ramp Service Agent Relationship Specialty Start Date End Date Dm Villanueva MD [address] [address] PCP - General 05/20/15
--- OUTSIDE RECORDS SUMMARY | 2024-06-01 18:57 | XMS_ITS | Encounter Summary ---
Author Organization [facility] Address [address] [place] [address] Phone Care Team Providers Care Cottage Attendant Name Role Phone Adrienne Pereira Primary Care Provider [phone] Encounter Details Date Type Department Care Team (Late st Contact Info) Description 05/11/2024 Results Follow-Up [facility] General Neurology [address] [facility] 6th Floor [address] [place] [phone] Byron Burgess Jr., MD [address] [place] [address] Social History Tobacco Use Types Packs/Day Years [...] on file Legal Sex Female 11:54 PM FOREST FIRE PREVENTION MANAGER Gender Identity Female 01/11/2024 3:47 AM CDT Sexual Orientation Straight 01/11/2024 3: 47 AM CDT documented as of this encounter Functional Status documented as of this encounter Plan of Treatment Not on file documented as of this encounter Visit Diagnoses Not on filedocumented in this encounter Care Teams Cottage Attendant Relationship Specialty Start Date End Date Adrienne Pereira PA [address] [place] [address] PCP - General Physician Furnace Tender 01/07/24 documented as of this encounter
--- OUTSIDE RECORDS SUMMARY | 2024-06-01 18:57 | XMS_ITS | Encounter Summary ---
Author Organization [facility] Address [facility] [place] [address] Care Team Providers Care Quilting Supervisor Name Role Phone Julio Giron MD Primary Care Provider [phone] Ayad Garcia MD Primary Care Provider [phone] Encounter Details Date Type Department Care Team (Late st Contact Info) Description 09/29/2021 [employer] Message Enc [facility] [address] [address] [facility] Provider results Social History Tobacco Use Types [...] CDT Gender Identity Female 03/20/2021 5:50 PM CARDIAC CATH LAB RADIOLOGY TECHNOLOGIST Sexual Orientation Straight 03/20/2021 5: 50 PM CARDIAC CATH LAB RADIOLOGY TECHNOLOGIST COVID-19 Exposure Response Date Recorded In the last 10 days, have yo u been in contact with someone who was confirmed or suspected to have Coronavirus/COVID-19? No / Unsure 09/29/2021 9:07 AM CDT documented as of this encounter Plan of Treatment Not on file documented as of this encounter Visit Diagnoses Not on filedocumented in this encounter Care Teams Quilting Supervisor Relationship Specialty Start Date End Date Julio Giron MD PCP - General INTERNAL MEDICINE 12/26/20 10/08/21 Ayad Garcia MD [address] [place] [address] PCP - General FAMILY PRACTICE 10/09/21 documented as of this encounter
--- OUTSIDE RECORDS SUMMARY | 2024-06-01 18:57 | XMS_ITS | Encounter Summary ---
Author Organization [facility] Address On license of [facility] [place] [address] Care Team Providers Care Operating Engineer Apprentice Name Role Phone Ayad Garcia MD Primary Care Provider [phone] Encounter Details Date Type Department Care Team (Late st Contact Info) Description 12/19/2022 [employer] Message Enc [facility] ANMOORE BUSINESS OFFICE [facility], [facility] Provider Missed Call Social History Tobacco Use [...] CDT Gender Identity Female 03/20/2021 5:50 PM ONCOLOGY NURSE Sexual Orientation Straight 03/20/2021 5: 50 PM ONCOLOGY NURSE documented as of this encounter Plan of Treatment Not on file documented as of this encounter Visit Diagnoses Not on filedocumented in this encounter Care Teams Operating Engineer Apprentice Relationship Specialty Start Date End Date Ayad Garcia MD [address] [place] [address] PCP - General FAMILY PRACTICE 10/09/21 documented as of this encounter
--- OUTSIDE RECORDS SUMMARY | 2024-06-01 18:57 | XMS_ITS | Encounter Summary ---
Author Organization [facility] Address [address] [place] [address] Care Team Providers Care Bandage Maker Name Role Phone Adrienne Pereira Primary Care Provider [phone] Encounter Details Date Type Department Care Team (Late st Contact Info) Description 06/01/2024 Results Follow-Up [facility] Medical Group Diabetes and Endocrinology [address] [place] [phone] [place] [address] [facility] [address] [place], [place] [id number] Social History Tobacco Use Types Packs/Day Years [...] on file Legal Sex Female 11:54 PM WILDLIFE CONSERVATION PROFESSOR Gender Identity Female 01/11/2024 3:47 AM CDT [...] on filedocumented in this encounter Care Teams Bandage Maker Relationship Specialty Start Date End Date Adrienne Pereira PA [address] [place] [address] PCP - General Physician Hand Flatwork Finisher 01/07/24 documented as of this encounter
--- OUTSIDE RECORDS SUMMARY | 2024-06-01 18:57 | XMS_ITS | Encounter Summary ---
Author Organization [facility] Address [address] [place] [address] Phone Care Team Providers Care Paper Pattern Folder Name Role Phone Dm Villanueva MD Primary Care Provider [phone] Julio Giron MD Primary Care Provider Stoney Barajas MD Unavailable Adrienne Pereira Primary Care Provider [phone] Encounter Details Date Type Department Care Team (Late st Contact Info) Description 02/18/2020 Telephone [facility] [address] [facility] [address] [place] [address] Stoney Barajas MD [address] [place] [address] Social History Tobacco Use Types Packs/Day Years Used Date Smoking Tobacco: Former Cigarettes Q uit: 03/16/1987 Smokeless Tobacco: Never PHQ-2 Answer Date Recorded PHQ-2 Score 0 08/20/2019 Comments Unknown Sex and Gender Information Value Date Recorded Sex Assigned at Not on file Legal Sex Female 12:37 PM CORK SLABS SAWYER Gender Identity Not on file Sexual Orientation Not on file documented as of this encounter Miscellaneous Notes * Telephone Encounter - Melissa Schroeder - 02/18/2020 8:12 AM CST Patient called early this morning before we opened to cancel her appointment. She stated that she has been throwing up and diarrhea since 5:00 this morning. SLABS SAWYER documented in this encounter Plan of Treatment Not on file documented as of this encounter Visit Diagnoses Not on filedocumented in this encounter Additional Health Concerns Assessment Noted Time PHQ-9 Depression Total Score: 0 08/20/19 8:44 AM CDT documented as of this encounter Care Teams Paper Pattern Folder Relationship Specialty Start Date End Date Dm Villanueva MD [address] [place] [address] PCP - General Internal Medicine 04/07/19 11/20/20 Julio Giron MD [address] [place] [address] PCP - General Internal Medicine 03/16/21 01/27/23 Adrienne Pereira PAC [address] [place] [address] PCP - General Physician Union Organiser 01/28/23 Stoney Barajas MD [address] [place] [phone] Consulting Physician Oncology 01/28/23 documented as of this encounter
--- OUTSIDE RECORDS SUMMARY | 2024-06-01 18:57 | XMS_ITS | Encounter Summary ---
Author Organization [facility] Address [facility] [place] [address] Care Team Providers Care Manager Portable Name Role Phone Ayad Garcia MD Primary Care Provider [phone] Encounter Details Date Type Department Care Team (Late st Contact Info) Description 06/07/2022 [employer] Message Enc [facility] [address] [address] [place], [facility] Provider Echocardiogram Social History Tobacco Use [...] CDT Gender Identity Female 03/20/2021 5:50 PM ASSOCIATE DIRECTOR Sexual Orientation Straight 03/20/2021 5: 50 PM ASSOCIATE DIRECTOR COVID-19 Exposure Response Date Recorded In the last 10 days, have yo u been in contact with someone who was confirmed or suspected to have Coronavirus/COVID-19? No / Unsure 06/06/2022 12:05 PM CDT documented as of this encounter Plan of Treatment Not on file documented as of this encounter Visit Diagnoses Not on filedocumented in this encounter Care Teams Manager Portable Relationship Specialty Start Date End Date Ayad Garcia MD [address] [place] [address] PCP - General FAMILY PRACTICE 10/09/21 documented as of this encounter
--- OUTSIDE RECORDS SUMMARY | 2024-06-01 18:58 | XMS_ITS | Clinical Summary ---
Author Organization [facility] Address [address] [place] [address] Phone Care Team Providers Care Cargo Service Agent Name Role Phone Ayad Garcia MD Primary Care Provider [phone] Allergies No known active allergies Medications folic [...] CDT 3 Active naloxone (NARCAN) 4 mg/spray Bow, Non-Aerosol EMERGENCY USE ONLY: Administer 1 spray [...] Sex Assigned at Female 03/20/2023 3:29 PM FINANCIAL REPORTING ANALYST Legal Sex Female 11:25 PM CDT Gender Identity Female 03/20/2023 3:29 PM FINANCIAL REPORTING ANALYST Sexual Orientation Straight 03/20/2023 3: 29 PM FINANCIAL REPORTING ANALYST Last Filed Vital Signs Vital Sign Reading Time Taken Comments Blood Pressure 131/69 03/27/2023 2:50 PM FINANCIAL REPORTING ANALYST Pulse 90 03/27/2023 2:50 PM FINANCIAL REPORTING ANALYST Temperature 36 C (96.8 F) 03/27/2023 2:50 PM FINANCIAL REPORTING ANALYST Respiratory Rate 10 03/27/2023 2:50 PM FINANCIAL REPORTING ANALYST Oxygen Saturation 98% 03/27/2023 2:50 PM FINANCIAL REPORTING ANALYST Inhaled Oxygen Concentration - - Weight 94.3 kg (208 lb) 03/27/2023 2:50 PM FINANCIAL REPORTING ANALYST Height 149.9 cm (4' 11 ) 09/18/2022 [...] OSTEOPOROSIS SCREENING Completed 05/19/2021 Insurance AETNA PPO [facility] RX AETNA Medicare Part D RX [employer] (INTERNAL) [facility] Internal Plans AETNA PPO MCR Advance Directives For more information, please contact: [phone] * Full Code (Latest Code Status on File) Date Activated Date Inactivated Comments 09/18/2022 8:25 AM 09/21/2022 9:31 PM Care Teams Cargo Service Agent Relationship Specialty Start Date End Date Ayad Garcia MD [address] [place] [phone] PCP - General Family Practice 09/18/22
--- OUTSIDE RECORDS SUMMARY | 2024-06-01 18:58 | XMS_ITS | Encounter Summary ---
Author Organization [facility] Address [address] [place] [address] Care Team Providers Care Tool Engine Lathe Set Up Operator Name Role Phone Dm Villanueva MD Primary [facility] Primary Care Provider [phone] Ayad Garcia MD Primary Care Provider [phone] Encounter Details Date Type Department Care Team (Late st Contact Info) Description 12/03/2018 Therapy Plan [facility] [address] [place], [place] [phone] Dm Villanueva MD Social History Tobacco Use [...] CDT Gender Identity Female 03/20/2021 5:50 PM TIMBER HARVESTER OPERATOR Sexual Orientation Straight 03/20/2021 5: 50 PM TIMBER HARVESTER OPERATOR documented as of this encounter Plan of Treatment Not on file documented as of this encounter Visit Diagnoses Not on filedocumented in this encounter Care Teams Tool Engine Lathe Set Up Operator Relationship Specialty Start Date End Date Dm Villanueva MD PCP - General INTERNAL MEDICINE 01/29/18 12/25/20 Julio Giron MD PCP - General INTERNAL MEDICINE 12/26/20 10/08/21 Ayad Garcia MD [address] [place] [address] PCP - General FAMILY PRACTICE 10/09/21 documented as of this encounter
--- OUTSIDE RECORDS SUMMARY | 2024-06-01 18:58 | XMS_ITS | Encounter Summary ---
Author Organization [facility] Address [address] [place] [address] Care Team Providers Care Retail Advertising Sales Manager Name Role Phone Dm Villanueva MD Primary Care Provider [facility] Julio Giron MD Primary Care Provider [phone] Ayad Garcia MD Primary Care Provider [phone] Encounter Details Date Type Department Care Team (Late st Contact Info) Description 01/12/2017 Abstract [place] [address] , Generic ConversionMD Social History Tobacco Use Types Packs/Day Years Used Date Smoking Tobacco: Never Assessed Comments Unknown Sex and Gender Information Value Date Recorded Sex Assigned at Not on file Legal Sex Female 11:33 PM CDT Gender Identity Female 03/20/2021 5:50 PM PROPERTY SPECIALIST Sexual Orientation Straight 03/20/2021 5: 50 PM PROPERTY SPECIALIST documented as of this encounter Plan of Treatment Not on file documented as of this encounter Visit Diagnoses Not on filedocumented in this encounter Care Teams Retail Advertising Sales Manager Relationship Specialty Start Date End Date Dm Villanueva MD PCP - General INTERNAL MEDICINE 01/29/18 12/25/20 Julio Giron MD PCP - General INTERNAL MEDICINE 12/26/20 10/08/21 Ayad Garcia MD [address] [place] [address] PCP - General FAMILY PRACTICE 10/09/21 documented as of this encounter
--- OUTSIDE RECORDS SUMMARY | 2024-06-01 18:58 | XMS_ITS | Clinical Summary ---
Author Organization [facility] Address [address] [place] [phone] Care Team Providers Care Brass Pickler Name Role Phone Adrienne Pereira Primary Care Provider [phone] Allergies Active Allergy Reactions Criticality Noted Date [...] 03/19/2023 Assessment & Plan (05/05/2024 4:03 PM ACCOUNT AUDITOR): Chronic problems. Currently taking levothyroxine 137mcg daily. [...] hypo/hyperthyroidism. Assessment & Plan (03/19/2023 12:54 PM ACCOUNT AUDITOR): Patient currently on levothyroxine 112 mcg oral daily Recheck thyroid function test today and further plans based on it Hypocalcemia 03/19/2023 Assessment & Plan (05/05/2024 4:04 PM ACCOUNT AUDITOR): Chronic problem. Currently taking Calcitrol 0.5mg daily as well as Tums approx 10/day (500 [id number] tabs). Was supposed to increase calcitriol to [...] increase your PTH level. I suggested an [id number] Magnesium supplement to take in the evening with medications to see if it would help with leg pain & lower PTH level. Assessment & Plan (03/19/2023 12:55 PM ACCOUNT AUDITOR): Hypocalcemia, poor absorption, vitamin-D deficiency Continue current calcitriol and calcium supplementation Recheck levels today and further plans based on it Vitamin D deficiency 03/19/2023 Assessment & Plan (05/05/2024 4:08 PM ACCOUNT AUDITOR): Chronic problem. Currently taking ergocalciferol 50,000IU weekly. [...] time. Assessment & Plan (03/19/2023 12:54 PM ACCOUNT AUDITOR): Patient currently on replacement therapy Recheck levels today and further plans based on it Syncope and collapse 12/07/2022 Chest pain 12/07/2022 Dysphonia 07/11/2021 Chronic cough 07/11/2021 Laryngopharyngeal reflux (LPR) 07/11/2021 Encounters Date Type Department Care Team Description 06/01/2024 Results Follow-Up [facility] Medical Group Diabetes and Endocrinology [address] [place] [phone] Mi Prescott NP 05/29/2024 1:20 PM CDT - 05/29/2024 11:59 PM CDT Hospital Encounter [facility] Respiratory [address] [place] [address] SOB (shortness of breath) Discharge Disposition: Discharge to home or self care 05/26/2024 Telephone [facility] General Neurology [address] [facility] Advanced Medicine 6th [place] [address] [place] [address] Snehal Schroeder RN 05/19/2024 Telephone [facility] Scheduling [address] [place] [address] Kristal Caldera CMA 05/11/2024 11:15 AM ACCOUNT AUDITOR Lab [facility] Advanced Medicine (CAM) [address] [place] [phone] Pain in right foot 05/11/2024 8:30 AM ACCOUNT AUDITOR Office Visit [facility] General Neurology [address] [facility] 6th [place] [address] [place] [address] Byron Burgess Jr., MD Imbalance (Primary Dx); Pain in right foot; Abnormal response to nerve stimulation; Memory loss; Obesity (BMI 30.0-34.9) 05/11/2024 Results Follow-Up [facility] General Neurology [address] [facility] 6th Floor [address] [place] [phone] Byron Burgess Jr., MD 05/06/2024 Orders Only [facility] Hematology [address] [facility] Floor 6 [place] [address] Noelle Stevens 05/05/2024 2:00 PM ACCOUNT AUDITOR Office Visit [facility] Medical Group Diabetes and Endocrinology [address] [place] [phone] Mi Prescott NP Hypocalcemia (Primary Dx); Postoperative hypothyroidism; Vitamin D deficiency 04/21/[address] [facility] Medical Group Diabetes and Endocrinology [address] [place] [phone] Mi Prescott NP Hypocalcemia 04/16/2024 9:25 AM ACCOUNT AUDITOR - 04/16/2024 11:59 PM ACCOUNT AUDITOR Hospital Encounter [facility] Diagnostic Imaging [address] [place] [address] SOB (shortness of breath) Discharge Disposition: Discharge to home or self care 04/16/2024 8:30 AM ACCOUNT AUDITOR Office Visit [facility] Pulmonology [address] [place] [address] [address] [place] [address] Parish Galarza MD Obesity, unspecified class, unspecified obesity type, unspecified whether serious comorbidity present (Primary Dx); Cough, unspecified type; SOB (shortness of breath); Nicotine dependence, cigarettes, in remission; Snoring 04/16/2024 Telephone [facility] Pulmonology [address] [place] [address] [address] [place] [address] Parish Galarza MD 04/02/2024 Orders Only [facility] Group Diabetes and Endocrinology [address] [place] [address] Mi Prescott NP 03/25/2024 1:00 PM ACCOUNT AUDITOR Office Visit [facility] Orthopaedic Surgery [address] [facility] Medical Office Building [address] [place] [address] Maycol Koehler NP Right foot pain (Primary Dx); Pain in right foot; Abnormal response to nerve stimulation 03/25/2024 12:17 PM ACCOUNT AUDITOR - 03/25/2024 11:59 PM ACCOUNT AUDITOR Hospital Encounter [facility] [address] [facility] [address] [place] [address] Right foot pain Discharge Disposition: Discharge to home or self care 03/25/2024 Orders Only [facility] INTERFACE [address] Adrienne Pereira PA 03/09/2024 Orders Only [facility] Group Diabetes and Endocrinology [address] [place] [address] Mi Prescott NP Vitamin D deficiency (Primary [...] ESKD Requiring Dialysis Half-Sister 2 Anemia Mother [place] Arthritis Mother [place] Asthma Mother [place] Bleeding Disorder Mother Sona COPD Mother [place] Cancer Mother [place] Clotting disorder Mother Sona Dementia Mother Sona Depression Mother [place] Diabetes Mother [place] Early Mother [place] Hearing loss Mother [place] Heart attack Mother Sona Hyperlipidemia Mother [place] Hypertension Mother Sona Kidney disease Mother Sona Lung cancer Mother Sona Mental illness Mother Sona Obesity Mother Sona Rashes / Skin problems Mother [place] Relation Name Status Comments Daughter Alive Father [...] on file Legal Sex Female 11:54 PM ACCOUNT AUDITOR Gender Identity Female 01/11/2024 3:47 AM CDT Sexual Orientation Straight 01/11/2024 3: 47 AM CDT Obstetrics History Last Filed Vital Signs Vital Sign Reading Time Taken Comments Blood Pressure 142/82 05/11/2024 8:19 AM ACCOUNT AUDITOR Pulse 66 05/11/2024 8:19 AM ACCOUNT AUDITOR Temperature 36.4 C (97.5 F) 04/16/2024 8:33 AM ACCOUNT AUDITOR Respiratory Rate 18 05/05/2024 1:51 PM ACCOUNT AUDITOR Oxygen Saturation 98% 04/16/2024 8:33 AM ACCOUNT AUDITOR Inhaled Oxygen Concentration - - Weight 95.7 kg (211 lb) 05/11/2024 8:19 AM ACCOUNT AUDITOR Height 149.9 cm (4' 11 ) 05/11/2024 8:19 AM ACCOUNT AUDITOR Body Mass Index 42.62 05/11/2024 8:19 AM ACCOUNT AUDITOR Plan of Treatment Health Maintenance Due Date [...] TO DERRICK QUANTITATIVE Routine 05/11/2024 10:13 AM ACCOUNT AUDITOR Pain in right foot ANTI-DOUBLE STRANDED DNA ANTIBODIES Routine 05/11/2024 10:13 AM ACCOUNT AUDITOR Pain in right foot ASHLYN ANTIBODY EVALUATION WITH REFLEX Routine 05/11/2024 10:13 AM ACCOUNT AUDITOR Pain in right foot XR CHEST PA LATERAL 2 VIEWS Schedule Routine, Read Routine (OP Routine) 04/16/2024 9:42 AM ACCOUNT AUDITOR SOB (shortness of breath) XR FOOT RIGHT 3 OR MORE VIEWS Schedule Routine, Read Routine (OP Routine) 03/25/2024 1:16 PM ACCOUNT AUDITOR Right foot pain COPY(IES) SENT TO: Routine 03/25/2024 9: 52 AM ACCOUNT AUDITOR CBC WITH AUTO DIFFERENTIAL Routine 03/25/2024 9:52 AM ACCOUNT AUDITOR Iron deficiency anemia, unspecified iron deficiency anemia type FERRITIN Routine 03/25/2024 9:52 AM ACCOUNT AUDITOR Iron deficiency anemia, unspecified iron deficiency anemia type IRON PROFILE W/ IBC Routine 03/25/2024 9 :52 AM ACCOUNT AUDITOR Iron deficiency anemia, unspecified iron deficiency anemia type VITAMIN D 25 HYDROXY Routine 03/25/2024 9:48 AM ACCOUNT AUDITOR TSH W/REFL FT4 Routine 03/25/2024 9:48 AM ACCOUNT AUDITOR T4, FREE Routine 03/25/2024 9:48 AM ACCOUNT AUDITOR ANACHOICE(R) SPECIFIC AB CASCADING REFLEX Routine 03/25/2024 9:48 AM ACCOUNT AUDITOR CYCLIC CITRUL PEPTIDE ANTIBODY, IGG Routine 03/25/2024 9:48 AM ACCOUNT AUDITOR CRP, HIGH SENSITIVITY Routine 03/25/2024 9:48 AM ACCOUNT AUDITOR RHEUMATOID FACTOR Routine 03/25/2024 9:4 8 AM ACCOUNT AUDITOR ERYTHROCYTE SEDIMENTATION RATE Routine 03/25/2024 9:48 AM ACCOUNT AUDITOR COMPREHENSIVE METABOLIC PANEL Routine 03/25/2024 9:48 AM ACCOUNT AUDITOR T4, FREE Routine 03/25/2024 Acquired hypothyroidism TSH Routine 03/25/2024 Acquired hypothyroidism VITAMIN D 25 HYDROXY Routine 03/25/2024 Vitamin D deficiency COMPREHENSIVE METABOLIC PANEL Routine 03/25/2024 Hypocalcemia from Last 3 Months Results * COPY(IES) SENT TO: (05/26/2024 9:52 AM CDT) COPY(IES) SENT TO: RAVINDRA Comment: [facility] [address] [place] [address] 05/26/2024 9:52 AM CDT 05/26/2024 9:56 AM CDT Narrative [facility] - 05/27/2024 4:39 PM CDT FASTING:YES FASTING: YES us Mi Prescott SOLAR INSTALLER LAB BLOOD ORDERABLES Patricia l Result Performing Organization Address City/[facility] Co de Phone Number [facility] * (ABNORMAL) Calcium, ionized (05/26/2024 9:52 AM CDT) Calcium, Ionized 4.3(L) 4.7 - 5.5 mg/dL [facility] Comment: Your request to have a duplicate copy faxed has been acknowledged. Queued to: [id number] Blood 05/26/2024 9:52 AM CDT 05/26/2024 9:56 AM CDT Narrative [facility] - 05/27/2024 4:39 PM CDT FASTING:YES FASTING: YES us Mi Prescott SOLAR INSTALLER LAB BLOOD ORDERABLES Patricia l Result Performing Organization Address [facility] de Phone Number [facility] [address] [place] [address] * (ABNORMAL) PTH (05/26/2024 9:52 AM CDT) [...] CDT FASTING:YES FASTING: YES us Mi Prescott SOLAR INSTALLER LAB BLOOD ORDERABLES Patricia l Result Performing Organization Address [facility] Co de Phone Number [facility] [address] [facility] [place] [address] * (ABNORMAL) Basic metabolic panel (05/26/2024 9:52 [...] AM CDT 05/26/2024 9:56 AM CDT Narrative [facility] - 05/27/2024 4:39 PM CDT FASTING:YES FASTING: YES us Mi Prescott SOLAR INSTALLER LAB BLOOD ORDERABLES Patricia l Result [facility] [address] [place] [address] * DERRICK ab ql w/rflx to DERRICK qn (05/11/2024 10:13 AM ACCOUNT AUDITOR) DERRICK Negative Comment: Interpretive Data Normal range [...] on 2019. Blood 05/11/2024 10:1 3 AM ACCOUNT AUDITOR 05/11/2024 10:47 AM ACCOUNT AUDITOR Byron Burgess Jr., MD LAB BLOOD ORDERABL ES Final Result Performing Organization Address [facility] Phone Number [facility] [place] [address] * Anti-double stranded DNA abs (05/11/2024 10:13 AM ACCOUNT AUDITOR) dsDNA Ab <1.0 <=4.0 IUnits/mL Comment: Interpretive Data Negative: < or = 4 IUnits/mL Indeterminate: 5 - 9 IUnits/mL Positive: > or = 10 IUnits/mL Current interpretive data was last revised on 2016. Blood 05/11/2024 10:1 3 AM ACCOUNT AUDITOR 05/11/2024 10:47 AM ACCOUNT AUDITOR Byron Burgess Jr., MD LAB BLOOD ORDERABL ES Final Result Performing Organization Address [facility] de Phone Number [facility] [place] [address] * ASHLYN ab eval w/reflex (05/11/2024 10:13 AM ACCOUNT AUDITOR) ASHLYN ab Negative Negative Comment: Interpretive Data Positive Screens will be reflexed to specific testing for Antibodies against the following antigens: Vielka-1 Ab, HOSPITAL COORDINATOR Ab, Scl-70 Ab, Greene Ab, SS-A/Ro Ab, and SS- B/La Ab. Further testing for dsDNA, Centromere, or Ribosomal P antibodies is suggested in patient with a positive screen and negative specific antibodies. Current interpretive data was last revised on 2022. Blood 05/11/2024 10:1 3 AM ACCOUNT AUDITOR 05/11/2024 10:47 AM ACCOUNT AUDITOR Byron Burgess Jr., MD LAB BLOOD ORDERABL ES Final Result [facility] Department [place] [address] * XR Chest Pa Lateral 2 Views (04/16/2024 9:42 AM ACCOUNT AUDITOR) Anatomical Region Laterality Modality Body, Chest N/A Computed Radiogr aphy 04/20/2024 11:2 2 AM ACCOUNT AUDITOR Narrative 04/20/2024 11:23 AM ACCOUNT AUDITOR EXAM DESCRIPTION: XR CHEST PA LATERAL 2 [...] Angel Villanueva M.D. AM T: Report ID: [id number] Reading Location: [id number] Procedure Note Angel Villanueva MD - 04/20/2024 [...] Angel Villanueva M.D. AM T: Report ID: [id number] Reading Location: [id number] Parish Galarza MD IMG XR PROCEDURES Final Resu lt * XR Foot Right 3 or More Views (03/25/2024 1:16 PM ACCOUNT AUDITOR) Anatomical Region Laterality Modality Lower Extremities, Foot Right Computed Radiography 03/25/2024 1:30 PM ACCOUNT AUDITOR Impressions 03/25/2024 1:30 PM ACCOUNT AUDITOR 1. Mild distal right Achilles tendinopathy and small heel spur. 2. Mild right midfoot osteoarthritis. Electronically signed by: Ifeanyi Lewis M.D. Narrative 03/25/2024 1:30 PM ACCOUNT AUDITOR EXAMINATION: XR FOOT RIGHT 3 OR MORE [...] * COPY(IES) SENT TO: (03/25/2024 9:52 AM ACCOUNT AUDITOR) Pathologist [facility] COPY(IES) SENT TO: RAVINDRA Comment: [facility] [address] [place] [address] 03/25/2024 9:52 AM ACCOUNT AUDITOR 03/25/2024 9:52 AM ACCOUNT AUDITOR Narrative [facility] - 03/26/2024 6:49 AM ACCOUNT AUDITOR FASTING:YES FASTING: YES Rubi Schofield SOLAR INSTALLER LAB BLOOD ORDERABLES Final Result [facility] * Iron profile w/ IBC (03/25/2024 9:52 AM ACCOUNT AUDITOR) Pathologist [facility] Iron 96 45 - 160 mcg/dL [facility] TIBC 371 250 - 450 mcg/dL (calc) [facility] Iron saturation 26 16 - 45 % (calc) [facility] Blood 03/25/2024 9:52 AM ACCOUNT AUDITOR 03/25/2024 9:52 AM ACCOUNT AUDITOR Narrative [facility] - 03/26/2024 6:49 AM ACCOUNT AUDITOR FASTING:YES FASTING: YES Rubi Schofield SOLAR INSTALLER LAB BLOOD ORDERABLES Final Result Performing Organization Address City/[facility]/ZIP Co de Phone Number [facility] [address] [place] [address] * (ABNORMAL) CBC with auto differential (03/25/2024 9:52 AM ACCOUNT AUDITOR) Pathologist [facility] WBC 4.2 3.8 [...] [facility] Blood 03/25/2024 9:52 AM ACCOUNT AUDITOR 03/25/2024 9:52 AM ACCOUNT AUDITOR Narrative [facility] - 03/26/2024 6:49 AM ACCOUNT AUDITOR FASTING:YES FASTING: YES Rubi Schofield SOLAR INSTALLER LAB BLOOD ORDERABLES Final Result [facility] [address] [address] [place] [address] * Ferritin (03/25/2024 9:52 AM ACCOUNT AUDITOR) Ferritin 20 16 - 288 ng/mL [facility] Blood 03/25/2024 9:52 AM ACCOUNT AUDITOR 03/25/2024 9:52 AM ACCOUNT AUDITOR Narrative [facility] - 03/26/2024 6:49 AM ACCOUNT AUDITOR FASTING:YES FASTING: YES Rubi Schofield SOLAR INSTALLER LAB BLOOD ORDERABLES Final Result Performing Organization Address City/[facility]/ZIP Co de Phone Number [facility] [address] [place] [address] * TSH W/REFL FT4 (03/25/2024 9:48 AM ACCOUNT AUDITOR) TSH 2.07 0.40 - 4.50 mIU/L [facility] 03/25/2024 9:48 AM ACCOUNT AUDITOR 03/25/2024 9:49 AM ACCOUNT AUDITOR Narrative [facility] - 03/27/2024 12:44 AM ACCOUNT AUDITOR FASTING:YES Patient Report History copied from and originally reported to client [id number] in site ([facility]) Adrienne Pereira PA LAB BLOOD ORDERABLES Final Result Performing Organization Address [facility] Co de Phone Number [facility] [address] [place] [address] * ANAChoice (R) specific Ab cascading reflex (03/25/2024 9:48 AM ACCOUNT AUDITOR) Pathologist [facility] DERRICK, qual NEGATIVE NEGATIVE [facility] Comment: A negative DERRICK Multiplex indicates the absence of detectable antibodies to component analytes consisting of double stranded DNA (dsDNA), chromatin, ribonucleoprotein (HOSPITAL COORDINATOR), Greene/HOSPITAL COORDINATOR (Sm/HOSPITAL COORDINATOR), Greene (Sm), SS-A, SS-B, Vielka-1, centromere B, Scl-70 and ribosomal P. A negative result should be interpreted in the context of the clinical and laboratory findings and does not rule out autoimmune disease characterized by other autoantibody specificities such as rheumatoid arthritis, autoimmune hepatitis, primary biliary cirrhosis, autoimmune thyroiditis, Grace's disease, pernicious anemia, autoimmune neuropathies, vasculitis, celiac disease, and bullous disease. For additional information, please refer to http://education.Conductrics/faq/LNR208 (This link is being provided for informational/ educational purposes only.) 03/25/2024 9:48 AM ACCOUNT AUDITOR 03/25/2024 9:49 AM ACCOUNT AUDITOR Narrative [facility] - 03/27/2024 12:44 AM ACCOUNT AUDITOR FASTING:YES Patient Report History copied from and originally reported to client [id number] in site ([facility]) Adrienne VALDEZ LAB BLOOD ORDERABLES Final Result Performing Organization Address [facility]/ZIP Co de Phone Number [facility] [address] [place] [address] * Cyclic citrul peptide antibody, IgG (03/25/2024 9:48 AM ACCOUNT AUDITOR) Pathologist [facility] Cyclic citrullinated peptide ab, IgG <16 UNITS [facility] Comment: Reference Range Negative: <20 Weak Positive: 20-39 Moderate Positive: 40-59 Strong Positive: >59 03/25/2024 9:48 AM ACCOUNT AUDITOR 03/25/2024 9:49 AM ACCOUNT AUDITOR Narrative [facility] - 03/27/2024 12:44 AM ACCOUNT AUDITOR FASTING:YES Patient Report History copied from and originally reported to client [id number] in site ([facility]) Adrienne VALDEZ LAB BLOOD ORDERABLES Final Result Performing Organization Address [facility] de Phone Number [facility] [address] [place] [address] * Vitamin D 25 hydroxy (03/25/2024 9:48 AM ACCOUNT AUDITOR) Pathologist [facility] Vitamin D 25-OH 58 30 - 100 ng/mL [facility] Comment: Vitamin D Status 25-OH Vitamin D: Deficiency: <20 ng/mL Insufficiency: 20 - 29 ng/mL Optimal: > or = 30 ng/mL For 25-OH Vitamin D testing on patients on D2-supplementation and patients for whom quantitation of D2 and D3 fractions is required, the [facility]) 25-OH VIT D, (D2,D3), LC/MS/MS is recommended: order code 21684 (patients >2yrs). Comment [facility] Comment: See Note 1 Note 1 For additional information, please refer to http://education.Draft.Pixate/faq/FHG786 (This link is being provided for informational/ educational purposes only.) 03/25/2024 9:48 AM ACCOUNT AUDITOR 03/25/2024 9:49 AM ACCOUNT AUDITOR Narrative [facility] - 03/27/2024 12:44 AM ACCOUNT AUDITOR FASTING:YES Patient Report History copied from and originally reported to client [id number] in site ([facility]) Adrienne VALDEZ LAB BLOOD ORDERABLES Final Result Performing Organization Address [facility]/ZIP Co de Phone Number [facility] [address] [place] [address] * Erythrocyte sedimentation rate (03/25/2024 9:48 AM ACCOUNT AUDITOR) Erythrocyte sedimentation rate 9 < OR = 30 mm/h [facility] 03/25/2024 9:48 AM ACCOUNT AUDITOR 03/25/2024 9:49 AM ACCOUNT AUDITOR Narrative [facility] - 03/27/2024 12:44 AM ACCOUNT AUDITOR FASTING:YES Patient Report History copied from and originally reported to client [id number] in site ([facility]) Adrienne VALDEZ LAB BLOOD ORDERABLES Final Result Performing Organization Address [facility] Co de Phone Number [facility] [address] [place] [address] * Rheumatoid factor (03/25/2024 9:48 AM ACCOUNT AUDITOR) Rheumatoid factor, quant <10 <14 IU/mL [facility] 03/25/2024 9:48 AM ACCOUNT AUDITOR 03/25/2024 9:49 AM ACCOUNT AUDITOR Narrative [facility] - 03/27/2024 12:44 AM ACCOUNT AUDITOR FASTING:YES Patient Report History copied from and originally reported to client [id number] in site ([facility]) Adrienne VALDEZ LAB BLOOD ORDERABLES Final Result Performing Organization Address City/[facility]/ZIP Co de Phone Number [facility] [address] [place] [address] * CRP (cardiac risk) (03/25/2024 9:48 AM ACCOUNT AUDITOR) [facility] hsCRP 1.1 mg/L [facility] Comment: [...] for Disease Control and Prevention and the [place] [employer]. Circulation 2003; 107(3): 499-511. 03/25/2024 9:48 AM ACCOUNT AUDITOR 03/25/2024 9:49 AM ACCOUNT AUDITOR Narrative [facility] - 03/27/2024 12:44 AM ACCOUNT AUDITOR FASTING:YES Patient Report History copied from and originally reported to client [id number] in site ([facility]) Adrienne VALDEZ LAB BLOOD ORDERABLES Final Result [facility] [address] [place] [address] * T4, free (03/25/2024 9:48 AM ACCOUNT AUDITOR) Pathologist [facility] Free T4 1.6 0.8 - 1.8 ng/dL [facility] 03/25/2024 9:48 AM ACCOUNT AUDITOR 03/25/2024 9:49 AM ACCOUNT AUDITOR Narrative [facility] - 03/27/2024 12:44 AM ACCOUNT AUDITOR FASTING:YES Patient Report History copied from and originally reported to client [id number] in site ([facility]) us Adrienne VALDEZ LAB BLOOD ORDERABLES Final Result [facility] [address] [address] [place] [address] * (ABNORMAL) Comprehensive metabolic panel (03/25/2024 9:48 AM ACCOUNT AUDITOR) Glucose 98 65 - 99 mg/dL [facility] [...] U/L [facility] 03/25/2024 9:48 AM ACCOUNT AUDITOR 03/25/2024 9:49 AM ACCOUNT AUDITOR Narrative [facility] - 03/27/2024 12:44 AM ACCOUNT AUDITOR FASTING:YES Patient Report History copied from and originally reported to client [id number] in site (ST) us Adrienne VALDEZ LAB BLOOD ORDERABLES Final Result [facility] [address] [address] [place] [address] * Vitamin D 25 hydroxy (03/25/2024) SCRIBED 25-OH Vitamin D 58 30 - 100 ng/mL EXTERNAL LAB Blood 03/25/2024 us Mi Prescott NP LAB BLOOD ORDERABLES Patricia l Result Performing Organization Address [facility] Co de Phone Number EXTERNAL LAB * TSH (03/25/2024) Scribed TSH 2.07 0.40 - 4.50 mcU/mL EXTERNAL LAB Blood 03/25/2024 us Mi Prescott NP LAB BLOOD ORDERABLES Patricia l Result Performing Organization Address [facility] Co de Phone Number EXTERNAL LAB * T4, free (03/25/2024) SCRIBED T4, Free 1.6 0.8 - 1.8 mcg/dL EXTERNAL LAB Blood 03/25/2024 us Misusi Prescott SOLAR INSTALLER LAB BLOOD ORDERABLES Patricia l Result Performing Organization Address City/[facility]/ZIP Co de Phone Number EXTERNAL LAB * [...] Units/L EXTERNAL LAB SCRIBED eGFR in NonAfrican [place]ican 74 >=60 - NA EXTERNAL LAB Blood 03/25/2024 us Mi Prescott NP LAB BLOOD ORDERABLES Patricia live Result EXTERNAL LAB from Last 3 Months Insurance [facility] Address: [facility] [id number] [place] [address] [facility] [employer] Care Teams Brass Pickler Relationship Specialty Start Date End Date Adrienne Pereira PA [address] [place] [phone] PCP - General Physician Channel Program Manager 01/07/24
--- OUTSIDE RECORDS SUMMARY | 2024-06-01 18:58 | XMS_ITS | Encounter Summary ---
Author Organization [facility] Address [address] [place] [address] Care Team Providers Care Liquor Gallery Operator Name Role Phone Dm Villanueva MD Primary [facility] Julio Giron MD Primary Care Provider [phone] Ayad Garcia MD Primary Care Provider [phone] Encounter Details Date Type Department Care Team (Late st Contact Info) Description 09/03/2017 Abstract [facility] CONVERSION [address] [place] [address] , Beatriz Chandra MD Social History Tobacco Use Types Packs/Day Years Used Date Smoking Tobacco: Never Assessed Comments Unknown Sex and Gender Information Value Date Recorded Sex Assigned at Not on file Legal Sex Female 11:33 PM CDT Gender Identity Female 03/20/2021 5:50 PM PIE DOUGH ROLLER Sexual Orientation Straight 03/20/2021 5: 50 PM PIE DOUGH ROLLER documented as of this encounter Plan of Treatment Not on file documented as of this encounter Visit Diagnoses Not on filedocumented in this encounter Care Teams Liquor Gallery Operator Relationship Specialty Start Date End Date Dm Villanueva MD PCP - General INTERNAL MEDICINE 01/29/18 12/25/20 Julio Giron MD PCP - General INTERNAL MEDICINE 12/26/20 10/08/21 Ayad Garcia MD [address] [place] [id number] PCP - General FAMILY PRACTICE 10/09/21 documented as of this encounter
--- OUTSIDE RECORDS SUMMARY | 2024-06-01 18:58 | XMS_ITS | Encounter Summary ---
Author Organization [facility] Address [facility] [place] [address] Care Team Providers Care Auto Specialty Services Manager Name Role Phone Dm Villanueva MD Primary Care Provider [facility] Julio Farmer MD Primary Care Provider [phone] Ayad Garcia MD Primary Care Provider [phone] Encounter Details Date Type Department Care Team (Late st Contact Info) Description 08/22/2019 MyChart Message Enc [facility] [address] [place], [place] [id number] [place] [address] [place], [place] [id number] RE: Test Results Social History Tobacco Use [...] CDT Gender Identity Female 03/20/2021 5:50 PM PRODUCER Sexual Orientation Straight 03/20/2021 5: 50 PM PRODUCER COVID-19 Exposure Response Date Recorded In the last month, have you been in contact with someone who was confirmed or suspected to have Coronavirus / COVID-19? No / Unsure 08/13/2019 7:48 AM CDT documented as of this encounter Plan of Treatment Not on file documented as of this encounter Visit Diagnoses Not on filedocumented in this encounter Care Teams Auto Specialty Services Manager Relationship Specialty Start Date End Date Dm Villanueva MD PCP - General INTERNAL MEDICINE 01/29/18 12/25/20 Julio Giron MD PCP - General INTERNAL MEDICINE 12/26/20 10/08/21 Ayad Garcia MD [address] [place] [id number] PCP - General FAMILY PRACTICE 10/09/21 documented as of this encounter
--- OUTSIDE RECORDS SUMMARY | 2024-06-01 18:58 | XMS_ITS | Clinical Summary ---
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
--- OUTSIDE RECORDS SUMMARY | 2024-06-01 18:58 | XMS_ITS | Clinical Summary ---
Author Organization [facility] Address [address] [place] [address] Phone Care Team Providers Care Tire Care Manager Name Role Phone Stoney Barajas MD Unavailable [phone] Adrienne Pereira I PAC Primary Care Provider [phone] Allergies Active Allergy Reactions Criticality Noted Date [...] Covid-19 Vaccine, Vector-nr, Rs-ad26, Pf, 0.5 Ml ([employer] 07/10/2020 Influenza Vaccine, MDCK,quadrivalent, pres free 12/04/2019 [...] on file Legal Sex Female 12:37 PM 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 OPERATOR Gender Identity Not on file Sexual Orientation Not on file Last Filed Vital Signs Vital Sign Reading Time Taken Comments Blood Pressure 130/86 03/22/2022 1:40 PM GLEASON OPERATOR Pulse 83 03/22/2022 1:40 PM GLEASON OPERATOR Temperature 36.7 C (98 F) 03/22/2022 1:40 PM GLEASON OPERATOR Respiratory Rate 18 03/22/2022 1:40 PM GLEASON OPERATOR Oxygen Saturation 96% 03/22/2022 1:40 PM GLEASON OPERATOR Inhaled Oxygen Concentration - - Weight 77.6 kg (171 lb) 03/22/2022 1:40 PM GLEASON OPERATOR Height 152.4 cm (5') 03/22/2022 1:40 PM GLEASON OPERATOR Body Mass Index 33.4 03/22/2022 1:40 PM GLEASON OPERATOR Plan of Treatment Health Maintenance Due Date [...] topic Insurance MEDICARE C [employer] Care Teams Tire Care Manager Relationship Specialty Start Date End Date Adrienne Pereira PAC [address] [place] [id number] PCP - General Physician Photonics Engineer 01/28/23 Stoney Barajas MD [address] [place] [phone] Consulting Physician Oncology 01/28/23
--- OUTSIDE RECORDS SUMMARY | 2024-06-01 18:58 | XMS_ITS | Encounter Summary ---
Author Organization [facility] Address [address] [place] [address] Care Team Providers Care Supervisor Scrap Preparation Name Role Phone Dm Villanueva MD [facility] Julio Giron MD Primary Care Provider [phone] Ayad Garcia MD Primary Care Provider [phone] Encounter Details Date Type Department Care Team (Late st Contact Info) Description 06/01/2015 Abstract [facility] CONVERSION [address] [place] [address] , Beatriz Chandra MD Social History Tobacco Use Types Packs/Day Years Used Date Smoking Tobacco: Never Assessed Comments Unknown Sex and Gender Information Value Date Recorded Sex Assigned at Not on file Legal Sex Female 11:33 PM CDT Gender Identity Female 03/20/2021 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
--- OUTSIDE RECORDS SUMMARY | 2024-06-01 18:58 | XMS_ITS | Encounter Summary ---
Author Organization [facility] Address [address] [place] [address] Care Team Providers Care Spa Concierge Name Role Phone Dm Villanueva MD 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
--- OUTSIDE RECORDS SUMMARY | 2024-06-01 18:58 | XMS_ITS | Referral Summary ---
Author Organization [facility] at the Medical Office Building Address [address] [place] [address] Care Team Providers Care Distribution Transformer Assembler Name Role Phone Adrienne Pereira Primary Care Provider [phone] Encounters Date Type Department Care Team Description 06/01/2024 Results Follow-Up [facility] Diabetes and Endocrinology [address] [place] [phone] Mi Prescott NP 05/29/2024 1:20 PM CDT - 05/29/2024 11:59 PM CDT Hospital Encounter [facility] Respiratory [facility] [place] [address] SOB (shortness of breath) Discharge Disposition: Discharge to home or self care 05/26/2024 Telephone [facility] General Neurology [address] [facility] Advanced Medicine 6th [place] [address] [place] [phone] Snehal Schroeder RN 05/19/2024 Telephone [facility] Scheduling [address] [place] [address] Kristal Caldera CMA 05/11/2024 Results Follow-Up [facility] General Neurology [address] [facility] 6th [address] [place] [phone] Byron Burgess Jr., MD 05/11/2024 11:15 AM BUFFING LINE SET UP WORKER Lab [facility] [address] [place] [phone] Pain in right foot 05/11/2024 8:30 AM BUFFING LINE SET UP WORKER Office Visit [facility] General Neurology [address] [facility] 6th [place] [address] [place] [phone] Byron Burgess Jr., MD Imbalance (Primary Dx); Pain in right foot; Abnormal response to nerve stimulation; Memory loss; Obesity (BMI 30.0-34.9) 05/06/2024 Orders Only [facility] Hematology [address] [facility] Floor 6 [place] [phone] Noelle Stevens 05/05/2024 2:00 PM BUFFING LINE SET UP WORKER Office Visit [facility] Medical Group Diabetes and Endocrinology [address] [place] [phone] Mi Prescott NP Hypocalcemia (Primary Dx); Postoperative hypothyroidism; Vitamin D deficiency 04/21/2024 Orders Only [facility] Diabetes and Endocrinology [address] [place] [phone] Mi Prescott NP Hypocalcemia 04/16/2024 Telephone [facility] Pulmonology [address] [place] [phone] Parish Galarza MD 04/16/2024 9:25 AM BUFFING LINE SET UP WORKER - 04/16/2024 11:59 PM BUFFING LINE SET UP WORKER Hospital Encounter [facility] Diagnostic Imaging [address] [place] [address] SOB (shortness of breath) Discharge Disposition: Discharge to home or self care 04/16/2024 8:30 AM BUFFING LINE SET UP WORKER Office Visit [facility] Pulmonology [address] [place] [address] [place] [phone] Parish Galarza MD Obesity, unspecified class, unspecified obesity type, unspecified whether serious comorbidity present (Primary Dx); Cough, unspecified type; SOB (shortness of breath); Nicotine dependence, cigarettes, in remission; Snoring 04/02/2024 Orders Only [facility] Diabetes and Endocrinology [address] [place] [phone] Mi Prescott NP 03/25/2024 Orders Only LAB INTERFACE [id number] Adrienne Pereira PA 03/25/2024 12:17 PM BUFFING LINE SET UP WORKER - 03/25/2024 11:59 PM BUFFING LINE SET UP WORKER Hospital Encounter [id number] [address] [facility] [address] [place] [phone] Right foot pain Discharge Disposition: Discharge to home or self care 03/25/2024 1:00 PM BUFFING LINE SET UP WORKER Office Visit [facility] Orthopaedic Surgery [address] [facility] [address] [place] [phone] Maycol Koehler NP Right foot pain (Primary Dx); Pain in right foot; Abnormal response to nerve stimulation 03/09/2024 Orders Only [facility] Medical Group Diabetes and Endocrinology [address] [place] [phone] Mi Prescott NP Vitamin D deficiency (Primary [...] 03/19/2023 Assessment & Plan (05/05/2024 4:03 PM BUFFING LINE SET UP WORKER): Chronic problems. Currently taking levothyroxine 137mcg daily. [...] hypo/hyperthyroidism. Assessment & Plan (03/19/2023 12:54 PM BUFFING LINE SET UP WORKER): Patient currently on levothyroxine 112 mcg oral daily Recheck thyroid function test today and further plans based on it Hypocalcemia 03/19/2023 Assessment & Plan (05/05/2024 4:04 PM BUFFING LINE SET UP WORKER): Chronic problem. Currently taking Calcitrol 0.5mg daily as well as Tums approx 10/day (500 [id number] tabs). Was supposed to increase calcitriol to [...] increase your PTH level. I suggested an [id number] Magnesium supplement to take in the evening with medications to see if it would help with leg pain & lower PTH level. Assessment & Plan (03/19/2023 12:55 PM BUFFING LINE SET UP WORKER): Hypocalcemia, poor absorption, vitamin-D deficiency Continue current calcitriol and calcium supplementation Recheck levels today and further plans based on it Vitamin D deficiency 03/19/2023 Assessment & Plan (05/05/2024 4:08 PM BUFFING LINE SET UP WORKER): Chronic problem. Currently taking ergocalciferol 50,000IU weekly. [...] time. Assessment & Plan (03/19/2023 12:54 PM BUFFING LINE SET UP WORKER): Patient currently on replacement therapy Recheck levels [...] on file Legal Sex Female 11:54 PM BUFFING LINE SET UP WORKER Gender Identity Female 01/11/2024 3:47 AM CDT Sexual Orientation Straight 01/11/2024 3: 47 AM CDT Last Filed Vital Signs Vital Sign Reading Time Taken Comments Blood Pressure 142/82 05/11/2024 8:19 AM BUFFING LINE SET UP WORKER Pulse 66 05/11/2024 8:19 AM BUFFING LINE SET UP WORKER Temperature 36.4 C (97.5 F) 04/16/2024 8:33 AM BUFFING LINE SET UP WORKER Respiratory Rate 18 05/05/2024 1:51 PM BUFFING LINE SET UP WORKER Oxygen Saturation 98% 04/16/2024 8:33 AM BUFFING LINE SET UP WORKER Inhaled Oxygen Concentration - - Weight 95.7 kg (211 lb) 05/11/2024 8:19 AM BUFFING LINE SET UP WORKER Height 149.9 cm (4' 11 ) 05/11/2024 8:19 AM BUFFING LINE SET UP WORKER Body Mass Index 42.62 05/11/2024 8:19 AM BUFFING LINE SET UP WORKER Plan of Treatment Not on file Procedures [...] TO DERRICK QUANTITATIVE Routine 05/11/2024 10:13 AM BUFFING LINE SET UP WORKER Pain in right foot ANTI-DOUBLE STRANDED DNA ANTIBODIES Routine 05/11/2024 10:13 AM BUFFING LINE SET UP WORKER Pain in right foot ASHLYN ANTIBODY EVALUATION WITH REFLEX Routine 05/11/2024 10:13 AM BUFFING LINE SET UP WORKER Pain in right foot XR CHEST PA LATERAL 2 VIEWS Schedule Routine, Read Routine (OP Routine) 04/16/2024 9:42 AM BUFFING LINE SET UP WORKER SOB (shortness of breath) XR FOOT RIGHT 3 OR MORE VIEWS Schedule Routine, Read Routine (OP Routine) 03/25/2024 1:16 PM BUFFING LINE SET UP WORKER Right foot pain COPY(IES) SENT TO: Routine 03/25/2024 9: 52 AM BUFFING LINE SET UP WORKER CBC WITH AUTO DIFFERENTIAL Routine 03/25/2024 9:52 AM BUFFING LINE SET UP WORKER Iron deficiency anemia, unspecified iron deficiency anemia type FERRITIN Routine 03/25/2024 9:52 AM BUFFING LINE SET UP WORKER Iron deficiency anemia, unspecified iron deficiency anemia type IRON PROFILE W/ IBC Routine 03/25/2024 9 :52 AM BUFFING LINE SET UP WORKER Iron deficiency anemia, unspecified iron deficiency anemia type VITAMIN D 25 HYDROXY Routine 03/25/2024 9:48 AM BUFFING LINE SET UP WORKER TSH W/REFL FT4 Routine 03/25/2024 9:48 AM BUFFING LINE SET UP WORKER T4, FREE Routine 03/25/2024 9:48 AM BUFFING LINE SET UP WORKER ANACHOICE(R) SPECIFIC AB CASCADING REFLEX Routine 03/25/2024 9:48 AM BUFFING LINE SET UP WORKER CYCLIC CITRUL PEPTIDE ANTIBODY, IGG Routine 03/25/2024 9:48 AM BUFFING LINE SET UP WORKER CRP, HIGH SENSITIVITY Routine 03/25/2024 9:48 AM BUFFING LINE SET UP WORKER RHEUMATOID FACTOR Routine 03/25/2024 9:4 8 AM BUFFING LINE SET UP WORKER ERYTHROCYTE SEDIMENTATION RATE Routine 03/25/2024 9:48 AM BUFFING LINE SET UP WORKER COMPREHENSIVE METABOLIC PANEL Routine 03/25/2024 9:48 AM BUFFING LINE SET UP WORKER T4, FREE Routine 03/25/2024 Acquired hypothyroidism TSH Routine 03/25/2024 Acquired hypothyroidism VITAMIN D 25 HYDROXY Routine 03/25/2024 Vitamin D deficiency COMPREHENSIVE METABOLIC PANEL Routine 03/25/2024 Hypocalcemia from Last 3 Months Results * COPY(IES) SENT TO: (05/26/2024 9:52 AM CDT) COPY(IES) SENT TO: [facility] Comment: [facility] [address] [place] [address] 05/26/2024 9:52 AM CDT 05/26/2024 9:56 AM CDT Narrative [facility] - 05/27/2024 4:39 PM CDT FASTING:YES FASTING: YES us Mi Prescott MASONRY SUPERVISOR LAB BLOOD ORDERABLES Patricia l Result [facility] * (ABNORMAL) Calcium, ionized (05/26/2024 9:52 AM CDT) Calcium, Ionized 4.3(L) 4.7 - 5.5 mg/dL [facility] Comment: Your request to have a duplicate copy faxed has been acknowledged. Queued to: [id number] Blood 05/26/2024 9:52 AM CDT 05/26/2024 9:56 AM CDT Narrative [facility] - 05/27/2024 4:39 PM CDT FASTING:YES FASTING: YES Mi Prescott MASONRY SUPERVISOR LAB BLOOD ORDERABLES Patricia live Result Performing Organization Address [facility] Co de Phone Number [facility] [address] [place] [address] * (ABNORMAL) PTH (05/26/2024 9:52 AM CDT) Parathyroid hormone, intact 15(L) 16 - 77 pg/mL [facility] Comment: Interpretive Guide Intact PTH Calcium ------- Normal Parathyroid Normal Normal Hypoparathyroidism Low or Low Normal Low Hyperparathyroidism Primary Normal or High High Secondary High Normal or Low Tertiary High High Non-Parathyroid Hypercalcemia Low or Low Normal High 05/26/2024 9:52 AM CDT 05/26/2024 9:56 AM CDT Narrative [facility] - 05/27/2024 4:39 PM CDT FASTING:YES FASTING: YES us Mi Prescott MASONRY SUPERVISOR LAB BLOOD ORDERABLES Patricia live Result Performing Organization Address [facility] de Phone Number [facility] [address] [place] [address] * (ABNORMAL) Basic metabolic panel (05/26/2024 9:52 [...] CDT FASTING:YES FASTING: YES us Mi Prescott MASONRY SUPERVISOR LAB BLOOD ORDERABLES Patricia l Result [facility] [address] [place] [address] * DERRICK ab ql w/rflx to DERRICK qn (05/11/2024 10:13 AM BUFFING LINE SET UP WORKER) DERRICK Negative Comment: Interpretive Data Normal range [...] on 2019. Blood 05/11/2024 10:1 3 AM BUFFING LINE SET UP WORKER 05/11/2024 10:47 AM BUFFING LINE SET UP WORKER Byron Burgess Jr., MD LAB BLOOD ORDERABL ES Final Result Performing Organization Address [facility] de Phone Number [facility] [place] [address] * Anti-double stranded DNA abs (05/11/2024 10:13 AM BUFFING LINE SET UP WORKER) dsDNA Ab <1.0 <=4.0 IUnits/mL Comment: Interpretive Data Negative: < or = 4 IUnits/mL Indeterminate: 5 - 9 IUnits/mL Positive: > or = 10 IUnits/mL Current interpretive data was last revised on 2016. Blood 05/11/2024 10:1 3 AM BUFFING LINE SET UP WORKER 05/11/2024 10:47 AM BUFFING LINE SET UP WORKER Byron Burgess Jr., MD LAB BLOOD ORDERABL ES Final Result Performing Organization Address [facility] de Phone Number [facility] [place] [address] * ASHLYN ab eval w/reflex (05/11/2024 10:13 AM BUFFING LINE SET UP WORKER) Pathologist [facility] ASHLYN ab Negative Negative Comment: Interpretive Data Positive Screens will be reflexed to specific testing for Antibodies against the following antigens: Vielka-1 Ab, MANUFACTURING SALES REPRESENTATIVE Ab, Scl-70 Ab, Greene Ab, SS-A/Ro Ab, and SS- B/La Ab. Further testing for dsDNA, Centromere, or Ribosomal P antibodies is suggested in patient with a positive screen and negative specific antibodies. Current interpretive data was last revised on 2022. Blood 05/11/2024 10:1 3 AM BUFFING LINE SET UP WORKER 05/11/2024 10:47 AM BUFFING LINE SET UP WORKER Byron Burgess Jr., MD LAB BLOOD ORDERABL ES Final Result Performing Organization Address [facility] de Phone [place] [address] * XR Chest Pa Lateral 2 Views (04/16/2024 9:42 AM BUFFING LINE SET UP WORKER) Anatomical Region Laterality Modality Body, Chest N/A Computed Radiogr aphy 04/20/2024 11:2 2 AM BUFFING LINE SET UP WORKER Narrative 04/20/2024 11:23 AM BUFFING LINE SET UP WORKER EXAM DESCRIPTION: XR CHEST PA LATERAL 2 [...] Angel Villanueva M.D. AM T: Report ID: [id number] Reading Location: [place] [address] Procedure Note Angel Villanueva MD - 04/20/2024 [...] Angel Villanueva M.D. AM T: Report ID: [id number] Reading Location: [id number] us Parish Galarza MD IMG XR PROCEDURES Final Resu lt * XR Foot Right 3 or More Views (03/25/2024 1:16 PM BUFFING LINE SET UP WORKER) Anatomical Region Laterality Modality Lower Extremities, Foot Right Computed Radiography 03/25/2024 1:30 PM BUFFING LINE SET UP WORKER Impressions 03/25/2024 1:30 PM BUFFING LINE SET UP WORKER 1. Mild distal right Achilles tendinopathy and small heel spur. 2. Mild right midfoot osteoarthritis. Electronically signed by: Ifeanyi Lewis M.D. Narrative 03/25/2024 1:30 PM BUFFING LINE SET UP WORKER EXAMINATION: XR FOOT RIGHT 3 OR MORE [...] * COPY(IES) SENT TO: (03/25/2024 9:52 AM BUFFING LINE SET UP WORKER) COPY(IES) SENT TO: [facility] Comment: [facility] ADMN [address] [place] [address] 03/25/2024 9:52 AM BUFFING LINE SET UP WORKER 03/25/2024 9:52 AM BUFFING LINE SET UP WORKER Narrative [facility] - 03/26/2024 6:49 AM BUFFING LINE SET UP WORKER FASTING:YES FASTING: YES Rubi Schofield MASONRY SUPERVISOR LAB BLOOD ORDERABLES Final Result [facility] * Iron profile w/ IBC (03/25/2024 9:52 AM BUFFING LINE SET UP WORKER) Pathologist [facility] Iron 96 45 - 160 mcg/dL [facility] TIBC 371 250 - 450 mcg/dL (calc) [facility] Iron saturation 26 16 - 45 % (calc) [facility] Blood 03/25/2024 9:52 AM BUFFING LINE SET UP WORKER 03/25/2024 9:52 AM BUFFING LINE SET UP WORKER Narrative [facility] - 03/26/2024 6:49 AM BUFFING LINE SET UP WORKER FASTING:YES FASTING: YES Rubi Schofield MASONRY SUPERVISOR LAB BLOOD ORDERABLES Final Result Performing Organization Address City/[facility]/ZIP Co de Phone Number [facility] [address] [place] [address] * (ABNORMAL) CBC with auto differential (03/25/2024 9:52 AM BUFFING LINE SET UP WORKER) Pathologist [facility] WBC 4.2 3.8 - 10.8 Thousand/u L [...] [facility] Blood 03/25/2024 9:52 AM BUFFING LINE SET UP WORKER 03/25/2024 9:52 AM BUFFING LINE SET UP WORKER Narrative [facility] - 03/26/2024 6:49 AM BUFFING LINE SET UP WORKER FASTING:YES FASTING: YES Rubi Schofield NP LAB BLOOD ORDERABLES Final Result [facility] [address] [place] [address] * Ferritin (03/25/2024 9:52 AM BUFFING LINE SET UP WORKER) Ferritin 20 16 - 288 ng/mL [facility] Blood 03/25/2024 9:52 AM BUFFING LINE SET UP WORKER 03/25/2024 9:52 AM BUFFING LINE SET UP WORKER Narrative [facility] - 03/26/2024 6:49 AM BUFFING LINE SET UP WORKER FASTING:YES FASTING: YES Rubi Schofield MASONRY SUPERVISOR LAB BLOOD ORDERABLES Final Result [facility] [address] [place] [address] * TSH W/REFL FT4 (03/25/2024 9:48 AM BUFFING LINE SET UP WORKER) Pathologist [facility] TSH 2.07 0.40 - 4.50 mIU/L [facility] 03/25/2024 9:48 AM BUFFING LINE SET UP WORKER 03/25/2024 9:49 AM BUFFING LINE SET UP WORKER Narrative [facility] - 03/27/2024 12:44 AM BUFFING LINE SET UP WORKER FASTING:YES Patient Report History copied from and originally reported to client [id number] in site (ST) Adrienne VALDEZ LAB BLOOD ORDERABLES Final Result [facility] [address] [place] [address] * ANAChoice (R) specific Ab cascading reflex (03/25/2024 9:48 AM BUFFING LINE SET UP WORKER) Pathologist [facility] DERRICK, qual NEGATIVE NEGATIVE [facility] Comment: A negative DERRICK Multiplex indicates the absence of detectable antibodies to component analytes consisting of double stranded DNA (dsDNA), chromatin, ribonucleoprotein (MANUFACTURING SALES REPRESENTATIVE), Greene/MANUFACTURING SALES REPRESENTATIVE (Sm/MANUFACTURING SALES REPRESENTATIVE), Greene (Sm), SS-A, SS-B, Vielka-1, centromere B, Scl-70 and ribosomal P. A negative result should be interpreted in the context of the clinical and laboratory findings and does not rule out autoimmune disease characterized by other autoantibody specificities such as rheumatoid arthritis, autoimmune hepatitis, primary biliary cirrhosis, autoimmune thyroiditis, Hamilton's disease, pernicious anemia, autoimmune neuropathies, vasculitis, celiac disease, and bullous disease. For additional information, please refer to http://education.Vaultive.CalmSea/faq/JVO777 (This link is being provided for informational/ educational purposes only.) 03/25/2024 9:48 AM BUFFING LINE SET UP WORKER 03/25/2024 9:49 AM BUFFING LINE SET UP WORKER Narrative [facility] - 03/27/2024 12:44 AM BUFFING LINE SET UP WORKER FASTING:YES Patient Report History copied from and originally reported to client [id number] in site ([facility]) Adrienne VALDEZ LAB BLOOD ORDERABLES Final Result Performing Organization Address [facility] Co de Phone Number [facility] [address] [place] [address] * Cyclic citrul peptide antibody, IgG (03/25/2024 9:48 AM BUFFING LINE SET UP WORKER) Pathologist [facility] Cyclic citrullinated peptide ab, IgG <16 UNITS [facility] Comment: Reference Range Negative: <20 Weak Positive: 20-39 Moderate Positive: 40-59 Strong Positive: >59 03/25/2024 9:48 AM BUFFING LINE SET UP WORKER 03/25/2024 9:49 AM BUFFING LINE SET UP WORKER Narrative [facility] - 03/27/2024 12:44 AM BUFFING LINE SET UP WORKER FASTING:YES Patient Report History copied from and originally reported to client [id number] in site ([facility]) Adrienne VALDEZ LAB BLOOD ORDERABLES Final Result Performing Organization Address [facility] de Phone Number [facility] [address] [facility] [place] [address] * Vitamin D 25 hydroxy (03/25/2024 9:48 AM BUFFING LINE SET UP WORKER) [facility] Vitamin D 25-OH 58 30 - 100 ng/mL [facility] Comment: Vitamin D Status 25-OH Vitamin D: Deficiency: <20 ng/mL Insufficiency: 20 - 29 ng/mL Optimal: > or = 30 ng/mL For 25-OH Vitamin D testing on patients on D2-supplementation and patients for whom quantitation of D2 and D3 fractions is required, the Quest[facility]ure[facility](TM) 25-OH VIT D, (D2,D3), LC/MS/MS is recommended: order code [id number] (patients >2yrs). Comment [facility] Comment: See Note 1 Note 1 For additional information, please refer to http://education.Vaultive.CalmSea/faq/KCV939 (This link is being provided for informational/ educational purposes only.) 03/25/2024 9:48 AM BUFFING LINE SET UP WORKER 03/25/2024 9:49 AM BUFFING LINE SET UP WORKER Narrative [facility] - 03/27/2024 12:44 AM BUFFING LINE SET UP WORKER FASTING:YES Patient Report History copied from and originally reported to client [id number] in site ([facility]) Adrienne VALDEZ LAB BLOOD ORDERABLES Final Result Performing Organization Address City/[facility]/ZIP Co de Phone Number [facility] [place] [address] [place] [address] * Erythrocyte sedimentation rate (03/25/2024 9:48 AM BUFFING LINE SET UP WORKER) [facility] Erythrocyte sedimentation rate 9 < OR = 30 mm/h [facility] 03/25/2024 9:48 AM BUFFING LINE SET UP WORKER 03/25/2024 9:49 AM BUFFING LINE SET UP WORKER Narrative [facility] - 03/27/2024 12:44 AM BUFFING LINE SET UP WORKER FASTING:YES Patient Report History copied from and originally reported to client [id number] in site ([facility]) Adrienne VALDEZ LAB BLOOD ORDERABLES Final Result Performing Organization Address [facility]/ZIP Co de Phone Number [facility] [address] [place] [address] * Rheumatoid factor (03/25/2024 9:48 AM BUFFING LINE SET UP WORKER) [facility] Rheumatoid factor, quant <10 <14 IU/mL [facility] 03/25/2024 9:48 AM BUFFING LINE SET UP WORKER 03/25/2024 9:49 AM BUFFING LINE SET UP WORKER Narrative [facility] - 03/27/2024 12:44 AM BUFFING LINE SET UP WORKER FASTING:YES Patient Report History copied from and originally reported to client [id number] in site ([facility]) Adrienne VALDEZ LAB BLOOD ORDERABLES Final Result Performing Organization Address [facility] Co de Phone Number [facility] [place] [address] [place] [address] * CRP (cardiac risk) (03/25/2024 9:48 AM BUFFING LINE SET UP WORKER) [facility] hsCRP 1.1 mg/L [facility] [...] for Disease Control and Prevention and the [employer]. Circulation 2003; 107(3): 499-511. 03/25/2024 9:48 AM BUFFING LINE SET UP WORKER 03/25/2024 9:49 AM BUFFING LINE SET UP WORKER Narrative [facility] - 03/27/2024 12:44 AM BUFFING LINE SET UP WORKER FASTING:YES Patient Report History copied from and originally reported to client [id number] in site (ST) Adrienne VALDEZ LAB BLOOD ORDERABLES Final Result [facility] [address] [place] [address] * T4, free (03/25/2024 9:48 AM BUFFING LINE SET UP WORKER) Pathologist [facility] Free T4 1.6 0.8 - 1.8 ng/dL [facility] 03/25/2024 9:48 AM BUFFING LINE SET UP WORKER 03/25/2024 9:49 AM BUFFING LINE SET UP WORKER Narrative [facility] - 03/27/2024 12:44 AM BUFFING LINE SET UP WORKER FASTING:YES Patient Report History copied from and originally reported to client [id number] in site (ST) Adrienne VALDEZ LAB BLOOD ORDERABLES Final Result [facility] [address] [address] [address] * (ABNORMAL) Comprehensive metabolic panel (03/25/2024 9:48 AM BUFFING LINE SET UP WORKER) Glucose 98 65 - 99 mg/dL [facility] [...] U/L [facility] 03/25/2024 9:48 AM BUFFING LINE SET UP WORKER 03/25/2024 9:49 AM BUFFING LINE SET UP WORKER Narrative [facility] - 03/27/2024 12:44 AM BUFFING LINE SET UP WORKER FASTING:YES Patient Report History copied from and originally reported to client [id number] in site ([facility]) us Adrienne VALDEZ LAB BLOOD ORDERABLES Final Result [facility] [address] [address] [facility] [place] [address] * Vitamin D 25 hydroxy (03/25/2024) SCRIBED 25-OH Vitamin D 58 30 - 100 ng/mL EXTERNAL LAB Blood 03/25/2024 us Mi Prescott MASONRY SUPERVISOR LAB BLOOD ORDERABLES Patricia l Result Performing Organization Address [facility] Co de Phone Number EXTERNAL LAB * TSH (03/25/2024) Pathologist [facility] Scribed TSH 2.07 0.40 - 4.50 mcU/mL EXTERNAL LAB Blood 03/25/2024 us Mi Prescott MASONRY SUPERVISOR LAB BLOOD ORDERABLES Patricia l Result Performing Organization Address [facility] Co de Phone Number EXTERNAL LAB * T4, free (03/25/2024) SCRIBED T4, Free 1.6 0.8 - 1.8 mcg/dL EXTERNAL LAB Blood 03/25/2024 us Mi Prescott MASONRY SUPERVISOR LAB BLOOD ORDERABLES Patricia l Result Performing Organization Address City/[facility]/ZIP Co de Phone Number EXTERNAL LAB [...] Units/L EXTERNAL LAB SCRIBED eGFR in NonAfrican Vietnamese 74 >=60 - NA EXTERNAL LAB Blood 03/25/2024 us Mi Prescott NP LAB BLOOD ORDERABLES Patricia live Result EXTERNAL LAB from Last 3 Months Insurance [facility] [employer] [facility] [employer] Care Teams Distribution Transformer Assembler Relationship Specialty Start Date End Date Adrienne Pereira PA [address] [place] [id number] PCP - General Physician Gum Maker 01/07/24
--- OUTSIDE RECORDS SUMMARY | 2024-06-01 18:58 | XMS_ITS | Encounter Summary ---
Author Organization [facility] Address [address] [place] [address] Care Team Providers Care Optical Technician Name Role Phone Ayad Garcia MD Primary Care Provider [phone] Reason for Visit * Reason Onset Date Comments SYMPTOMATIC HYPOCALCEMIA 09/18/[address] BECKFORD Encounter Details Date Type Department Care Team (Late st Contact Info) Description 09/18/2022 Telephone [facility]ly [facility] Admitting [address] [place] [address] [place] [address] [facility] [address] [place] [address] SYMPTOMATIC HYPOCALCEMIA (SPOKE TO DR. [...] Sex Assigned at Female 03/20/2023 3:29 PM [employer] Legal Sex Female 11:25 PM CDT Gender Identity Female 03/20/2023 3:29 PM [employer] Sexual Orientation Straight 03/20/2023 3: 29 PM [employer] [employer] COVID-19 Exposure Response Date Recorded In the last 10 days, have yo u been in contact with someone who was confirmed or suspected to have Coronavirus/COVID-19? No / Unsure 09/18/2022 6:29 AM CDT documented as of this encounter Plan of Treatment Not on file documented as of this encounter Visit Diagnoses Not on filedocumented in this encounter Care Teams Optical Technician Relationship Specialty Start Date End Date Ayad Garcia MD [address] [place] [id number] PCP - General Family Practice 09/18/22 documented as of this encounter
[2024-06-01] MEDS: CALCIUM GLUC 1,000 MG/NS 50 ML 1,000 MG/50 ML BAG 100 MG IVPB (19:04)
--- NOTE | 2024-06-01 20:22 | P.HP_ITS ---
H&P: HPI History of Present Illness Date/Time: 06/01/24 20:22 Chief Complaint: Right facial numbness and droop Narrative: 69-year-old female with a past medical history of gastric bypass procedure, vitamin-D deficiency, postoperative hypothyroidism, B12 deficiency, grade 2 diastolic dysfunction, and chronic hypocalcemia who presented to the ER with right facial numbness and drooping since the . The patient presume that her symptoms were due to recurrent hypocalcemia. She reported that she was chewing extra Tums. In felt that her symptoms may have been getting better. The patient felt that her face was uneven and felt like her tongue was thick. By the facial asymmetry and thicker tongue sensation was abnormal for hypocalcemia. He is her daughter convinced her to go to her primary care physician's office when the patient reported left hand numbness and tingling that is for seemed worse than her usual Raynaud's symptoms. She has chronic peripheral neuropathy which she states she does not know the cause of but she does have chronic spinal stenosis. She has not noticed any increased weakness of her feet. She stated that her right arm had some change in sensation of the right arm but she did not think much of this and again thought it could be due to her hypocalcemia. She has been taking her usual calcitriol and he weekly vitamin-D supplement. She also has noticed is some right-sided visual changes with increased blurring of revision for the last 3 days, frontal headache right greater than left with worsening pain with palpation of the right frontal sinus, change in the color of her sinus drainage from clear rhinorrhea to green. She denies any fevers or chills. She is able to read and comprehend. He he he reports her headache as a 7/10 in intensity. She has a chronic cough that is unchanged from baseline. She reports chronic allergic rhinitis but has not been using her Flonase because she does not like how it smells or runs down the back of her throat. She does report burning and itching in her right eye. She was witnessed to be rubbing her right eye multiple times. She states that she feels like there may be something stuck in her right eye but there is no obvious foreign body on exam. I did not have floor seen stain available to evaluate. Review of Systems 2 Review of Systems: 12 systems were reviewed with pertinent positives and negatives per HPI. Except as documented in the HPI, all other systems were reviewed and are negative. She reports chronic constipation. She uses Colace at home her last bowel movement was yesterday. She has been having urinary urgency but denies dysuria are or hematuria. She reports that she gained all the weight back from a weight loss surgery. She still has issues with frequent nausea vomiting following her weight loss surgery. 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 Batista Lymphedema Bilateral lower extremities Chronic malnutrition Hypogammaglobulinemia Polyarthralgia Cellulitis of toe of right foot Spinal stenosis Mild cervical at C5-6, mild lumbar at L4-5 Campylobacter diarrhea Stomach ulcer Closed fracture of right ankle Dilated bile duct Small intestinal bacterial overgrowth Nausea and vomiting in adult chronic, daily since Bariatric surgery Postherpetic neuralgia Carpal tunnel syndrome on both sides Chronic fatigue Chronic pain syndrome Hypothyroidism (acquired) Other intervertebral disc degeneration, lumbosacral region Personal history of diabetes mellitus resolved with gastric bypass Restless legs syndrome Vitamin D deficiency, unspecified Vitamin B12 deficiency Diastolic dysfunction Echocardiogram August 2018 demonstrated grade 2 diastolic dysfunction with EF is 66 5%, repeat echo May 2022 demonstrated EF of 55-60 with right ventricular dilatation no common of diastolic dysfunction Anxiety Anemia Headache, migraine Psychiatric diagnosis Kidney disease Skin cancer Surgical History Surgical History (Updated 06/02/24 @ 07:12 by Delmy Cross DO) History of total abdominal hysterectomy and bilateral salpingo-oophorectomy (2003) Benign disease History of Magaly-en-Y gastric bypass (2008) History of esophagogastroduodenoscopy (EGD) History of tonsillectomy History of thyroidectomy 2 separate thyroid surgeries for cold nodules with subsequent benign pathology. The patient reports that her hypocalcemia started after her 2nd thyroid surgery History of cholecystectomy Family History Family History Mother Hypertension Family history of diabetes mellitus in first degree relative Family history of lung cancer Family history of heart disease in male family member before age 55 Father Malignant neoplasm of prostate Family history of heart disease in male family member before age 55 Other Family history of malignant neoplasm of breast Social History Social History (Updated 06/02/24 @ 07:12 by Delmy Cross DO) Social History: She reports that she has been since 2020. She was for 35 years prior to her most recent opens that. She has 1 daughter. She smoked 1 pack of cigarettes per day for 17 years but quit 1987. She used to occasionally drink alcohol on holidays in the small amounts. She denies illicit substance use. 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 Code status: DNR/DNI Surrogate decision maker: Josey (Daughter) Smoking packs per day: 1 Smoking cigarettes per day: 20.0 Years smoked: 15 Smoking pack-years: 15.00 Smoking status: Former smoker Second hand tobacco smoke exposure: No Smoking end date: 03/11/88 Alcohol intake: never Substance use: never Substance use type: does not use Do You Feel Safe in your Home?: Yes Lack of Transportation: No Lack of Food: Never True Current Housing: I Have Housing Concerned About Future Housing: No Difficulty Paying Gas/Electric Bills: No Difficulty Paying for Meds: No Currently Unemployed: No Education: Trade/Vocational Certificate Difficulty w/ Childcare or Family Care: No Living arrangements: alone Occupation/Education: retired Gender identity (if verbalized by the patient): Female Spiritual care concerns: No Meds Home Medications and Allergies Home Medications ?Medication ?Instructions ?Recorded ?Confirmed ?Type nitroglycerin 0.4 mg sublingual 0.4 mg sublingual Q5M PRN chest 04/26/22 06/01/24 Rx tablet pain #10 tabs calcium carbonate (Calcium 500) 1,500 mg PO TID 09/25/22 06/01/24 History potassium chloride 20 mEq 20 meq PO DAILY PRN edema #90 tabs 12/03/23 06/01/24 Rx tablet,extended release albuterol sulfate 90 mcg/actuation 2 puff inhalation Q4-6H PRN 02/11/24 06/01/24 Rx aerosol inhaler shortness of breath or wheezing #8.5 grams folic acid 1 mg tablet 1 mg PO DAILY #90 tabs 02/11/24 06/01/24 Rx ketoconazole 2 % topical cream 1 applic topical BID #60 grams 02/13/24 06/01/24 Rx tizanidine 4 mg capsule 4 mg PO BID PRN muscle spasticity 02/18/24 06/01/24 Rx #60 caps ergocalciferol (vitamin D2) 1,250 1,250 mcg PO WEEKLY #12 caps 03/24/24 06/01/24 Rx mcg (50,000 unit) capsule levothyroxine 137 mcg tablet 137 mcg PO DAILY #90 tabs 03/24/24 06/01/24 Rx ropinirole 4 mg tablet 4 mg PO TID #270 tabs 03/24/24 06/01/24 Rx furosemide 20 mg tablet 20 mg PO BID #180 tabs 03/25/24 06/01/24 Rx alprazolam 1 mg tablet 1 mg PO BID PRN anxiety #60 tabs 04/14/24 06/01/24 Rx loratadine-pseudoephedrine ER 10 1 tablet PO DAILY #30 tabs 04/14/24 06/01/24 Rx mg-240 mg tablet,extended [id number] (Claritin-D 24 Hour) hydrocodone 10 mg-acetaminophen 1 tablet PO Q6H PRN DDD L/S spine, 05/28/24 06/01/24 Rx 325 mg tablet Polyarthralgias due to hypocalcemia #105 tabs calcitriol 0.5 mcg capsule 0.5 mcg PO Q12H 06/01/24 06/01/24 History ondansetron 4 mg disintegrating 4 mg PO Q6H PRN nausea and vomiting 06/01/24 06/01/24 History tablet Allergies Allergy/AdvReac Type Severity Reaction Status Date / Time ipratropium Allergy Severe nervousness Verified 04/28/24 10:20 pregabalin (From Lyrica) Allergy Swelling Verified 04/28/24 10:20 of the legs albuterol AdvReac Severe Short of Verified 04/28/24 10:20 breath amitriptyline AdvReac Severe Nervousness Verified 04/28/24 10:20 dexamethasone AdvReac Severe short of Verified 04/28/24 10:20 breath duloxetine AdvReac Severe Anxiety Verified 04/28/24 10:20 prednisone AdvReac Severe short of Verified 04/28/24 10:20 breath topiramate AdvReac Severe Nausea and Verified 04/28/24 10:20 Vomiting fluoxetine (From Prozac) AdvReac Webster Verified 04/28/24 10:20 ?funny metoclopramide (From Reglan) AdvReac Anxious Verified 04/28/24 10:20 and jittery paroxetine (From Paxil) AdvReac Webster Verified 04/28/24 10:20 funny? sertraline AdvReac Jittery Verified 04/28/24 10:20 Vital Signs Vital Signs - 24 hr 06/01/24 14:59 06/01/24 16:30 06/01/24 16:31 Temperature 97.6 F Pulse Rate 73 63 72 Respiratory Rate 18 17 Blood Pressure 147/75 H 137/77 Pulse Oximetry 100 100 Oxygen Delivery Room Air 06/01/24 16:41 06/01/24 18:48 Temperature Pulse Rate 70 Respiratory Rate 20 Blood Pressure 138/80 Pulse Oximetry 100 100 Oxygen Delivery Exam 2 Narrative: Weight 95.6 kg BMI 42.6 Const: Other: Morbidly obese BMI greater 40, no acute distress, appears older than stated age HENMT: Other: Mucous membranes are tacky with areas of discolored plaquing to the tongue, head is normocephalic atraumatic Eyes: Other: Bilateral cataracts noted, no conjunctival pallor, no scleral icterus Neck: Other: Large neck circumference, no palpable thyroid Resp: Other: Clear to auscultation bilaterally, no increased work of breathing Cardio: Other: Regular rate, regular rhythm, 2+ bilateral radial pedal pulses, no murmur GI: Other: Obese, soft, nontender Back/Spine/Pelvis: Other: Moderate thoracic kyphosis Skin: Other: No pallor, non jaundice Neuro: Other: Alert orient x4, speech is clear, no obvious facial asymmetry, decreased visual acuity right greater than left, pupils are equal and reactive, subjective paresthesias of the right face, equal sensation of bilateral and, no dysmetria of the upper extremities, mild dysmetria of the left lower extremity, no pronator drift Extrem: Other: No pitting edema, moves all extremities equally, 5/5 strength bilateral ore puncher Psych: Other: Anxious, loquacious, pleasant and cooperative, fair judgment and insight H&P: Results Labs Labs: Laboratory Tests 06/01/24 16:56 06/01/24 18:08 06/01/24 06/01/24 06/01/24 16:56 17:24 18:08 WBC 4.7 RBC 4.10 L Hgb 14.1 Hct 42.3 MCV 103.2 H MCH 34.4 H MCHC 33.3 RDW 12.4 Plt Count 201 MPV 9.0 Immature Gran % (Auto) 0.4 Neut % (Auto) 65.5 Lymph % (Auto) 24.0 Archuleta % (Auto) 8.5 Eos % (Auto) 0.8 Baso % (Auto) 0.8 Lymph # (Auto) 1.13 Archuleta # (Auto) 0.4 Eos # (Auto) 0.0 Baso # (Auto) 0.0 Abs Immat Gran (auto) 0.02 Absolute Neuts (auto) 3.1 Absolute Nucleated RBC 0.000 Nucleated RBC % 0.0 PT 13.5 INR 1.0 APTT 28.8 Sodium 139 Potassium 4.1 Chloride 103 Carbon Dioxide 31 H Anion Gap 5 BUN 15 D Creatinine 0.80 Estim Creat Clear Calc Not Reportable Estimated GFR > 60 Glucose 93 Calcium 7.8 L Ionized Calcium Arash Pending Phosphorus 3.9 Magnesium 2.0 Total Bilirubin 0.4 AST 38 H ALT 18 Alkaline Phosphatase 82 Troponin I < 0.012 Total Protein 7.0 Albumin 4.4 TSH 5.930 H Urine Color Yellow Urine Appearance Clear Urine pH 7.5 Ur Specific [place] 1.006 Urine Protein Negative Urine Glucose (UA) Negative Urine Ketones Negative Ur Blood (Man) Negative Urine Nitrate Negative Urine Bilirubin Negative Urine Urobilinogen 0.2 Leukocyte Esterase Rfl 1+ H Urine RBC 0-2 Urine WBC 6-10 H Ur Squamous Epith Cells None seen Urine Bacteria None seen Urine Casts 0-[address] 06/01/24 15:17 IMPRESSION: No acute intracranial process. EKG: Personally reviewed normal sinus rhythm normal intervals. Cardiology interpretation pending All imaging and EKGs personally reviewed and interpreted. And unless stated otherwise agree with radiologic and cardiology interpretation. Assessment and Plan Assessment and plan (1) Right facial numbness: Code(s): R20.0 - Anesthesia of skin Status: Acute (2) Hypocalcemia: Code(s): E83.51 - Hypocalcemia Status: Acute (3) Hypothyroidism (acquired): Code(s): E03.9 - Hypothyroidism, unspecified Status: Acute (4) Vitamin D deficiency, unspecified: Code(s): E55.9 - Vitamin D deficiency, unspecified Status: Acute (5) Vitamin B12 deficiency: Code(s): E53.8 - Deficiency of other specified B group vitamins Status: Acute (6) Elevated MCV: Code(s): R71.8 - Other abnormality of red blood cells Status: Acute Plan Patient has right-sided facial paresthesias and right facial droop concerning for possible recent CVA. Patient is outside of window for intervention as onset of symptoms for 3 days ago. Patient has had progressive improvement in symptoms since that time. Less likely to be due to hypocalcemia given patient's calcium level is near her baseline and is only minimally below the cutoff for normal. Will place patient on calcium citrate t.i.d.. If patient has difficulty with tablets for calcium she can try [id number] calcium powders for bariatric supplementation (an example of a brand is UPcal). Will check B12 and folic acid levels in a.m. as this could be associated with paresthesias and patient is at high risk for persistent deficiency of these vitamins given her prior bariatric surgery. Specially in the setting of macrocytosis. Given concern for possible recent CVA will place patient on neuro checks q.4 hours and monitor on telemetry for possible evidence of arrhythmia. Will obtain an MRI of the brain with and without contrast in a.m.. Will check echocardiogram with bubble study and carotid Dopplers. Patient does have a slightly elevated TSH. Will ensure patient has been taking her medications as directed. If so will increase dose of levothyroxine. And repeat TSH in 6 weeks. Will review of the remainder the patient's home medications and resume as clinically appropriate. Patient has been admitted as observation status. Quality VTE Prophylaxis VTE prophylaxis: pharmacologic ordered (Lovenox 40 mg subQ daily.) Hospitalist [facility] Advance Care Plan I have confirmed that the patient's Advanced Care Plan is present, code status is documented, or surrogate decision maker is listed in patient medical record.: Yes Medication Reconciliation I have utilized all available resources to obtain, update and review the patients current medications (includes all prescriptions, OTC, herbals, cannabis, and nutritional supplements).: Yes
--- NOTE | 2024-06-01 21:37 | ADMGEN ---
This patient, Lizzy Baum, was admitted to 2 Medical Room 260-. Patient/family oriented to hospital policies and general routines including ID bracelet, bed and alarms, visiting hours, pain management, procedures, bathroom and other care routines, personal items, smoking policy, room service/diet, and visiting hours. Information on how to activate the Rapid Response Team has been discussed. Patient/Family are encouraged to report perceived risks to care and to ask questions if they do not understand what they are told or what they should do.
[2024-06-02] VITALS (9 sets, daily range): BP systolic 109–119; BP diastolic 68–69; PULSE 72–85; RESP 16–20; TEMP 36.6–37.2; O2SAT 95–99
--- NOTE | 2024-06-02 | ECHO_ITS ---
Patient Info Name: Lizzy Baum Age: 69 years : 1955 Gender: Female Ht: 58 in Wt: 201 lbs BSA: 1.99 m2 HR: 73 bpm BP: 119 / 69 mmHg Heart Rhythm: Sinus Rhythm Technical Quality: Fair Exam Date: 06/02/2024 9:42 AM Exam Location: Echo Lab Patient Status: Inpatient Admit Date: 06/01/2024 Staff Ordering Physician: Delmy Cross DO Software Packager: Isabel Higgins RDCS Attending Provider: Emiliana Morrison PA-C Referring Physician: Tay NUÑEZ; Exam Type: CA echo doppler w bubble study Study Info Indications - Facial parasthesias Complete two-dimensional, color flow and Doppler transthoracic echocardiogram is performed with agitated saline. Contrast/Agitated Saline Contrast/Ag. Saline: Agitated Saline Amount: 15.00 ml IV Access Condition: patent with no signs of infiltration Summary 1. Left ventricular chamber dimension is normal. 2. Left ventricular systolic function is normal, estimated at 60-65%. 3. The left ventricular diastolic function is grade I diastolic dysfunction. 4. E/e' 11 is mildly elevated. 5. There is mild aortic valve sclerosis. 6. The mitral valve has mildly calcified annulus. 7. There is mild tricuspid valve regurgitation. 8. No pulmonary hypertension, estimated pulmonary arterial systolic pressure is 24 mmHg. Left Ventricle E/e' 11 is mildly elevated. Left ventricular chamber dimension is normal. Left ventricular systolic function is normal, estimated at 60-65%. The left ventricular diastolic function is grade I diastolic dysfunction. Right Ventricle Right ventricular systolic function is normal and with normal TAPSE 2.2 cm. Right ventricular chamber dimension is normal. Left Atria Left atrial chamber dimension is normal. Right Atria Right atrial chamber dimension is normal. Atrial Septum Agitated saline injection with and without valsalva maneuver opacified right side cardiac chambers without shunt to left side cardiac chambers. Intact interatrial septum visualized by 2D and agitated saline imaging. Aortic Valve The aortic valve is trileaflet. There is mild aortic valve sclerosis. There is no aortic valve stenosis. There is no aortic valve regurgitation. Pulmonic Valve There is no pulmonic regurgitation. Mitral Valve The mitral valve has mildly calcified annulus. There is no mitral valve stenosis. There is no mitral valve regurgitation. Tricuspid Valve There is mild tricuspid valve regurgitation. No pulmonary hypertension, estimated pulmonary arterial systolic pressure is 24 mmHg. Pericardium/Pleural There is no pericardial effusion. Inferior Vena Cava Normal inferior vena cava with >50% collapse upon inspiration consistent with normal right atrial pressure, 5 mmHg. Aorta The aortic root size at the sinus of Valsalva is normal. Left Ventricular Outflow Tract Name Value Normal LVOT 2D LVOT Diameter 2.0 cm LVOT Doppler LVOT Peak Gradient 6 mmHg LVOT Mean Gradient 3 mmHg LVOT VTI 23 cm LVOT VTI/AV VTI Ratio 0.9 LVOT Stroke Volume 74 ml LVOT CO 14.9 l/min LVOT CI 7.5 l/min/m2 Pulmonic Valve Name Value Normal RVOT Doppler RVOT Peak Gradient 2 mmHg PV Doppler PV Peak Gradient 3 mmHg Mitral Valve Name Value Normal MV Doppler MV Decel [place] 300 cm/s2 MV PHT 72 ms MV Area (PHT) 3.1 cm2 4.0-5.0 MV Diastolic Function MV E Peak Velocity 75 cm/s MV A Peak Velocity 97 cm/s MV E/A 0.8 MV Decel Time 248 ms MV Annular TDI MV E/e' (Septal) 13.1 <=8.0 MV E/e' (Lateral) 10.8 <=8.0 MV E/e' (Average) 11.9 Tricuspid Valve Name Value Normal TV Regurgitation Doppler TR Peak Velocity 220 cm/s TR Peak Gradient 18 mmHg Estimated PAP/RSVP RA Pressure 5 mmHg <=5 PA Systolic Pressure 24 mmHg <36 RV Systolic Pressure 24 mmHg <36 Aortic Valve Name Value Normal AV Doppler AV Peak Velocity 126 cm/s AV Peak Gradient 6 mmHg AV Mean Gradient 4 mmHg AV VTI 26 cm AV Area (Cont Eq VTI) 2.8 cm2 >=3.0 AV Area (Cont Eq Evin) 3.0 cm2 AV Regurgitation 2D LVOT Area 3.2 cm2 Ventricles Name Value Normal LV Dimensions 2D/MM IVS Diastolic Thickness (2D) 1.1 cm 0.6-1.0 LVID Diastole (2D) 4.5 cm 3.8-5.2 LVIW Diastolic Thickness (2D) 0.9 cm 0.6-0.9 LVID Systole (2D) 2.9 cm 2.2-3.5 LVOT Diameter 2.0 cm LV Mass (2D Cubed) 160.24 g 67.00-162.00 LV Mass Index (2D Cubed) 81 g/m2 43-95 Relative Wall Thickness (2D) 0.42 LV Fractional Shortening/Ejection Fraction 2D/MM LV Fractional Shortening (2D) 37 % 27-45 LV EF (2D Teicholz) 67 % 54-74 LV Diastolic Volume (4C MOD) 78 ml LV EF (4C MOD) 62 % LV Diastolic Volume (2C MOD) 91 ml LV EF (2C MOD) 71 % LV Diastolic Volume (BP MOD) 89 ml 46-106 LV Diastolic Volume Index (BP MOD) 45 ml/m2 29-61 LV Systolic Volume (BP MOD) 30 ml 14-42 LV Systolic Volume Index (BP MOD) 15 ml/m2 8-24 LV EF (BP MOD) 67 % 54-74 LV Diastolic Length (4C) 8.6 cm LV Systolic Length (4C) 6.6 cm LV Stroke Volume (4C MOD) 48 ml Atria Name Value Normal LA Dimensions LA Volume (4C A-L) 41 ml LA Volume (BP A-L) 42 ml RA Dimensions RA Area (4C) 15.3 cm2 <=18.0 Report Signatures
[2024-06-02] MEDS: rOPINIRole HCL 1 MG TABLET 4 MG PO ×4 (02:11→17:36)
[2024-06-02] MEDS: FLUTICASONE PROPIONATE 0.05% NA SPR 16 GM BTL (*BKC) 1 SPRAY NASAL ×3 (02:11→20:19)
[2024-06-02 05:43] LABS: Alanine Aminotransferase 16 U/L (6-35); Alkaline Phosphatase 68 U/L (38-126); Anion Gap 7 mmol/L (4-12); Aspartate Amino Transferase 36 U/L (14-36); Bilirubin,Total 0.5 mg/dL (0.2-1.3); Blood Urea Nitrogen 13 mg/dL (7-17); Calcium 7.9 mg/dL (8.4-10.2); Carbon Dioxide 28 mmol/L (22-30); Chloride 105 mmol/L (98-107); Estimated Glomerular Filt Rate > 60; Glucose 88 mg/dL (65-110); Potassium 4.2 mmol/L (3.4-5.0); Sodium 140 mmol/L (137-145)
[2024-06-02] MEDS: calcitrioL 0.25 MCG CAPSULE 0.5 MCG PO (08:41)
[2024-06-02] MEDS: LEVOTHYROXINE SODIUM 112 MCG, LEVOTHYROXINE SODIUM 25 MCG 137 MCG PO (08:41)
[2024-06-02] MEDS: AMOXICILLIN/CLAVULANATE K 875-125 MG TAB 1 TABLET PO ×2 (08:41→20:19)
[2024-06-02] MEDS: FUROSEMIDE 20 MG TABLET PO (08:42)
[2024-06-02] MEDS: FOLIC ACID 1 MG TABLET PO (08:42)
[2024-06-02] MEDS: LORATADINE/PSEUDOEPHEDRINE (*CRX) 10/240 MG TABLET ER 24 HR 1 TAB PO (08:42)
[2024-06-02] MEDS: ARTIFICIAL TEARS OPHTH SOLN 15 ML BOTTLE 1 DROP EACH EYE ×2 (08:49→20:19)
[2024-06-02] MEDS: ENOXAPARIN 40 MG/0.4 ML SYRINGE SUB-Q (08:49)
--- NOTE | 2024-06-02 08:52 | P.PNIM_ITS ---
Progress Note: A&P Assessment and Plan (1) Right facial numbness: Code(s): R20.0 - Anesthesia of skin Status: Acute Assessment and Plan: Right facial numbness and drooping since the . Also endorsed right-sided visual changes with increased blurring of vision for the last 3 days, frontal headache right greater than left with worsening pain with palpation of the right frontal sinus. Concern for recent CVA, outside window for intervention given symptom onset on 05/30 - Lipid panel WNL, patient refusing lipitor as she states prior muscle cramping associated with this medication - Head CT: No acute intracranial process - Carotid doppler: < 50% stenosis - MRI: Normal aging brain - Echo LVEF 60-65% with grade I diastolic dysfunction - Plavix 75 mg daily and 81 mg aspirin daily - Initiate stroke protocol, NIH Stroke Scale, neuro's q.4 hours - Monitor CBC, CMP, magnesium, troponin, and lipid profile - Monitor blood pressure - Telemetry monitoring - PT/OT eval and treat - Neurology consulted, appreciate assistance and recommendations (2) Hypocalcemia: Code(s): E83.51 - Hypocalcemia Status: Acute Assessment and Plan: Ca 7.8, ionized calcium pending. Symptoms less likely to be due to hypocalcemia given patient's calcium level is near her baseline and is only minimally below the cutoff for normal. Started on calcium citrate t.i.d.. Remains on calcitriol 0.5 mcg (3) Hypothyroidism (acquired): Code(s): E03.9 - Hypothyroidism, unspecified Status: Acute Assessment and Plan: Patient does have a slightly elevated TSH at 5.930. T4 and T3 ordered Will ensure patient has been taking her medications as directed. If so will increase dose of levothyroxine. And repeat TSH in 6 weeks. (4) Vitamin D deficiency, unspecified: Code(s): E55.9 - Vitamin D deficiency, unspecified Status: Acute Assessment and Plan: On 1250 mcg ergocalciferol weekly (5) Vitamin B12 deficiency: Code(s): E53.8 - Deficiency of other specified B group vitamins Status: Acute Assessment and Plan: Will check B12 and folic acid levels in a.m. as this could be associated with paresthesias and patient is at high risk for persistent deficiency of these vitamins given her prior bariatric surgery. Specially in the setting of macrocytosis. B12 and folate WNL Time Spent With Patient Time with patient: 25 - 35 minutes Subjective Date/time seen: 06/02/24 08:52 Interval history: 69-year-old female with a past medical history of gastric bypass procedure, vitamin-D deficiency, postoperative hypothyroidism, B12 deficiency, grade 2 diastolic dysfunction, and chronic hypocalcemia who presented to the hospital with right facial numbness and drooping since the 05/30. Patient is sitting up comfortably in her chair. She continues to endorse numbness to the right side of her face more so on the right cheek wound, worse along the lip line. She also endorses a slight headache. She has no other complaints denying chest pain, palpitations, nausea/vomiting, abdominal pain. Review of Systems Review of Systems: All systems reviewed & are unremarkable except as noted in HPI and below Exam Narrative: AF HR 76 RR 16 SpO2 99 BP 119/69 General: female in no acute respiratory distress who is nontoxic appearing, sitting up in chair HEENT: Normocephalic. Atraumatic. Pupils equal round reactive to light. Extraocular movement intact. Sclera clear and anicteric. No facial asymmetry. Chest: Lungs are clear to auscultation bilaterally. No wheezes or crackles. CV: Heart was regular rate and rhythm. S1-S2. No murmurs, gallops, or rubs. Abd: Abdomen was soft. Nontender. Nondistended. Positive bowel sounds. No organomegaly or masses. Ext: No clubbing, cyanosis. DP pulses bilaterally. Slight bilateral lower extremity edema. Neuro: Patient is alert and oriented x4. Strength is 5/5 in both upper and lower extremities. No upper extremity drift. Cranial nerves 2-12 are intact. Speech is clear. Numbness to the right side of her face, worse along her lip line. Objective Data Vital Signs Vital Signs: Vital Signs - 24 hr 06/01/24 14:59 06/01/24 16:30 06/01/24 16:31 Temperature 97.6 F Pulse Rate 73 63 72 Respiratory Rate 18 17 Blood Pressure 147/75 H 137/77 Pulse Oximetry 100 100 Oxygen Delivery Room Air 06/01/24 16:41 06/01/24 18:48 06/01/24 18:49 Temperature Pulse Rate 70 65 Respiratory Rate 20 17 Blood Pressure 138/80 138/80 Pulse Oximetry 100 100 100 Oxygen Delivery 06/01/24 20:00 06/01/24 20:00 06/01/24 21:47 Temperature 98.7 F Pulse Rate 61 65 67 Respiratory Rate 17 18 18 Blood Pressure 133/74 133/74 134/77 Pulse Oximetry 98 98 98 Oxygen Delivery 06/01/24 23:50 06/02/24 00:00 06/02/24 04:00 Temperature Pulse Rate 67 76 77 Respiratory Rate 18 Blood Pressure Pulse Oximetry 98 Oxygen Delivery Room Air 06/02/24 04:11 06/02/24 08:00 06/02/24 08:00 Temperature 97.9 F Pulse Rate 73 72 Respiratory Rate 18 Blood Pressure 119/69 Pulse Oximetry 96 96 Oxygen Delivery Room Air Intake/Output Intake/Output: Intake & Output 05/30/24 05/31/24 06/01/24 06/02/24 23:59 23:59 23:59 23:59 Intake Total 150 400 Balance 150 400 Meds/Results Medications: Active Medications Generic Name Dose Route Start Last Admin Trade Name Leonelq PRN Reason Stop Dose Admin Acetaminophen 500 mg 06/01/24 20:36 Acetaminophen 500 Mg Tablet PO Q6H PRN Mild Pain (1-3) or Fever Hydrocodone Bitart/Acetaminophen 1 tab 06/01/24 20:36 Hydrocodone/Acetaminophen (*Crx) 10-325 Mg Tablet PO Q4H PRN Pain Rated 4-10 Alprazolam 1 mg 06/02/24 00:33 Alprazolam (*Crx) 0.5 Mg Tablet PO BID PRN anxiety Amoxicillin/Clavulanate Potassium 1 tablet 06/02/24 09:00 06/02/24 08:41 Amoxicillin/Clavulanate K 875-125 Mg Tab PO 1 tablet Q12HR MYNOR Administration Artificial Tears 1 drop 06/02/24 09:00 Artificial Tears Ophth Soln 15 Ml Bottle EACH EYE QID MYNOR Calcitriol 0.5 mcg 06/02/24 09:00 06/02/24 08:41 Calcitriol 0.25 Mcg Capsule PO 0.5 mcg QAM MYNOR Administration Calcium Citrate 1 tablet 06/02/24 09:00 Calcium Citrate 315 Mg/Vitamin D 6.25 Mcg (250 Units) Tab PO TID MYNOR Docusate Sodium 100 mg 06/02/24 09:00 06/02/24 08:42 Docusate Sodium 100 Mg Capsule PO Not Given Q12HR [facility] Enoxaparin Sodium 40 mg 06/02/24 09:00 Enoxaparin 40 Mg/0.4 Ml Syringe SUB-Q DAILY [facility] Fluticasone Propionate 1 spray 06/02/24 00:40 06/02/24 08:42 Fluticasone Propionate 0.05% Na Spr 16 Gm Btl (*Bkc) NASAL 1 spray Q12HR MYNOR Administration Folic Acid 1 mg 06/02/24 09:00 06/02/24 08:42 Folic Acid 1 Mg Tablet PO 1 mg DAILY [facility] Administration Furosemide 20 mg 06/02/24 09:00 06/02/24 08:42 Furosemide 20 Mg Tablet PO 20 mg BID [facility] Administration Levothyroxine Sodium 112 mcg/ 137 mcg 06/02/24 06:30 06/02/24 08:41 Levothyroxine Sodium 25 mcg PO 137 mcg DAILY@0630 [facility] Administration Loratadine/Pseudoephedrine Sulfate 1 tab 06/02/24 09:00 06/02/24 08:42 Loratadine/Pseudoephedrine (*Crx) 10/240 Mg Tablet Er 24 Hr PO 1 tab DAILY [facility] Administration Miconazole Nitrate 1 applic 06/02/24 09:00 Miconazole Nitrate 2% Cream 30 Gm Tube TOPICAL BID [facility] Perflutren Lipid Microsphere 0 ml 06/01/24 20:43 Perflutren Lipid Microspheres 1.5 Ml Vial Diluted To 10 Ml Total Volume IV PUSH 06/04/24 20:43 ONCE PRN adequate visualization Protocol Potassium Chloride 20 meq 06/02/24 00:33 Potassium Chloride 20 Meq Er Tablet PO DAILY PRN edema Ropinirole HCl 4 mg 06/02/24 00:35 06/02/24 08:42 Ropinirole Hcl 1 Mg Tablet PO 4 mg TID [facility] Administration Tizanidine HCl 4 mg 06/02/24 00:33 Tizanidine Hcl 4 Mg Tablet PO BID PRN muscle spasticity Radiology Results: ITS Impressions Head CT 06/01/24 15:17 IMPRESSION: No acute intracranial process. Labs Labs: Laboratory Results - last 24 hr 06/01/24 06/01/24 06/01/24 16:56 17:24 18:08 WBC 4.7 RBC 4.10 L Hgb 14.1 Hct 42.3 MCV 103.2 H MCH 34.4 H MCHC 33.3 RDW 12.4 Plt Count 201 MPV 9.0 Immature Gran % (Auto) 0.4 Neut % (Auto) 65.5 Lymph % (Auto) 24.0 Door % (Auto) 8.5 Eos % (Auto) 0.8 Baso % (Auto) 0.8 Lymph # (Auto) 1.13 Door # (Auto) 0.4 Eos # (Auto) 0.0 Baso # (Auto) 0.0 Abs Immat Gran (auto) 0.02 Absolute Neuts (auto) 3.1 Absolute Nucleated RBC 0.000 Nucleated RBC % 0.0 PT 13.5 INR 1.0 APTT 28.8 Sodium 139 Potassium 4.1 Chloride 103 Carbon Dioxide 31 H Anion Gap 5 BUN 15 D Creatinine 0.80 Estim Creat Clear Calc Not Reportable Estimated GFR > 60 Glucose 93 Calcium 7.8 L Phosphorus 3.9 Magnesium 2.0 Total Bilirubin 0.4 AST 38 H ALT 18 Alkaline Phosphatase 82 Troponin I < 0.012 Total Protein 7.0 Albumin 4.4 TSH 5.930 H Urine Color Yellow Urine Appearance Clear Urine pH 7.5 Ur Specific [place] 1.006 Urine Protein Negative Urine Glucose (UA) Negative Urine Ketones Negative Ur Blood (Man) Negative Urine Nitrate Negative Urine Bilirubin Negative Urine Urobilinogen 0.2 Leukocyte Esterase Rfl 1+ H Urine RBC 0-2 Urine WBC 6-10 H Ur Squamous Epith Cells None seen Urine Bacteria None seen Urine Casts 0-2 06/02/24 04:57 WBC RBC Hgb Hct MCV MCH MCHC RDW Plt Count MPV Immature Gran % (Auto) Neut % (Auto) Lymph % (Auto) Door % (Auto) Eos % (Auto) Baso % (Auto) Lymph # (Auto) Door # (Auto) Eos # (Auto) Baso # (Auto) Abs Immat Gran (auto) Absolute Neuts (auto) Absolute Nucleated RBC Nucleated RBC % PT INR APTT Sodium 140 Potassium 4.2 Chloride 105 Carbon Dioxide 28 Anion Gap 7 BUN 13 Creatinine 0.73 Estim Creat Clear Calc Not Reportable Estimated GFR > 60 Glucose 88 Calcium 7.9 L Phosphorus Magnesium Total Bilirubin 0.5 AST 36 ALT 16 Alkaline Phosphatase 68 Troponin I Total Protein 7.0 Albumin 4.0 TSH Urine Color Urine Appearance Urine pH Ur Specific [place] Urine Protein Urine Glucose (UA) Urine Ketones Ur Blood (Man) Urine Nitrate Urine Bilirubin Urine Urobilinogen Leukocyte Esterase Rfl Urine RBC Urine WBC Ur Squamous Epith Cells Urine Bacteria Urine Casts Quality VTE Prophylaxis VTE prophylaxis: pharmacologic ordered
[2024-06-02 09:35] LABS: Cholesterol 193 mg/dL (0-200); HDL Direct 66 mg/dL; Triglycerides 95 mg/dL (<150)
[2024-06-02 09:46] LABS: LDL Cholesterol Direct 88 mg/dL
[2024-06-02 10:14] LABS: Total Triiodothyronine (T3) 1.01 NG/ML (0.97-1.69)
[2024-06-02] MEDS: ASPIRIN 81 MG CHEWABLE TABLET PO (11:11)
[2024-06-02] MEDS: CLOPIDOGREL BISULFATE 75 MG TABLET PO (11:12)
[2024-06-02] MEDS: CALCIUM CITRATE 315 MG/VITAMIN D 6.25 MCG (250 UNITS) TAB 1 TABLET PO ×3 (11:12→17:36)
--- NOTE | 2024-06-02 11:47 | PC.NURSE ---
Drea VALDEZ notified that patient refused lipitor.
--- NOTE | 2024-06-02 11:47 | PC.NURSE ---
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
[2024-06-02 14:20] LABS: Folic Acid > 20.0 ng/mL (2.76->20)
[2024-06-02] MEDS: TIZANIDINE HCL 4 MG TABLET PO (20:19)
[2024-06-02] MEDS: HYDROcodone/acetaminophen (*CRX) 10-325 MG TABLET 1 TAB PO (20:23)
[2024-06-02] MEDS: ALPRAZolam (*CRX) 0.5 MG TABLET 1 MG PO (20:23)
[2024-06-03] VITALS: PULSE 70
[2024-06-03 04:00] VITALS: PULSE 74
[2024-06-03 05:21] LABS: Hematocrit 42.9 % (37.0-47.0); Hemoglobin 13.7 g/dL (12.0-15.0); Mean Corpuscular HGB Conc 31.9 g/dl (32-36); Mean Corpuscular Hemoglobin 33.2 pg (26-34); Mean Corpuscular Volume 103.9 fl (80-100); Mean Platelet Volume 8.6 fl (7.4-10.4); Platelet Count Result 200 k/mm3 (150-375); Red Blood Count 4.13 M/mm3 (4.2-5.4); Red Cell Distribution Width 12.1 % (11.5-14.5); White Blood Count 4.4 K/mm3 (4.5-10.0)
[2024-06-03 05:24] LABS: Alanine Aminotransferase 16 U/L (6-35); Albumin Level 4.2 g/dL (3.5-5.1); Alkaline Phosphatase 77 U/L (38-126); Anion Gap 7 mmol/L (4-12); Aspartate Amino Transferase 32 U/L (14-36); Bilirubin,Total 0.7 mg/dL (0.2-1.3); Blood Urea Nitrogen 17 mg/dL (7-17); Calcium 8.6 mg/dL (8.4-10.2); Carbon Dioxide 30 mmol/L (22-30); Chloride 101 mmol/L (98-107); Estimated Glomerular Filt Rate 59; Glucose 97 mg/dL (65-110); Potassium 4.3 mmol/L (3.4-5.0); Sodium 138 mmol/L (137-145)
[2024-06-03] MEDS: LEVOTHYROXINE SODIUM 112 MCG, LEVOTHYROXINE SODIUM 25 MCG 137 MCG PO (05:47)
[2024-06-03 06:00] VITALS: BP 114/66; PULSE 78; RESP 20; TEMP 37.1; O2SAT 95
[2024-06-03 08:00] VITALS: PULSE 70
[2024-06-03] MEDS: FLUTICASONE PROPIONATE 0.05% NA SPR 16 GM BTL (*BKC) 1 SPRAY NASAL (09:31)
[2024-06-03] MEDS: ARTIFICIAL TEARS OPHTH SOLN 15 ML BOTTLE 1 DROP EACH EYE ×2 (09:32→13:01)
[2024-06-03] MEDS: AMOXICILLIN/CLAVULANATE K 875-125 MG TAB 1 TABLET PO (09:33)
[2024-06-03] MEDS: ENOXAPARIN 40 MG/0.4 ML SYRINGE SUB-Q (09:33)
[2024-06-03] MEDS: CLOPIDOGREL BISULFATE 75 MG TABLET PO (09:33)
[2024-06-03] MEDS: FOLIC ACID 1 MG TABLET PO (09:33)
[2024-06-03] MEDS: FUROSEMIDE 20 MG TABLET PO (09:33)
[2024-06-03] MEDS: CALCIUM CITRATE 315 MG/VITAMIN D 6.25 MCG (250 UNITS) TAB 1 TABLET PO ×2 (09:33→13:01)
[2024-06-03] MEDS: calcitrioL 0.25 MCG CAPSULE 0.5 MCG PO (09:34)
[2024-06-03] MEDS: ASPIRIN 81 MG CHEWABLE TABLET PO (09:34)
[2024-06-03] MEDS: DOCUSATE SODIUM 100 MG CAPSULE PO (09:34)
[2024-06-03] MEDS: rOPINIRole HCL 1 MG TABLET 4 MG PO ×2 (09:34→13:01)
[2024-06-03] MEDS: LORATADINE/PSEUDOEPHEDRINE (*CRX) 10/240 MG TABLET ER 24 HR 1 TAB PO (09:34)
[2024-06-03 12:00] VITALS: PULSE 83
[2024-06-03 14:00] VITALS: BP 127/71; PULSE 83; RESP 18; TEMP 36.3; O2SAT 99
--- NOTE | 2024-06-03 15:03 | P.DS_ITS ---
DS: Admitting Diagnosis Discharge Date 06/03 Admitting Diagnosis facila numbness DS: Discharge Diagnosis Discharge Diagnosis (1) Right facial numbness: Code(s): R20.0 - Anesthesia of skin Status: Acute (2) Hypocalcemia: Code(s): E83.51 - Hypocalcemia Status: Acute (3) Hypothyroidism (acquired): Code(s): E03.9 - Hypothyroidism, unspecified Status: Acute (4) Vitamin D deficiency, unspecified: Code(s): E55.9 - Vitamin D deficiency, unspecified Status: Acute (5) Vitamin B12 deficiency: Code(s): E53.8 - Deficiency of other specified B group vitamins Status: Acute DS: Summary Hospital Course Hospital Course: 69-year-old female with a past medical history of gastric bypass procedure, vitamin-D deficiency, postoperative hypothyroidism, B12 deficiency, grade 2 diastolic dysfunction, and chronic hypocalcemia who presented to the hospital with right facial numbness and drooping since the 05/30. Neurology was consulted but there is no services available until - pt didn't want to wait till saturday to be seen. Her facial numbness completely resolved. MRI brain was negative- normal aging brain. Lipid panel WNL CT head negative - Carotid doppler: < 50% stenosis - MRI: Normal aging brain - Echo LVEF 60-65% with grade I diastolic dysfunction - Plavix 75 mg daily and 81 mg aspirin daily pt is agreeable to start low dose pravastatin- lower risk for statin related side effects- will need a close f/u with Neurology. start 10 mg daily, increase to 20 mg in 1-2 weeks. Hold folate - as blood level was elevated. F/u with pcp in 2 weeks to repeat blood work. TSH was elevated. So will increase thyroid med dose- will need tsh repeat in 6- 8 weeks Status at Discharge Functional status at discharge: independent ambulation Overall status at discharge: patient is progressing back to baseline Time Spent with Patient Time attestation: Total time spent providing and/or coordinating discharge services: Exam Narrative: General: female in no acute respiratory distress who is nontoxic appearing, sitting up in chair HEENT: Normocephalic. Atraumatic. Pupils equal round reactive to light. Extraocular movement intact. Sclera clear and anicteric. No facial asymmetry. Chest: Lungs are clear to auscultation bilaterally. No wheezes or crackles. CV: Heart was regular rate and rhythm. S1-S2. No murmurs, gallops, or rubs. Abd: Abdomen was soft. Nontender. Nondistended. Positive bowel sounds. No organomegaly or masses. Ext: No clubbing, cyanosis. DP pulses bilaterally. Slight bilateral lower extremity edema. Neuro: Patient is alert and oriented x4. Strength is 5/5 in both upper and lower extremities. No upper extremity drift. Cranial nerves 2-12 are intact. Speech is clear. Numbness to the right side of her face, worse along her lip line. Const: General: comfortable Other: Morbidly obese BMI greater 40, no acute distress, appears older than stated age HENMT: Other: Mucous membranes are tacky with areas of discolored plaquing to the tongue, head is normocephalic atraumatic Eyes: Other: Bilateral cataracts noted, no conjunctival pallor, no scleral icterus Neck: Other: Large neck circumference, no palpable thyroid Resp: Other: Clear to auscultation bilaterally, no increased work of breathing Cardio: Other: Regular rate, regular rhythm, 2+ bilateral radial pedal pulses, no murmur GI: Other: Obese, soft, nontender Back/Spine/Pelvis: Other: Moderate thoracic kyphosis Skin: Other: No pallor, non jaundice Neuro: Other: Alert orient x4, speech is clear, no obvious facial asymmetry, decreased visual acuity right greater than left, pupils are equal and reactive, subjective paresthesias of the right face, equal sensation of bilateral and, no dysmetria of the upper extremities, mild dysmetria of the left lower extremity, no pronator drift Extrem: Other: No pitting edema, moves all extremities equally, 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 Psych: Other: Anxious, loquacious, pleasant and cooperative, fair judgment and insight DS: Data Data Completed and Pending Labs on day of discharge: Labs from last 24 hours 06/03/24 05:01 WBC 4.4 L RBC 4.13 L Hgb 13.7 Hct 42.9 MCV 103.9 H MCH 33.2 MCHC 31.9 L RDW 12.1 Plt Count 200 MPV 8.6 Sodium 138 Potassium 4.3 Chloride 101 Carbon Dioxide 30 Anion Gap 7 BUN 17 Creatinine 0.95 Estim Creat Clear Calc Not Reportable Estimated GFR 59 Glucose 97 Calcium 8.6 Total Bilirubin 0.7 AST 32 ALT 16 Alkaline Phosphatase 77 Total Protein 7.0 Albumin 4.2 Discharge Plan Discharge Attending physician on discharge: Kwadwo Nash Discharging Clinician: Tri Yip Patient Disposition: Home, Self-Care Activity: may shower Diet: heart healthy Discharge Instructions: You were admitted for numbness and tingling. Your calcium level was low but normal now. TSH was elevated- so i will increase your thyroid dose- please have level rechecked in 6-8 weeks. State pravastatin as we discussed and have neurology monitor for side effects.Start with 10 mg daily and increase dose to 20 mg in 1-2 weeks to ensure no side effects. Continue asa and plavix until instructed otherwise per neurology. Hold folate for now as your blood level was slightly elevated. Patient Instructions: Antibiotic Form Patient Language: Tamazight Stand Alone Forms: General Discharge Information Follow-up/Referrals: Angy Willard MD [Physician] - 2 Weeks Adrienne Pereira PA-C [Primary Care Provider] - 2 Weeks Discharge Medications: New clopidogrel 75 mg Tablet 75 mg PO QAM Qty: 90 0RF aspirin [Children's Aspirin] 81 mg Tablet,Chewable 81 mg PO DAILY@0800 Qty: 90 0RF pravastatin 10 mg tablet 10 mg PO DAILY Qty: 90 0RF Rx Instructions: start 10 mg daily for a week or two, then increase to 20 mg Continued nitroglycerin 0.4 mg tablet, sublingual 0.4 mg sublingual Q5M PRN (Reason: chest pain) Qty: 10 0RF Rx Instructions: do not exceed 3 doses per episode calcium carbonate [Calcium 500] 500 mg calcium (1,250 mg) tablet,chewable 1,500 mg PO TID ketoconazole 2 % cream 1 applic topical BID Qty: 60 2RF Rx Instructions: apply to affected area BID calcitriol 0.5 mcg capsule 0.5 mcg PO Q12H ondansetron 4 mg tablet,disintegrating 4 mg PO Q6H PRN (Reason: nausea and vomiting) potassium chloride 20 mEq tablet extended release 20 meq PO DAILY PRN (Reason: edema) Qty: 90 0RF Rx Instructions: take when taking more than Lasix 20 mg daily - MANAGED BY CARDIO albuterol sulfate 90 mcg/actuation HFA aerosol inhaler 2 puff inhalation Q4-6H PRN (Reason: shortness of breath or wheezing) Qty: 8.5 1RF tizanidine 4 mg capsule 4 mg PO BID PRN (Reason: muscle spasticity) Qty: 60 2RF ropinirole 4 mg tablet 4 mg PO TID Qty: 270 1RF ergocalciferol (vitamin D2) 1,250 mcg (50,000 unit) capsule 1,250 mcg PO WEEKLY Qty: 12 1RF Patient Comments: TAKES ON SAT furosemide 20 mg tablet 20 mg PO BID Qty: 180 1RF Claritin-D 24 Hour 10-240 mg tablet extended release 24 hr 1 tablet PO DAILY Qty: 30 5RF alprazolam 1 mg tablet 1 mg PO BID PRN (Reason: anxiety) Qty: 60 2RF hydrocodone-acetaminophen 10-325 mg tablet 1 tablet PO Q6H PRN (Reason: DDD L/S spine, Polyarthralgias due to hypocalcemia) Qty: 105 0RF Changed levothyroxine 137 mcg tablet 150 mcg PO DAILY Qty: 90 1RF Held folic acid 1 mg tablet 1 mg PO DAILY Qty: 90 0RF Hold Instructions: Resume on 06/13/24. your folate level was a little elevated. HOld until instructed to restart per PCP Date of admission: 06/01/24 20:16 Primary Care Provider: Adrienne Pereira I. Admitting Provider: Delmy Cross Attending physician on admission: Emiliana Morrison Condition: Stable Quality VTE Prophylaxis VTE prophylaxis: pharmacologic ordered
== END 2024-06-03 16:21 | disposition home or self-care (01) ==
LOC: ANHED 20:19 → ANH2MED 06-02 06:41
PROVIDERS: Registered Nurse; Admitting Provider Internal Medicine; Emergency Provider Physician Assistant; PCP Physician Assistant Medical; Visit Provider Student in an Organized Health Care Education/Training Program
DX: R20.0 Anesthesia of skin (principal); R29.810 Facial weakness; R47.1 Dysarthria and anarthria; E83.51 Hypocalcemia; E89.0 Postprocedural hypothyroidism; E56.8 Deficiency of other vitamins; R71.8 Other abnormality of red blood cells; I51.89 Other ill-defined heart diseases; M79.89 Other specified soft tissue disorders; I73.00 Raynaud's syndrome without gangrene; J30.9 Allergic rhinitis, unspecified; F43.12 Post-traumatic stress disorder, chronic; G62.9 Polyneuropathy, unspecified; M48.02 Spinal stenosis, cervical region; Z66 Do not resuscitate; Z79.899 Other long term (current) drug therapy; Z87.891 Personal history of nicotine dependence; Z98.84 Bariatric surgery status
CPT/HCPCS: 36415; 70450; 70553; 80053; 80061; 81001; 82330; 82607; 82746; 83735; 84100; 84436; 84443; 84480; 84484; 85025; 85027; 85610; 85730; 87086; 93005; 93306; 93880; 93970; 96365; 96367; 96375; 97161; 99285; A9270; A9579; G0378; J0612; J1650; J3475